=== PATIENT | male | born 1940 | race Caucasian/White ===

== ENCOUNTER → 2021-03-18 07:50 | Outpatient (CLI) | payer MEDICARE, SELFPAY ==
[2021-03-18 09:11] LABS: Alanine Aminotransferase 13 IU/L (<50); Albumin 3.8 g/dL (3.5-5.0); Albumin Globulin Ratio 1.6 (1.0-2.8); Alkaline Phosphatase 38 U/L (38-126); Aspartate Aminotransferase 20 IU/L (17-59); Bilirubin Total 0.8 mg/dL (0.2-1.3); Blood Urea Nitrogen 12 mg/dL (9-20); Carbon Dioxide 29 mmol/L (22-32); Chloride 104 mmol/L (98-107); Cholesterol 214 mg/dL (140-199); Estimated Glomerular Filt Rate > 60.0 mL/min (>60); Globulin 2.4 g/dL (1.7-4.1); Glucose 89 mg/dL (80-110); HDL Cholesterol 56 mg/dL (40-60); HEMOLYSIS < 15 (0-50); LDL Cholesterol Calculated 134 mg/dL (<100); Potassium 4.1 mmol/L (3.4-5.1); Sodium 137 mmol/L (137-145); Total Protein 6.2 g/dL (6.3-8.2); Triglycerides 120 mg/dL (35-150)
[2021-03-18 09:27] LABS: Free T4, Direct Thyroxine 1.01 ng/dL (0.78-2.19)
[2021-03-18 09:41] LABS: Thyroid Stimulating Hormone 2.94 uIU/mL (0.47-4.68)
== END ==
PROVIDERS: Family Provider Family Medicine; PCP Internal Medicine; Referring Provider Internal Medicine; Visit Provider Internal Medicine
DX: E03.9 Hypothyroidism, unspecified (principal); Z13.220 Encounter for screening for lipoid disorders
CPT/HCPCS: 36415; 80053; 80061; 84439; 84443

== ENCOUNTER → 2024-03-21 16:02 | Outpatient (CLI) | payer MEDICARE, SELFPAY ==
[2024-03-21 16:32] LABS: Add Manual Diff / Slide Review NO; Basophils Absolute Auto 100 /uL (0-100); Basophils Percent Auto 0.8 % (0-2); Eosinophils Absolute Auto 100 /uL (0-450); Eosinophils Percent Auto 1.9 % (2-4); Hematocrit 40.4 % (41-53); Hemoglobin 13.9 g/dL (13.5-17.5); Lymphocytes Absolute Auto 2200 /uL (1100-4500); Lymphocytes Percent Auto 35.5 % (25-40); Mean Corpuscular HGB Conc 34.3 % (30-36); Mean Corpuscular Hemoglobin 32.6 PG (26-34); Mean Corpuscular Volume 95.1 fL (80-100); Monocytes Absolute Auto 800 /uL (0-900); Monocytes Percent Auto 12.3 % (3-14); Neutrophils Absolute Auto 3100 /uL (1500-7000); Neutrophils Percent Auto 49.5 % (50-75); Platelet Count 148 X10^3/uL (150-400); Red Blood Cell Count 4.25 X10^6/uL (4.5-5.9); Red Cell Distribution Width 14.7 % (11.6-14.8); White Blood Cell Count 6.3 X10^3/uL (4.5-11.0)
[2024-03-21 17:02] LABS: Alanine Aminotransferase 11 IU/L (<50); Albumin 4.3 g/dL (3.5-5.0); Albumin Globulin Ratio 1.6 (1.0-2.8); Alkaline Phosphatase 42 U/L (38-126); Aspartate Aminotransferase 20 IU/L (17-59); BUN Creatinine Ratio 17.7 (6-22); Bilirubin Total 0.6 mg/dL (0.2-1.3); Blood Urea Nitrogen 14 mg/dL (9-20); Calcium 8.9 mg/dL (8.4-10.2); Carbon Dioxide 28 mmol/L (22-32); Chloride 108 mmol/L (98-107); Estimated Glomerular Filt Rate > 60 mL/min (>60); Globulin 2.7 g/dL (1.7-4.1); Glucose 102 mg/dL (80-110); HEMOLYSIS < 15 (0-50); Potassium 4.7 mmol/L (3.4-5.1); Sodium 139 mmol/L (137-145)
[2024-03-21 17:17] LABS: Free T3, Triiodothyronine Free 3.43 pg/mL (2.77-5.27); Free T4, Direct Thyroxine 1.15 ng/dL (0.78-2.19)
[2024-03-21 17:30] LABS: Thyroid Stimulating Hormone 1.87 uIU/mL (0.47-4.68)
== END ==
PROVIDERS: Family Provider Family Medicine; PCP Internal Medicine; Referring Provider Internal Medicine; Visit Provider Internal Medicine
DX: E03.9 Hypothyroidism, unspecified (principal); D64.9 Anemia, unspecified; Z79.899 Other long term (current) drug therapy
CPT/HCPCS: 36415; 80053; 84439; 84443; 84481; 85025

== ENCOUNTER → 2024-03-23 16:15 | Outpatient (CLI) | payer MEDICARE, SELFPAY ==
[2024-03-23 17:56] LABS: Appearance Urine UA SL CLOUDY; Bilirubin Urine UA NEGATIVE (NEGATIVE); Color Urine UA YELLOW; Glucose Urine UA NEGATIVE (Negative); Ketones Urine UA NEGATIVE (NEGATIVE); Leukocyte Esterase Urine UA 3+ (NEGATIVE); Nitrite Urine UA POSITIVE (Negative); Occult Blood Urine UA TRACE-INTACT (Negative); Protein Urine UA NEGATIVE (Negative)
[2024-03-23 18:06] LABS: RBC Urine 1-5/HPF (0-5/HPF); Urine Volume 10mL (spun)
[2024-03-23 18:07] LABS: Bacteria Urine Few (2-10); Culture Indicated Urine Specimen Cultured; Squamous Epithelial Cell Urine 1-5 /HPF (0-5/HPF); WBC Urine 30-100/HPF (0-5/HPF)
== END ==
PROVIDERS: Family Provider Family Medicine; PCP Internal Medicine; Referring Provider Internal Medicine; Visit Provider Internal Medicine
DX: M54.9 Dorsalgia, unspecified (principal); R39.198 Other difficulties with micturition
CPT/HCPCS: 81001; 87077; 87086; 87186

== ENCOUNTER 2024-04-02 18:42 | Emergency (ER) | payer MEDICARE, SELFPAY ==
[2024-04-02 18:59] VITALS: BP 123/58; PULSE 61; RESP 18; TEMP 36.9; O2SAT 96; BMI 20.8
--- NOTE | 2024-04-02 19:15 | EKG_ITS ---
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
[2024-04-02 19:28] LABS: Add Manual Diff / Slide Review NO; Basophils Absolute Auto 0 /uL (0-100); Basophils Percent Auto 0.4 % (0-2); Eosinophils Absolute Auto 0 /uL (0-450); Eosinophils Percent Auto 0.2 % (2-4); Hematocrit 36.7 % (41-53); Hemoglobin 12.8 g/dL (13.5-17.5); Lymphocytes Absolute Auto 900 /uL (1100-4500); Mean Corpuscular HGB Conc 34.8 % (30-36); Mean Corpuscular Hemoglobin 32.5 PG (26-34); Mean Corpuscular Volume 93.2 fL (80-100); Monocytes Absolute Auto 600 /uL (0-900); Monocytes Percent Auto 7.6 % (3-14); Neutrophils Absolute Auto 6800 /uL (1500-7000); Neutrophils Percent Auto 80.8 % (50-75); Platelet Count 177 X10^3/uL (150-400); Red Blood Cell Count 3.94 X10^6/uL (4.5-5.9); Red Cell Distribution Width 13.6 % (11.6-14.8); White Blood Cell Count 8.4 X10^3/uL (4.5-11.0)
[2024-04-02 19:37] LABS: Alanine Aminotransferase 11 IU/L (<50); Albumin 4.3 g/dL (3.5-5.0); Albumin Globulin Ratio 1.7 (1.0-2.8); Alkaline Phosphatase 44 U/L (38-126); Aspartate Aminotransferase 22 IU/L (17-59); BUN Creatinine Ratio 7.2 (6-22); Bilirubin Total 0.8 mg/dL (0.2-1.3); Blood Urea Nitrogen 10 mg/dL (9-20); Calcium 8.3 mg/dL (8.4-10.2); Carbon Dioxide 21 mmol/L (22-32); Chloride 94 mmol/L (98-107); Estimated Glomerular Filt Rate 50 mL/min (>60); Globulin 2.5 g/dL (1.7-4.1); Glucose 118 mg/dL (80-110); HEMOLYSIS < 15 (0-50); Lipase 71 U/L (23-300); Potassium 3.9 mmol/L (3.4-5.1); Sodium 124 mmol/L (137-145); Total Protein 6.8 g/dL (6.3-8.2)
--- NOTE | 2024-04-02 22:25 | DI.CT.S_ITS ---
PROCEDURE: CT ABDOMEN PELVIS W CON INDICATIONS: abdominal pain TECHNIQUE: After the administration of intravenous contrast, axial sections acquired from the lung bases to the pubic symphysis. Coronal and sagittal reformats were performed. For radiation dose reduction, the following was used: automated exposure control, adjustment of mA and/or kV according to patient size. COMPARISON: None. FINDINGS: Image quality: Diagnostic Lower chest: Bibasilar atelectasis. There are coronary calcifications. Liver: Suspected cysts near the hilum. Subcentimeter lesions are too small to characterize, probably also cysts Gallbladder and biliary system: Unremarkable, nondilated Pancreas: No ductal dilation. Spleen: Nonenlarged Adrenals: No discrete nodules Kidneys: Moderate bilateral pelvocaliectasis. No obstructing calcified stone is identified. There is a complicated lesion that may be partially cystic measuring 2.9 x 1.8 cm at the left upper pole. Vessels and lymph nodes: The main portal vein is patent. No abdominal aortic aneurysm. Atherosclerotic disease is present. No pathologic lymph nodes by size criteria. Bowel and peritoneum: No evidence of small bowel obstruction. Mild fat stranding and wall thickening is seen surrounding the descending colon distally.. No pathologic ascites. Body wall: Unremarkable Pelvis: Markedly distended bladder, with diverticula trabeculations. Heterogeneous prostate with possible median lobe hypertrophy. Prostatomegaly. Right probable inguinal hernia containing fat and fluid. Bones: Degenerative changes. IMPRESSION: Markedly distended bladder with multiple trabeculations and diverticula. Moderate upstream pelvocaliectasis of both kidneys. Heterogeneous prostate with probable median lobe hypertrophy and BPH, correlate with PSA and possible MRI. Mild fat stranding of the distal colon, possibly nonspecific colitis. Consider colonoscopy correlation if clinically indicated. No small bowel obstruction. Complicated lesion at the left superior renal pole, likely partially solid and partially cystic. Consider renal mass protocol MRI to further evaluate. Possible right inguinal hernia containing fat and fluid, this could be better evaluated ultrasound if needed. Other findings as above. Dictated by: Shaheen Alvarado M.D. on 04/02/2024 at 23:26 Approved by: Shaheen Alvarado M.D. on 04/02/2024 at 23:31
--- NOTE | 2024-04-02 22:39 | EKG_ITS ---
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
--- NOTE | 2024-04-02 22:41 | ED.ABDPAIN ---
HPI - Abdominal Pain General Chief Complaint: Abdominal Pain Stated Complaint: Constipation, swollen abd, pain Time Seen by Provider: 04/02/24 22:25 Source: patient and family Mode of arrival: Wheelchair History of Present Illness HPI narrative: 83-year-old male with recent diagnosis urinary tract infection, day 9 of 10 day course Bactrim, denies prior abdominal surgery history, prior remote colonoscopy, no known bowel cancers, now with increasing abdominal pain, last bowel movement 3 days ago. He denies painful urination now. No flank pain. No fevers or chills. No shortness of breath or chest pain. No recent cough. He denies history of colitis, diverticulitis. He feels his urinary tract symptoms are better on the recent antibiotic. Related Data Previous Rx's Medication Instructions Recorded sildenafil 100 mg tablet 50 - 100 mg (0.5 - 1 x 100 mg) PO 03/21/21 DAILY PRN sexual activity #5 tabs citalopram 10 mg tablet 10 mg PO DAILY #90 tabs 03/22/24 sulfamethoxazole 800 1 tab PO BID 10 days #20 tabs 03/24/24 mg-trimethoprim 160 mg tablet amoxicillin 875 mg-potassium 1 tab PO BID #20 tabs 04/03/24 clavulanate 125 mg tablet tamsulosin 0.4 mg capsule 0.4 mg PO DAILY #7 caps 04/03/24 Allergies Allergy/AdvReac Type Severity Reaction Status Date / Time No Known Drug Allergies Allergy Verified 04/02/24 18:59 Review of Systems Review of Systems Narrative: per HPI Patient History Medical History (Updated 04/03/24 @ 00:23 by Garett Hayes MD) Dementia Acquired hypothyroidism Surgical History Anesthesia History of hernia repair Family History Father Cancer Mother Bronchitis Social History Smoking Status: Never smoker Smoking Status: Never smoker Substance Use Type: does not use Exam Narrative Exam Narrative: GENERAL: Well-developed patient, in mild distress. HEAD: Atraumatic. Normocephalic. EYES: Pupils equal round and reactive. Extraocular motions intact. No scleral icterus. No injection or drainage. ENT: Nose without bleeding, purulent drainage. Throat without erythema, tonsillar hypertrophy or exudate. Airway patent. NECK: Trachea midline. Non tender CARDIOVASCULAR: Regular rate and rhythm without murmurs, gallops, or rubs. RESPIRATORY: Clear to auscultation. Breath sounds equal bilaterally. No wheezes, rales, or rhonchi. GASTROINTESTINAL: Protuberant abdomen predominant lower, no obvious ventral periumbilical or inguinal hernias, no guarding or rebound, hypoactive bowel tones without rushes or tinkles. No obvious fluid wave. EXTREMITIES: No edema or joint tenderness. BACK: Nontender without deformity or crepitance. No flank tenderness. NEURO: AOx3. SKIN: No rash or erythema of visible areas Initial Vital Signs Initial Vital Signs: Vital Signs Temperature 98.5 F 04/02/24 18:59 Pulse Rate 61 04/02/24 18:59 Respiratory Rate 18 04/02/24 18:59 Blood Pressure 123/58 L 04/02/24 18:59 Pulse Oximetry 96 04/02/24 18:59 Oxygen Delivery Method Room Air 04/02/24 18:59 Course Orders Ordered: ED Orders 04/03/24 03:00 Urine Microscopic Stat Discontinued Medications Ampicillin Sodium/Sulbactam (Sodium 3 gm/ Sodium Chloride) 100 mls @ 200 mls/hr IV NOW ONE Stop: 04/03/24 00:21 Last Infusion: 04/03/24 02:40 Dose: Infused Documented By: Admin: 04/03/24 01:35 Dose: 200 mls/hr Documented By: BRIDGER Ondansetron HCl (Ondansetron 4 Mg/2 Ml Inj) 4 mg IV NOW PRN PRN Reason: Nausea And Vomiting Ondansetron HCl (Ondansetron 4 Mg Odt) 4 mg PO NOW PRN PRN Reason: Nausea And Vomiting Vital Signs Vital signs: Vital Signs - 8 hr 04/03/24 01:45 04/03/24 03:24 04/03/24 03:30 Pulse Rate 58 L 59 L Respiratory Rate 18 Blood Pressure 133/63 110/55 L Pulse Oximetry 98 95 Oxygen Delivery Method Room Air 04/03/24 03:30 04/03/24 03:32 04/03/24 04:00 Pulse Rate 56 L 56 L Respiratory Rate 18 Blood Pressure 110/55 L 110/55 L Pulse Oximetry 96 98 Oxygen Delivery Method Room Air 04/03/24 04:00 04/03/24 04:30 04/03/24 04:30 Pulse Rate 56 L 58 L Respiratory Rate Blood Pressure 109/54 L Pulse Oximetry 81 L 97 Oxygen Delivery Method 04/03/24 05:00 04/03/24 05:01 04/03/24 05:30 Pulse Rate 59 L 59 L Respiratory Rate Blood Pressure 97/46 L Pulse Oximetry 97 Oxygen Delivery Method 04/03/24 05:33 04/03/24 06:11 Pulse Rate 60 Respiratory Rate 18 Blood Pressure 98/47 L 115/56 L Pulse Oximetry 98 Oxygen Delivery Method Room Air MDM - Abdominal Pain Lab Data 04/02/24 19:12 04/02/24 19:12 Labs: Lab Results 04/02/24 04/03/24 Range/Units 19:12 03:00 WBC 8.4 (4.5-11.0) X10^3/uL RBC 3.94 L (4.5-5.9) X10^6/uL Hgb 12.8 L (13.5-17.5) g/dL Hct 36.7 L (41-53) % MCV 93.2 (80-100) fL MCH 32.5 (26-34) PG MCHC 34.8 (30-36) % RDW 13.6 (11.6-14.8) % Plt Count 177 (150-400) X10^3/uL Neut % (Auto) 80.8 H (50-75) % Lymph % (Auto) 11.0 L (25-40) % [place] % (Auto) 7.6 (3-14) % Eos % (Auto) 0.2 L (2-4) % Baso % (Auto) 0.4 (0-2) % Neut # (Auto) 6800 (1763-2326) /uL Lymph # (Auto) 900 L (5751-2966) /uL [place] # (Auto) 600 (0-900) /uL Eos # (Auto) 0 (0-450) /uL Baso # (Auto) 0 (0-100) /uL Sodium 124 L (137-145) mmol/L Potassium 3.9 (3.4-5.1) mmol/L Chloride 94 L (98-107) mmol/L Carbon Dioxide 21 L (22-32) mmol/L BUN 10 (9-20) mg/dL Creatinine 1.39 H (0.66-1.25) mg/dL Estimated GFR 50 L (>60) mL/min BUN/Creatinine Ratio 7.2 (6-22) Glucose 118 H (80-110) mg/dL Calcium 8.3 L (8.4-10.2) mg/dL Total Bilirubin 0.8 (0.2-1.3) mg/dL AST 22 (17-59) IU/L ALT 11 (<50) IU/L Alkaline Phosphatase 44 (38-126) U/L Total Protein 6.8 (6.3-8.2) g/dL Albumin 4.3 (3.5-5.0) g/dL Globulin 2.5 (1.7-4.1) g/dL Albumin/Globulin Ratio 1.7 (1.0-2.8) Lipase 71 (23-300) U/L Urine RBC 5-10/hpf H (0-5/HPF) Urine WBC None seen (0-5/HPF) Ur Squamous Epith Cells 0-1 /hpf (0-5/HPF) Urine Bacteria None seen (None) Ur Culture Indicated? Cult not indicated Vol Urine Centrifuged 10ml (spun) Point of care testing: Urine Dip Bedside Urine Glucose Negative Bedside Urine Bilirubin - Negative Bedside Urine Ketone - Negative Urine Specific [place] 1.010 Bedside Urine Occult Blood +++ Bedside Urine pH 6.0 Bedside Urine Protein - Negative Bedside Urine Urobilinogen 0.2 Bedside Urine Nitrite - Negative Bedside Urine Leukocytes - Negative Esterase ECG Data Attestation: I personally reviewed and interpreted this ECG as follows: Interpretation: Sinus bradycardia with frequent PVCs, ventricular rate 64, no obvious ST segment elevation on sinus beats. CT 122, QRS 92, QTC 476. MDM Narrative Medical decision making narrative: 83-year-old male with no prior abdominal pelvic surgeries, prior remote colonoscopy, no known colon cancers, last bowel movement 3 days ago, increasing lower abdominal discomfort. Completing a course of 10 days Bactrim by tomorrow for urinary tract infection, those symptoms seemed to be improving. No problems urinating. Last bowel movement was 3 days ago however he is having some loose trickling stools in the waiting room area and shortly after triage in the ED room. Stool studies requested, C diff toxin requested. Labs pending. Declines pain medications for now GFR favorable, CT abdomen and pelvis imaging requested. Stool study results still pending. CT abdomen and pelvis with IV contrast. Impressions: ?Markedly distended bladder with multiple trabeculations and diverticula. Moderate upstream pelvocaliectasis of both kidneys. Heterogeneous prostate with probable median lobe hypertrophy and BPH, correlate with PSA and possible MRI. Mild fat stranding of the distal colon, possible nonspecific colitis. Consider colonoscopy correlation if clinically indicated. No small bowel obstruction. Complicated lesion at the superior renal pole, likely partially solid and partially cystic. Consider renal mass protocol MRI to further evaluate. Possible right inguinal hernia containing fat and fluid, this could be better evaluated on ultrasound if needed. Other findings as above. Radiology report Durant urinary catheter placed, IV Unasyn for possible uncomplicated focal sigmoid colitis, discharge on oral Augmentin Critical Care Time Critical Care Time Critical Care Time: Yes Total Critical Care Time: 31 Attestation: The high probability of a clinically significant, sudden or life threatening deterioration of the [abdominopelvic, which gastrointestinal] system(s) required my full and direct attention, intervention and personal management. The aggregate critical care time was [31] minutes. This time is in addition to time spent performing reported procedures but includes the following: [x] Data Review and interpretation [x] Patient assessment and monitoring of vital signs [x] Documentation [x] Medication orders and management Discharge Plan Departure Patient Disposition: Home Clinical Impression: Acute urinary retention, Inguinal hernia, right, Colitis Activity Restrictions/Additional Instructions: Recent course of Bactrim antibiotic for urinary tract infection, increasing abdominal distention, last bowel movement 3 days ago, CT abdomen and pelvis performed which showed no bowel obstruction changes but did show markedly distended bladder, kidney lesion of unclear significance on the left, right inguinal hernia that was not associated with obstruction, and also some colitis changes in the distal colon. IV antibiotics initiated for possible colitis with Unasyn, prescription for Augmentin course of antibiotics for colitis. Durant catheter placed to drain the bladder, large volume nonbloody was drained, leave catheter in place for now, follow up with Urology advised. Trial of tamsulosin to see if that helps increase success of keeping Durant catheter out when removed in follow up, 1 tablet daily pending urology consult. Recheck symptoms with your regular provider in the next couple of days. Return to this/nearest emergency department for any change or worsening or any concerns prior Follow up MRI studies and outpatient advised for kidney lesion further workup Prescriptions: New amoxicillin-pot clavulanate 875-125 mg tablet 1 tab PO BID Qty: 20 0RF tamsulosin 0.4 mg capsule 0.4 mg PO DAILY Qty: 7 0RF No Action citalopram 10 mg tablet 10 mg PO DAILY Qty: 90 3RF sulfamethoxazole-trimethoprim 800-160 mg tablet 1 tab PO BID 10 Days Qty: 20 0RF sildenafil 100 mg tablet 50 - 100 mg PO DAILY PRN (Reason: sexual activity) Qty: 5 0RF Rx Instructions: administer 30 minutes to 4 hours before activity Referrals: Estuardo Hinton MD [Primary Care Provider] - Primo Mohamud MD [Physician] - Stand Alone Forms: Patient Portal/API
[2024-04-03] VITALS (11 sets, daily range): BP systolic 97–133; BP diastolic 46–63; PULSE 56–60; RESP 18; O2SAT 81–98
[2024-04-03] MEDS: AMPICILLIN/SULBACTAM 3 GM 3 GM in SODIUM CHLORIDE 0.9% 100 ML IV (01:35)
[2024-04-03 03:16] LABS: Bacteria Urine None Seen; Culture Indicated Urine Cult Not Indicated; RBC Urine 5-10/HPF (0-5/HPF); Squamous Epithelial Cell Urine 0-1 /HPF (0-5/HPF); Urine Volume 10mL (spun); WBC Urine None Seen (0-5/HPF)
== END 2024-04-03 06:22 | disposition home or self-care (01) ==
PROVIDERS: Emergency Provider Emergency Medicine; Family Provider Family Medicine; PCP Internal Medicine
DX: K52.9 Noninfective gastroenteritis and colitis, unspecified (principal); K40.90 Unilateral inguinal hernia, without obstruction or gangrene, not specified as recurrent; R33.8 Other retention of urine; R10.9 Unspecified abdominal pain
CPT/HCPCS: 36415; 74177; 80053; 81003; 81015; 83690; 85025; 93005; 96365; 99284; J0295; Q9967

== ENCOUNTER → 2024-04-18 11:24 | Outpatient (CLI) | payer MEDICARE, SELFPAY ==
[2024-04-18 13:12] LABS: BUN Creatinine Ratio 9.5 (6-22); Blood Urea Nitrogen 7 mg/dL (9-20); Calcium 8.5 mg/dL (8.4-10.2); Carbon Dioxide 29 mmol/L (22-32); Chloride 105 mmol/L (98-107); Estimated Glomerular Filt Rate > 60 mL/min (>60); Glucose 72 mg/dL (80-110); HEMOLYSIS < 15 (0-50); Potassium 4.6 mmol/L (3.4-5.1); Sodium 138 mmol/L (137-145)
== END ==
PROVIDERS: Family Provider Family Medicine; PCP Internal Medicine; Referring Provider Internal Medicine; Visit Provider Internal Medicine
DX: N28.1 Cyst of kidney, acquired (principal)
CPT/HCPCS: 36415; 80048

== ENCOUNTER → 2024-04-21 13:12 | Outpatient (CLI) | payer MEDICARE, SELFPAY ==
--- NOTE | 2024-04-21 13:17 | DI.MRI.S_ITS ---
PROCEDURE: MR ABDOMEN RENAL PROTOCOL INDICATIONS: left renal cyst TECHNIQUE: Coronal HASTE through abdomen and pelvis; axial 2D FLASH in- and [id number] (with and without fat saturation), and breath-hold T2 FSE from the hepatic dome to the bottom of the kidneys. Coronal HASTE MR urogram of kidneys and bladder. Dynamic coronal VIBE during IV gadolinium administration; postgadolinium axial VIBE or 2D FLASH with fat saturation from the hepatic dome through the kidneys. COMPARISON: [facility], CT, CT ABDOMEN PELVIS W CON, 04/02/2024, 22:37. FINDINGS: Image quality: Suboptimal due to motion artifact. Kidneys and Ureters: No hydronephrosis. No solid mass. N on the superior pole of the left kidney, there is a cystic lesion with thin internal septations and a small nodular component measuring 8 x 8 mm (series 6, image 24). The cyst measures 1.9 x 1.7 cm. The cyst is exophytic. OTHER: Lung bases: Unremarkable. Liver: Hepatic cysts. Gallbladder: No gallstones or wall thickening. Biliary ducts: No biliary dilation. Pancreas: No ductal dilation. 8 mm cystic lesion in the pancreatic tail, without connection to the pancreatic duct (series 6, image 24). Spleen: Size is within normal limits. Adrenal Glands: No adrenal nodules. Stomach and Bowel: Normal colonic caliber, without significant wall thickening. Peritoneum: No abnormal intraperitoneal fluid. No free air. Ventral Wall: No hernia. Abdominal Nodes: No retroperitoneal or mesenteric adenopathy by size criteria. Vessels: Aorta and inferior vena cava are normal in size. Bones: No aggressive osseous abnormality. 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 Recommend urology referral. 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 Two year follow-up with MRI is recommended. Dictated by: Jerardo Ortiz M.D. on 04/21/2024 at 14:03 Approved by: Jerardo Ortiz M.D. on 04/21/2024 at 14:14
== END ==
PROVIDERS: Family Provider Family Medicine; PCP Internal Medicine; Referring Provider Internal Medicine; Visit Provider Internal Medicine
DX: N28.1 Cyst of kidney, acquired (principal); K86.2 Cyst of pancreas; K76.89 Other specified diseases of liver
CPT/HCPCS: 74183; A9579

== ENCOUNTER → 2024-04-24 13:49 | Outpatient (CLI) | payer MEDICARE, SELFPAY | PROVIDERS: Family Provider Family Medicine; PCP Internal Medicine; Visit Provider Urology | DX: N40.1 Benign prostatic hyperplasia with lower urinary tract symptoms (principal) | CPT/HCPCS: 87086 ==

== ENCOUNTER → 2024-05-02 10:02 | Outpatient (CLI) | payer MEDICARE, SELFPAY ==
--- NOTE | 2024-05-02 10:30 | DI.CT.S_ITS ---
PROCEDURE: CT ABDOMEN RENAL PROTOCOL INDICATIONS: Follow-up complex cyst TECHNIQUE: Optional 5 mm thick noncontrast images acquired from the diaphragm to the iliac crests. After the administration of intravenous contrast, 5 mm thick images again acquired from the diaphragm to the iliac crests in the arterial and urographic phases. 5 mm thick coronal and sagittal reformats were then acquired. For radiation dose reduction, the following was used: automated exposure control, adjustment of mA and/or kV according to patient size. COMPARISON: [facility], , ABDOMEN RENAL PROTOCOL, 04/21/2024, 13:25. FINDINGS: Image quality: Diagnostic. Kidneys and Ureters: Mostly exophytic, 1.6 x 2.3 centimeter cystic mass with enhancing 1 centimeter nodule along the medial margin is present along the anterior margin of the left kidney. Renal vein is widely patent. No retroperitoneal adenopathy. No retroperitoneal adenopathy. OTHER: Lower chest: Small pericardial effusion. Liver: No solid mass. Hepatic cysts. Gallbladder: No radiopaque gallstones or wall thickening. Biliary ducts: No biliary dilation. Pancreas: No ductal dilation. Spleen: Size is within normal limits. Adrenal Glands: No adrenal nodules. Stomach and Bowel: Normal colonic caliber, without significant wall thickening. Peritoneum: No abnormal intraperitoneal fluid. No free air. Ventral Wall: No hernia. Abdominal Nodes: No retroperitoneal or mesenteric adenopathy by size criteria. Vessels: Aorta and inferior vena cava are normal in size. Bones: No aggressive osseous abnormality. IMPRESSION: Bosniak 4 cystic mass on the anterior margin of the left kidney, containing an enhancing nodule. No retroperitoneal adenopathy. Renal vein is widely patent. Dictated by: Jerardo Ortiz M.D. on 05/03/2024 at 12:32 Approved by: Jerardo Ortiz M.D. on 05/03/2024 at 12:37
== END ==
LOC: CT 10:03
PROVIDERS: Family Provider Family Medicine; PCP Internal Medicine; Referring Provider Urology; Visit Provider Urology
DX: N28.1 Cyst of kidney, acquired (principal); N28.89 Other specified disorders of kidney and ureter; N40.1 Benign prostatic hyperplasia with lower urinary tract symptoms; Z97.8 Presence of other specified devices; K76.89 Other specified diseases of liver
CPT/HCPCS: 74170; 87086; Q9967

== ENCOUNTER → 2024-05-02 13:45 | Outpatient (CLI) | payer MEDICARE, SELFPAY | PROVIDERS: Family Provider Family Medicine; PCP Internal Medicine; Visit Provider Urology | DX: N40.1 Benign prostatic hyperplasia with lower urinary tract symptoms (principal); Z97.8 Presence of other specified devices | CPT/HCPCS: 87086 ==

== ENCOUNTER → 2024-06-09 13:09 | Outpatient (CLI) | payer MEDICARE, SELFPAY | PROVIDERS: Family Provider Family Medicine; PCP Internal Medicine; Visit Provider Urology | DX: N39.0 Urinary tract infection, site not specified (principal) | CPT/HCPCS: 87077; 87086; 87186 ==

== ENCOUNTER → 2024-08-07 11:48 | Outpatient (CLI) | payer MEDICARE, SELFPAY ==
[2024-08-07 12:49] LABS: Add Manual Diff / Slide Review NO; Basophils Absolute Auto 0 /uL (0-100); Basophils Percent Auto 0.2 % (0-2); Eosinophils Absolute Auto 100 /uL (0-450); Eosinophils Percent Auto 1.1 % (2-4); Hematocrit 36.4 % (41-53); Hemoglobin 12.4 g/dL (13.5-17.5); Lymphocytes Absolute Auto 1300 /uL (1100-4500); Lymphocytes Percent Auto 26.3 % (25-40); Mean Corpuscular Hemoglobin 32.1 PG (26-34); Mean Corpuscular Volume 94.5 fL (80-100); Monocytes Absolute Auto 500 /uL (0-900); Monocytes Percent Auto 10.3 % (3-14); Neutrophils Absolute Auto 3000 /uL (1500-7000); Neutrophils Percent Auto 62.1 % (50-75); Platelet Count 143 X10^3/uL (150-400); Red Blood Cell Count 3.85 X10^6/uL (4.5-5.9); Red Cell Distribution Width 14.9 % (11.6-14.8); White Blood Cell Count 4.8 X10^3/uL (4.5-11.0)
[2024-08-07 13:14] LABS: Alanine Aminotransferase 10 IU/L (<50); Albumin 4.1 g/dL (3.5-5.0); Albumin Globulin Ratio 1.9 (1.0-2.8); Alkaline Phosphatase 37 U/L (38-126); Aspartate Aminotransferase 17 IU/L (17-59); BUN Creatinine Ratio 24.6 (6-22); Bilirubin Total 0.5 mg/dL (0.2-1.3); Blood Urea Nitrogen 16 mg/dL (9-20); Calcium 9.1 mg/dL (8.4-10.2); Carbon Dioxide 28 mmol/L (22-32); Chloride 104 mmol/L (98-107); Estimated Glomerular Filt Rate > 60 mL/min (>60); Globulin 2.2 g/dL (1.7-4.1); Glucose 89 mg/dL (80-110); HEMOLYSIS < 15 (0-50); Potassium 4.4 mmol/L (3.4-5.1); Sodium 137 mmol/L (137-145); Total Protein 6.3 g/dL (6.3-8.2)
[2024-08-07 13:46] LABS: TSH w/ Reflex to FT4 4.81 uIU/mL (0.47-4.68)
[2024-08-07 14:11] LABS: Free T4, Direct Thyroxine 0.88 ng/dL (0.78-2.19)
== END ==
PROVIDERS: Family Provider Family Medicine; PCP Internal Medicine; Referring Provider Internal Medicine; Visit Provider Internal Medicine
DX: R33.9 Retention of urine, unspecified (principal); E03.9 Hypothyroidism, unspecified; N13.9 Obstructive and reflux uropathy, unspecified
CPT/HCPCS: 36415; 80053; 84439; 84443; 85025

== ENCOUNTER → 2024-08-14 11:18 | Outpatient (CLI) | payer MEDICARE, SELFPAY | PROVIDERS: Family Provider Family Medicine; PCP Internal Medicine; Visit Provider Urology | DX: N39.0 Urinary tract infection, site not specified (principal) | CPT/HCPCS: 51702; 87077; 87086; 87186 ==

== ENCOUNTER 2024-08-26 08:57 | Emergency (ER) | payer MEDICARE, SELFPAY ==
[2024-08-26] VITALS (11 sets, daily range): BP systolic 112–136; BP diastolic 56–62; PULSE 30–54; RESP 14–40; TEMP 36.6; O2SAT 97–100; BMI 22.3
--- NOTE | 2024-08-26 09:19 | EKG_ITS ---
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
--- NOTE | 2024-08-26 09:31 | PC.NURSE ---
HR on monitor noted to be 30, bigeminy. confirmed with palpation. 16 F coude cath placed. HR now 55-60 NSR with ectopy noted.
--- NOTE | 2024-08-26 09:45 | ED.MALEGU ---
HPI - Male Genitourinary General Chief complaint: Urogenital-Male Stated complaint: catheter came out last night Time Seen by Provider: 08/26/24 09:45 History of Present Illness HPI Narrative: Patient is a 84-year-old male with a history of neurogenic bladder, hypothyroidism, dementia, presents to the emergency department from home with family for evaluation of Durant catheter issue. He states that yesterday his Durant catheter came out, was noted that the Durant catheter balloon was deflated, he states that he also felt a little bit weaker today, he states that he was up all night due to urinary urgency but was not able to urinate very much given the fact that his Durant catheter was not in place. Upon initial evaluation patient was bradycardic but not complaining of any chest pain shortness breath headache visual disturbances, patient family member at bedside states this happened happened in the past whenever he has a full bladder. there was significant improvement to his heart rate after Durant catheter was replaced, patient is not complaining of any other symptoms at this time. Related Data Previous Rx's Medication Instructions Recorded finasteride 5 mg tablet 5 mg PO DAILY #30 tabs 05/26/24 tamsulosin 0.4 mg capsule 0.8 mg (2 x 0.4 mg) PO DAILY #60 05/26/24 caps citalopram 20 mg tablet 20 mg PO DAILY #90 tabs 08/11/24 Allergies Allergy/AdvReac Type Severity Reaction Status Date / Time No Known Drug Allergies Allergy Verified 08/07/24 11:05 Review of Systems Review of Systems Narrative: General: positive general weakness, Denies fever, chills, weight loss HEENT: Denies headache, eye drainage, eye irritation, head trauma, sore throat, voice change Cardiovascular: Denies any chest pain, palpitations, shortness of breath, tachycardia Respiratory: Denies any shortness of breath, cough, wheeze, stridor GI/: positive Durant catheter issue, positive urinary frequencyDenies any abdominal pain, nausea, vomiting, diarrhea, bright red blood per rectum, melanotic stools, udysuria, hematuria MSK: Denies any joint pain, muscle pains, swelling Skin: Denies any rashes, lesions, discoloration Neuro: Denies any headache, lightheadedness, dizziness, fainting, weakness Psych: Denies SI/HI Patient History Medical History (Updated 08/26/24 @ 11:13 by Nasir Dill DO) Urinary tract infection Urinary retention Durant catheter in place Obstructive uropathy Complex renal cyst Dementia Acquired hypothyroidism Surgical History Anesthesia History of hernia repair Family History Father Cancer Mother Bronchitis Social History Smoking Status: Never smoker alcohol intake: never caffeine: Yes Smoking Status: Never smoker Substance Use Type: does not use Exam Narrative Exam Narrative: General: Cooperative, comfortable, well-developed, not in acute distress HEENT: Normocephalic, atraumatic, PERRLA, normal sclera, eyelids normal, Neck: Active full range of motion, atraumatic Chest: Normal to inspection, negative crepitus, no overlying erythema ecchymosis Respiratory: Normal respiratory effort, not in acute respiratory distress, clear to auscultation bilaterally negative cough, wheeze, tachypnea, rhonchi, rales Cardiology: Regular rate rhythm negative gallop, murmur, rubs GI/: Normal to inspection, soft, nonrigid, no tenderness to palpation, exam: Durant catheter was replaced draining normal colored urine MSK: Full range of active range of motion of all 4 extremities, atraumatic Skin: No rashes lesions noted Neuro: Alert awake oriented x3, moves all 4 extremities spontaneously, cranial nerves intact, able to answer all questions appropriately follows commands appropriately, NIH of 0 Psych: Cooperative, negative suicidal or homicidal ideations Initial Vital Signs Initial Vital Signs: Vital Signs Pulse Rate 31 L 08/26/24 09:13 Pulse Oximetry 99 08/26/24 09:13 Course Orders Ordered: ED Orders 08/26/24 09:18 CBC Auto Diff [Complete Blood Count AUTO DIFF] Stat CMP [Comprehensive Metabolic Panel] Stat Lipase Stat MAG [Magnesium] Stat Troponin & CK Cardiac Panel Stat 08/26/24 09:35 EKG-12 Lead Stat 08/26/24 09:54 XR chest 1V Stat Vital Signs Vital signs: Vital Signs - 8 hr 08/26/24 09:13 08/26/24 09:28 08/26/24 09:30 Temperature 97.8 F Pulse Rate 31 L 30 L Respiratory Rate 16 Blood Pressure 136/62 124/58 L Pulse Oximetry 99 99 Oxygen Delivery Method Room Air 08/26/24 09:30 Temperature Pulse Rate 54 L Respiratory Rate 28 H Blood Pressure Pulse Oximetry 99 Oxygen Delivery Method MDM - Male Genitourinary Differential Diagnosis Differential diagnosis: Likely other ( ACS, arrhythmia, Durant catheter malfunction) Lab Data 08/26/24 09:18 08/26/24 09:18 Labs: Lab Results 08/26/24 Range/Units 09:18 WBC 7.2 (4.5-11.0) X10^3/uL RBC 4.12 L (4.5-5.9) X10^6/uL Hgb 13.0 L (13.5-17.5) g/dL Hct 39.1 L (41-53) % MCV 94.9 (80-100) fL MCH 31.6 (26-34) PG MCHC 33.3 (30-36) % RDW 14.9 H (11.6-14.8) % Plt Count 142 L (150-400) X10^3/uL Neut % (Auto) 78.7 H (50-75) % Lymph % (Auto) 14.3 L (25-40) % [place] % (Auto) 6.3 (3-14) % Eos % (Auto) 0.4 L (2-4) % Baso % (Auto) 0.3 (0-2) % Neut # (Auto) 5700 (5978-6715) /uL Lymph # (Auto) 1000 L (7471-1768) /uL [place] # (Auto) 500 (0-900) /uL Eos # (Auto) 0 (0-450) /uL Baso # (Auto) 0 (0-100) /uL Sodium 134 L (137-145) mmol/L Potassium 3.6 (3.4-5.1) mmol/L Chloride 104 (98-107) mmol/L Carbon Dioxide 24 (22-32) mmol/L BUN 11 (9-20) mg/dL Creatinine 0.73 (0.66-1.25) mg/dL Estimated GFR > 60 (>60) mL/min BUN/Creatinine Ratio 15.1 (6-22) Glucose 115 H (80-110) mg/dL Calcium 8.6 (8.4-10.2) mg/dL Magnesium 2.0 (1.6-2.3) mg/dL Total Bilirubin 0.7 (0.2-1.3) mg/dL AST 40 (17-59) IU/L ALT 18 (<50) IU/L Alkaline Phosphatase 46 (38-126) U/L Total Creatine Kinase 60 (55-170) U/L Troponin I < 0.012 (0.01-0.034) ng/mL Total Protein 6.5 (6.3-8.2) g/dL Albumin 4.0 (3.5-5.0) g/dL Globulin 2.5 (1.7-4.1) g/dL Albumin/Globulin Ratio 1.6 (1.0-2.8) Lipase 79 (23-300) U/L Urine Dip Bedside Urine Glucose Negative Bedside Urine Bilirubin - Negative Bedside Urine Ketone +/- 5 Urine Specific [place] 1.015 Bedside Urine Occult Blood ++ Bedside Urine pH 6.0 Bedside Urine Protein +/- 15 Bedside Urine Urobilinogen - Negative Bedside Urine Nitrite - Negative Bedside Urine Leukocytes ++ 125 Esterase Imaging Data Chest x-ray: Radiologist's Impression: [address] [address] XRay Report Signed Patient: Carmelo Mejias MR#: [id number] : 1940 Acct:[id number] Age/Sex: 84 / M Date of Service: 08/26/24 Loc: ED Accession Number: [id number] Procedure: XR chest 1V Ordering Provider: Nasir Dill D.O. PROCEDURE: XR CHEST 1V INDICATIONS: weakness TECHNIQUE: One view of the chest was acquired. COMPARISON: None. FINDINGS: Surgical changes and devices: None. Lungs and pleura: Lungs are clear. No pleural effusions or pneumothorax. Mediastinum: Mediastinal contours appear normal. Heart size is normal. Bones and chest wall: No suspicious bony lesions. Age-appropriate bony degenerative changes are seen. Overlying soft tissues appear unremarkable. IMPRESSION: No focal infiltrates are seen. ECG Data Interpretation: EKG interpreted ED physician sinus bradycardia at 60 beats per minute, QTC 436, occasional PVC noted, normal axis, nonspecific ST changes, no STEMI, this is similar to previous performed on 04/02/2024. MDM Narrative Medical decision making narrative: Patient is a 84-year-old male with a history of neurogenic bladder, bradycardia comes into the ED from home for evaluation of Durant catheter malfunction. States that less than 24 hours ago with Durant catheter fell out, states that the balloon was deflated. States that he was up multiple times earlier today given urinary frequency with mild dribbling therefore was complaining of some increased weakness but denies any actual headache visual disturbances dizziness chest pain shortness breath fever chills nausea vomiting abdominal pain or any other GI / symptoms time. Patient did have his Durant catheter replaced 16 [place] without any complications. Patient with urinalysis most likely indicative of colonization given chronic indwelling Durant catheter therefore will not treat for urinary tract infection at this time but informed patient to follow up with Urology in outpatient setting. Patient states that he does have a history of bradycardia, states that it is normally worse whenever he has a full bladder he was watched for an extended amount of time here in the emergency department without any abnormal findings, I did instruct him to follow up with Cardiology in outpatient setting, family member and patient verbalized understanding of this was given strict return precautions safe for discharge home with outpatient follow up Discharge Plan Departure Patient Disposition: Home Clinical Impression: Malfunction of Durant catheter Activity Restrictions/Additional Instructions: please follow up with Urology and Cardiology Please read the discharge instructions sheet carefully and bring all papers to all doctor follow-up visits, as it may contain information that your doctor may want to see. Disease processes change and evolve, if your symptoms worsen or if you develop any new symptoms that are concerning to you please return for evaluation. Your evaluation today does not show any evidence of any life-threatening/serious illnesses requiring admission to the hospital or surgery. Please follow-up with your doctor for re-evaluation in approximately 1 day. Seek immediate medical attention for any worrisome symptoms. Prescriptions: No Action citalopram 20 mg tablet 20 mg PO DAILY Qty: 90 3RF tamsulosin 0.4 mg capsule 0.8 mg PO DAILY Qty: 60 12RF finasteride 5 mg tablet 5 mg PO DAILY Qty: 30 12RF Referrals: Estuardo Hinton MD [Primary Care Provider] - Stand Alone Forms: Patient Portal/API/Survey
--- NOTE | 2024-08-26 09:54 | DI.RAD.S_ITS ---
PROCEDURE: XR CHEST 1V INDICATIONS: weakness TECHNIQUE: One view of the chest was acquired. COMPARISON: None. FINDINGS: Surgical changes and devices: None. Lungs and pleura: Lungs are clear. No pleural effusions or pneumothorax. Mediastinum: Mediastinal contours appear normal. Heart size is normal. Bones and chest wall: No suspicious bony lesions. Age-appropriate bony degenerative changes are seen. Overlying soft tissues appear unremarkable. IMPRESSION: No focal infiltrates are seen. Portable chest within normal limits for age. Dictated by: Warner Moran M.D. on 08/26/2024 at 9:23 Approved by: Warner Moran M.D. on 08/26/2024 at 9:24
[2024-08-26 10:00] LABS: Add Manual Diff / Slide Review NO; Basophils Absolute Auto 0 /uL (0-100); Basophils Percent Auto 0.3 % (0-2); Eosinophils Absolute Auto 0 /uL (0-450); Eosinophils Percent Auto 0.4 % (2-4); Hematocrit 39.1 % (41-53); Lymphocytes Absolute Auto 1000 /uL (1100-4500); Lymphocytes Percent Auto 14.3 % (25-40); Mean Corpuscular HGB Conc 33.3 % (30-36); Mean Corpuscular Hemoglobin 31.6 PG (26-34); Mean Corpuscular Volume 94.9 fL (80-100); Monocytes Absolute Auto 500 /uL (0-900); Monocytes Percent Auto 6.3 % (3-14); Neutrophils Absolute Auto 5700 /uL (1500-7000); Neutrophils Percent Auto 78.7 % (50-75); Platelet Count 142 X10^3/uL (150-400); Red Blood Cell Count 4.12 X10^6/uL (4.5-5.9); Red Cell Distribution Width 14.9 % (11.6-14.8); White Blood Cell Count 7.2 X10^3/uL (4.5-11.0)
[2024-08-26 10:06] LABS: Alanine Aminotransferase 18 IU/L (<50); Albumin Globulin Ratio 1.6 (1.0-2.8); Alkaline Phosphatase 46 U/L (38-126); Aspartate Aminotransferase 40 IU/L (17-59); BUN Creatinine Ratio 15.1 (6-22); Bilirubin Total 0.7 mg/dL (0.2-1.3); Blood Urea Nitrogen 11 mg/dL (9-20); Calcium 8.6 mg/dL (8.4-10.2); Carbon Dioxide 24 mmol/L (22-32); Chloride 104 mmol/L (98-107); Creatine Kinase 60 U/L (55-170); Estimated Glomerular Filt Rate > 60 mL/min (>60); Globulin 2.5 g/dL (1.7-4.1); Glucose 115 mg/dL (80-110); HEMOLYSIS 30 (0-50); Lipase 79 U/L (23-300); Potassium 3.6 mmol/L (3.4-5.1); Sodium 134 mmol/L (137-145); Total Protein 6.5 g/dL (6.3-8.2)
[2024-08-26 10:17] LABS: Troponin I < 0.012 ng/mL (0.01-0.034)
[2024-08-26 11:47] LABS: Urine Volume 10mL (spun)
[2024-08-26 11:48] LABS: Bacteria Urine Moderate (10-30); Culture Indicated Urine Specimen Cultured; RBC Urine 10-30/HPF (0-5/HPF); Squamous Epithelial Cell Urine 0-1 /HPF (0-5/HPF); WBC Urine 10-30/HPF (0-5/HPF)
== END 2024-08-26 11:31 | disposition home or self-care (01) ==
PROVIDERS: Emergency Provider Student in an Organized Health Care Education/Training Program; Family Provider Family Medicine; PCP Internal Medicine
DX: T83.028A Displacement of other urinary catheter, initial encounter (principal); R53.1 Weakness; R00.1 Bradycardia, unspecified; Y73.1 Therapeutic (nonsurgical) and rehabilitative gastroenterology and urology devices associated with adverse incidents
CPT/HCPCS: 51702; 71045; 80053; 81003; 81015; 82550; 83690; 83735; 84484; 85025; 87077; 87086; 87186; 93005; 99283; 99284

== ENCOUNTER → 2024-09-18 11:10 | Outpatient (CLI) | payer MEDICARE, SELFPAY ==
--- NOTE | 2024-09-18 11:11 | DI.CT.S_ITS ---
PROCEDURE: CT ABDOMEN RENAL PROTOCOL INDICATIONS: Follow-up left renal lesion/complex cyst TECHNIQUE: Optional 5 mm thick noncontrast images acquired from the diaphragm to the iliac crests. After the administration of intravenous contrast, 5 mm thick images again acquired from the diaphragm to the iliac crests in the arterial and urographic phases. 5 mm thick coronal and sagittal reformats were then acquired. For radiation dose reduction, the following was used: automated exposure control, adjustment of mA and/or kV according to patient size. COMPARISON: [facility], CT, CT ABDOMEN RENAL PROTOCOL, 05/02/2024, 10:48. FINDINGS: Image quality: Diagnostic. Kidneys and Ureters: No hydronephrosis. No kidney stones. Left kidney superior pole solid and cystic lesion measuring 2.1 x 1.4 cm, (), previously 2.2 x 1.3 cm on 05/02/2024, previously 2.7 x 1.6 cm on 04/02/2024. OTHER: Lower chest: Small pericardial effusion. No pleural effusion. Liver: No solid mass. Cyst in the liver. Gallbladder: No radiopaque gallstones or wall thickening. Biliary ducts: No biliary dilation. Pancreas: No ductal dilation. Small cyst in the tail the pancreas measuring 0.8 cm, (5/35). Spleen: Size is within normal limits. Adrenal Glands: No adrenal nodules. Stomach and Bowel: No dilated loops of bowel seen. Stomach is within normal limits. Peritoneum: No abnormal intraperitoneal fluid. No free air. Ventral Wall: No hernia. Abdominal Nodes: No retroperitoneal or mesenteric adenopathy by size criteria. Vessels: Aorta and inferior vena cava are normal in size. Atherosclerotic plaque. Bones: No aggressive osseous abnormality. IMPRESSION: 1. Left kidney superior pole solid and cystic lesion measuring 2.1 cm is not significantly changed. Concerning for RCC or other indolent neoplasm. 2. No adenopathy. 3. Small cyst in the tail the pancreas measuring 0.8 cm. Dictated by: Wyatt Tolbert M.D. on 09/18/2024 at 15:42 Approved by: Wyatt Tolbert M.D. on 09/18/2024 at 15:55
== END ==
PROVIDERS: Family Provider Family Medicine; PCP Internal Medicine; Referring Provider Urology; Visit Provider Urology
DX: N28.1 Cyst of kidney, acquired (principal); K86.2 Cyst of pancreas; N28.9 Disorder of kidney and ureter, unspecified; I31.39 Other pericardial effusion (noninflammatory); K76.89 Other specified diseases of liver
CPT/HCPCS: 74170; Q9967

== ENCOUNTER 2024-09-22 20:09 | Emergency (ER) | payer MEDICARE, SELFPAY ==
[2024-09-22] VITALS (9 sets, daily range): BP systolic 121–148; BP diastolic 54–66; PULSE 45–61; RESP 15–28; TEMP 36.4; O2SAT 96–100; BMI 19.6
--- NOTE | 2024-09-22 20:19 | EKG_ITS ---
[address] [address] Test Date: 2024-09-22 Pat Name: Carmelo Mejias Department: [facility] Room: Gender: Male Admissions Advisor: TAYA BOSTON : 1940 Requested By: Order Number: [id number] Reading MD: Aramis Tejada Measurements Intervals Branch Rate: 53 P: 68 AL: 128 QRS: 53 QRSD: 82 T: 73 QT: 448 QTc: 420 Interpretive Statements Sinus bradycardia with frequent premature ventricular complexes Electronically Signed On 09-25-2024 11:11:53 PST by Aramis Tejada
--- NOTE | 2024-09-22 20:34 | EKG_ITS ---
[facility] [address] [place] [address] Test Date: 2024-09-22 Pat Name: Carmelo Mejias Department: [facility] Room: Gender: Male Chef German: TAYA BOSTON : 1940 Requested By: Order Number: [id number] Reading MD: Aramis Tejada Measurements Intervals [place] Rate: 57 P: 68 SC: 126 QRS: 56 QRSD: 88 T: 86 QT: 466 QTc: 453 Interpretive Statements Sinus bradycardia with frequent premature ventricular complexes Nonspecific ST and T wave abnormality Electronically Signed On 09-25-2024 11:12:00 PST by Aramis Tejada
[2024-09-22 20:53] LABS: Add Manual Diff / Slide Review NO; Basophils Absolute Auto 0 /uL (0-100); Basophils Percent Auto 0.8 % (0-2); Eosinophils Absolute Auto 100 /uL (0-450); Eosinophils Percent Auto 2.1 % (2-4); Hemoglobin 11.7 g/dL (13.5-17.5); Lymphocytes Absolute Auto 1500 /uL (1100-4500); Lymphocytes Percent Auto 35.8 % (25-40); Mean Corpuscular HGB Conc 34.4 % (30-36); Mean Corpuscular Hemoglobin 32.5 PG (26-34); Mean Corpuscular Volume 94.4 fL (80-100); Monocytes Absolute Auto 500 /uL (0-900); Monocytes Percent Auto 11.5 % (3-14); Neutrophils Absolute Auto 2100 /uL (1500-7000); Neutrophils Percent Auto 49.8 % (50-75); Platelet Count 129 X10^3/uL (150-400); Red Blood Cell Count 3.61 X10^6/uL (4.5-5.9); White Blood Cell Count 4.3 X10^3/uL (4.5-11.0)
[2024-09-22 20:57] LABS: INR 1.1 (0.9-1.3); Prothrombin Time 12.2 SECONDS (9.4-12.5)
[2024-09-22 21:00] LABS: PTT Partial Thromboplastin Tim 35 SECONDS (25.1-36.5)
[2024-09-22 21:01] LABS: Alanine Aminotransferase 19 IU/L (<50); Albumin 3.5 g/dL (3.5-5.0); Albumin Globulin Ratio 1.4 (1.0-2.8); Alkaline Phosphatase 40 U/L (38-126); Aspartate Aminotransferase 22 IU/L (17-59); BUN Creatinine Ratio 20.8 (6-22); Bilirubin Total 0.4 mg/dL (0.2-1.3); Blood Urea Nitrogen 15 mg/dL (9-20); Calcium 8.5 mg/dL (8.4-10.2); Carbon Dioxide 25 mmol/L (22-32); Chloride 107 mmol/L (98-107); Estimated Glomerular Filt Rate > 60 mL/min (>60); Globulin 2.5 g/dL (1.7-4.1); Glucose 93 mg/dL (80-110); HEMOLYSIS < 15 (0-50); Sodium 132 mmol/L (137-145)
--- NOTE | 2024-09-22 21:06 | PC.NURSE ---
Changed pts leg bag to obtain a clean urine sample.
--- NOTE | 2024-09-22 21:14 | ED.GIBLEED ---
HPI - GI Bleed General Chief complaint: GI Bleed Stated complaint: Poss Blood in Stool Time Seen by Provider: 09/22/24 20:18 Source: patient and family Mode of arrival: Ambulatory History of Present Illness HPI Narrative: 84yoM presents for possible blood in stool. patient states that he was having a normal daily bowel movement but noticed that it was red in appearance. Granddaughter states that the bowel movement looked like beets. This has never happened before. Patient denies abdominal pain, blood thinner use, history of rectal bleeding. States that his last colonoscopy was approximately 10-15 years ago, reportedly normal. Family states that patient was scheduled to go out of the country for several weeks on 10/01 and they want to make sure he will be OK to travel. Related Data Previous Rx's Medication Instructions Recorded finasteride 5 mg tablet 5 mg PO DAILY #30 tabs 05/26/24 tamsulosin 0.4 mg capsule 0.8 mg (2 x 0.4 mg) PO DAILY #60 05/26/24 caps citalopram 20 mg tablet 20 mg PO DAILY #90 tabs 08/11/24 ciprofloxacin HCl 500 mg tablet 500 mg PO BID #20 tabs 08/29/24 (Cipro) Allergies Allergy/AdvReac Type Severity Reaction Status Date / Time No Known Drug Allergies Allergy Verified 08/07/24 11:05 Patient History Medical History Urinary tract infection Urinary retention Durant catheter in place Obstructive uropathy Complex renal cyst Dementia Acquired hypothyroidism Surgical History Anesthesia History of hernia repair Family History Father Cancer Mother Bronchitis Social History Smoking Status: Never smoker alcohol intake: never caffeine: Yes Smoking Status: Never smoker Exam Initial Vital Signs Initial Vital Signs: Vital Signs Temperature 97.5 F L 09/22/24 20:14 Pulse Rate 55 L 09/22/24 20:14 Respiratory Rate 16 09/22/24 20:14 Blood Pressure 121/54 L 09/22/24 20:14 Pulse Oximetry 96 09/22/24 20:14 Oxygen Delivery Method Room Air 09/22/24 20:14 Const: Awake, alert, frail, nontoxic appearing Cardiac: bradycardia, regular rhythm RESP: unlabored, clear bilaterally, no wheezing GI: Soft, nontender, nondistended Rectal: [employer] present, no gross blood, no hemorrhoids, no blood or stool in rectal vault Skin: Warm, Dry, intact, no rashes Neuro: AO x3, CN II-XII grossly intact, moves all extremities Course Orders Ordered: ED Orders 09/22/24 20:19 EKG-12 Lead Stat 09/22/24 20:34 EKG-12 Lead Routine 09/22/24 20:40 Complete Blood Count AUTO DIFF Stat Comprehensive Metabolic Panel Stat PTT Partial Thromboplastin Rene Stat Prothrombin Time INR Stat Discontinued Medications Ondansetron HCl (Ondansetron 4 Mg/2 Ml Inj) 4 mg IV NOW PRN PRN Reason: Nausea And Vomiting Ondansetron HCl (Ondansetron 4 Mg Odt) 4 mg SL NOW PRN PRN Reason: Nausea And Vomiting Pantoprazole Sodium (Pantoprazole 40 Mg Vial) 80 mg IV NOW ONE Stop: 09/22/24 20:20 Last Admin: 09/22/24 21:21 Dose: Not Given Documented By: RAMONITA Vital Signs Vital signs: Vital Signs - 8 hr 09/22/24 20:14 09/22/24 20:24 09/22/24 20:26 Temperature 97.5 F L Pulse Rate 55 L 61 50 L Respiratory Rate 16 16 Blood Pressure 121/54 L Pulse Oximetry 96 99 100 Oxygen Delivery Method Room Air 09/22/24 20:26 09/22/24 20:30 09/22/24 20:31 Temperature Pulse Rate 51 L 50 L Respiratory Rate 22 19 Blood Pressure 148/62 H Pulse Oximetry 99 99 Oxygen Delivery Method 09/22/24 20:31 09/22/24 21:00 09/22/24 21:01 Temperature Pulse Rate 48 L Respiratory Rate 19 Blood Pressure 141/66 H 134/61 Pulse Oximetry 99 Oxygen Delivery Method 09/22/24 21:01 09/22/24 21:30 09/22/24 21:31 Temperature Pulse Rate 45 L 46 L 46 L Respiratory Rate 15 28 H 28 H Blood Pressure Pulse Oximetry 99 99 99 Oxygen Delivery Method 09/22/24 21:31 Temperature Pulse Rate Respiratory Rate Blood Pressure 132/63 Pulse Oximetry Oxygen Delivery Method MDM - GI Bleed Differential Diagnosis Differential diagnosis: Likely hemorrhoids, gastritis and hematochezia Lab Data 09/22/24 20:40 09/22/24 20:40 Labs: Lab Results 09/22/24 Range/Units 20:40 WBC 4.3 L (4.5-11.0) X10^3/uL RBC 3.61 L (4.5-5.9) X10^6/uL Hgb 11.7 L (13.5-17.5) g/dL Hct 34.0 L (41-53) % MCV 94.4 (80-100) fL MCH 32.5 (26-34) PG MCHC 34.4 (30-36) % RDW 15.0 H (11.6-14.8) % Plt Count 129 L (150-400) X10^3/uL Neut % (Auto) 49.8 L (50-75) % Lymph % (Auto) 35.8 (25-40) % Real % (Auto) 11.5 (3-14) % Eos % (Auto) 2.1 (2-4) % Baso % (Auto) 0.8 (0-2) % Neut # (Auto) 2100 (2779-1742) /uL Lymph # (Auto) 1500 (9827-3951) /uL Real # (Auto) 500 (0-900) /uL Eos # (Auto) 100 (0-450) /uL Baso # (Auto) 0 (0-100) /uL PT 12.2 (9.4-12.5) SECONDS INR 1.1 (0.9-1.3) APTT 35 (25.1-36.5) SECONDS Sodium 132 L (137-145) mmol/L Potassium 4.0 (3.4-5.1) mmol/L Chloride 107 (98-107) mmol/L Carbon Dioxide 25 (22-32) mmol/L BUN 15 (9-20) mg/dL Creatinine 0.72 (0.66-1.25) mg/dL Estimated GFR > 60 (>60) mL/min BUN/Creatinine Ratio 20.8 (6-22) Glucose 93 (80-110) mg/dL Calcium 8.5 (8.4-10.2) mg/dL Total Bilirubin 0.4 (0.2-1.3) mg/dL AST 22 (17-59) IU/L ALT 19 (<50) IU/L Alkaline Phosphatase 40 (38-126) U/L Total Protein 6.0 L (6.3-8.2) g/dL Albumin 3.5 (3.5-5.0) g/dL Globulin 2.5 (1.7-4.1) g/dL Albumin/Globulin Ratio 1.4 (1.0-2.8) Point of Care Testing Stool Occult Blood Negative MDM Narrative Medical decision making narrative: 84-year-old male with possible blood in his stool earlier today. Abdomen soft, nontender, no gross blood or blood on rectal exam. No blood thinner use either. Laboratory work shows WBC count 4.3, hemoglobin 11.7, platelet count 129, sodium 132, potassium 4.0, creatinine 0.72, normal liver enzymes. Patient has chronic, stable thrombocytopenia. Baseline hemoglobin 12-13. No further episodes of bleeding noted in the ED. patient and granddaughter at bedside counseled that if patient has recurrence of symptoms then they should come back for repeat blood testing, however at this time there was no signs of bleeding. Stool color may be related to diet or other unknown cause, however there was no evidence of active GI bleed at this time. Discharge Plan Departure Patient Disposition: Home Clinical Impression: Abnormal stool color Instructions: Gastrointestinal Bleeding Activity Restrictions/Additional Instructions: Your hemoglobin today is stable. Your other blood work is at baseline. I do not see any signs of bleeding on your rectal exam. Keep an eye on the color and consistency of your bowel movements. If you continued to have red stools and/or have abdominal pains then I recommend coming back for repeat blood testing. Prescriptions: No Action citalopram 20 mg tablet 20 mg PO DAILY Qty: 90 3RF ciprofloxacin HCl [Cipro] 500 mg tablet 500 mg PO BID Qty: 20 0RF tamsulosin 0.4 mg capsule 0.8 mg PO DAILY Qty: 60 12RF finasteride 5 mg tablet 5 mg PO DAILY Qty: 30 12RF Referrals: Estuardo Hinton MD [Primary Care Provider] - Stand Alone Forms: Patient Portal/API/Survey
== END 2024-09-22 22:20 | disposition home or self-care (01) ==
PROVIDERS: Emergency Provider Emergency Medicine; Family Provider Family Medicine; PCP Internal Medicine
DX: R19.5 Other fecal abnormalities (principal)
CPT/HCPCS: 36415; 80053; 82272; 85025; 85610; 85730; 93005; 99283; 99284

== ENCOUNTER → 2024-09-25 12:16 | Outpatient (CLI) | payer MEDICARE, SELFPAY | PROVIDERS: Family Provider Family Medicine; PCP Internal Medicine; Visit Provider Urology | DX: N39.0 Urinary tract infection, site not specified (principal) | CPT/HCPCS: 87077; 87086; 87186 ==

== ENCOUNTER → 2024-10-23 11:42 | Outpatient (CLI) | payer MEDICARE, SELFPAY | PROVIDERS: Family Provider Family Medicine; PCP Internal Medicine; Visit Provider Urology | DX: N39.0 Urinary tract infection, site not specified (principal); R33.9 Retention of urine, unspecified; Z97.8 Presence of other specified devices | CPT/HCPCS: 51702; 87077; 87086; 87186 ==

== ENCOUNTER 2024-11-18 10:26 | Emergency (ER) | payer MEDICARE, SELFPAY ==
[2024-11-18 10:37] VITALS: BP 128/61; PULSE 52; RESP 16; TEMP 36.6; O2SAT 97; BMI 20.3
--- NOTE | 2024-11-18 11:01 | PC.NURSE ---
Pt arrives with granddaughter with reports of catheter not draining. pt has chronic indwelling cath and uses Dr Mohamud. Carleen due to be changed in 2 days. Noted to have a 14F coude at this time. denies pain. Indwelling removed without issue. New 14F coude inserted without complication with Glydo jelly. draining clear yellow urine with foul order. sample obtained. connected to leg bag and attached to existing velco leg bag leigh.
--- NOTE | 2024-11-18 12:03 | ED_ITS ---
HPI - Male Genitourinary <Ada Salcedo PA-C - Last Filed: 11/18/24 13:13> General Chief complaint: Urogenital-Male Stated complaint: full bladder, cath not draining Time Seen by Provider: 11/18/24 12:02 History of Present Illness HPI Narrative: This is an 84-year-old male with chronic indwelling catheter, BPH with urinary obstruction/LUTS and obstructive uropathy who came into the ER today with concern for significantly reduced flow from his catheter since last night and some pelvic discomfort and pressure patient denies any other symptoms or concerns states he has been in his usual state of health he has not had fevers has not noted blood in his urine he does state that he was due to have his catheter replaced in 2 days' time but felt that he could not wait due to his symptoms and came into the ER today. Related Data Previous Rx's Medication Instructions Recorded citalopram 20 mg tablet 20 mg PO DAILY #90 tabs 08/11/24 finasteride 5 mg tablet 5 mg PO DAILY #90 tabs 10/23/24 tamsulosin 0.4 mg capsule 0.8 mg (2 x 0.4 mg) PO DAILY #180 10/23/24 caps nitrofurantoin 100 mg PO BID #20 caps 10/27/24 monohydrate/macrocrystals 100 mg capsule Allergies Allergy/AdvReac Type Severity Reaction Status Date / Time No Known Drug Allergies Allergy Verified 08/07/24 11:05 Review of Systems <Ada Salcedo PA-C - Last Filed: 11/18/24 13:13> Review of Systems Narrative: See HPI Patient History <Ada Salcedo PA-C - Last Filed: 11/18/24 13:13> Medical History Urinary tract infection Urinary retention Garcia catheter in place Obstructive uropathy Complex renal cyst Dementia Acquired hypothyroidism Surgical History Anesthesia History of hernia repair Family History Father Cancer Mother Bronchitis Social History Smoking Status: Never smoker alcohol intake: never caffeine: Yes Smoking Status: Never smoker Exam <Ada Salcedo PA-C - Last Filed: 11/18/24 13:13> Narrative Exam Narrative: GENERAL: [84] year old patient appears stated age. Well-developed patient, in mild distress. Generally well-appearing HEAD: Atraumatic. Normocephalic. EYES: Pupils equal round and reactive. Extraocular motions intact. No scleral icterus. No injection or drainage. ENT: Nose without bleeding, purulent drainage. Airway patent. NECK: Trachea midline. Non tender CARDIOVASCULAR: Regular rate and rhythm without murmurs, gallops, or rubs. RESPIRATORY: Clear to auscultation. Breath sounds equal bilaterally. No wheezes, rales, or rhonchi. GASTROINTESTINAL: Abdomen soft, non-tender, nondistended, there is no suprapubic tenderness (after garcia removed and new Garcia placed by RN). There is no CVA tenderness EXTREMITIES: No edema moving all extremities. BACK: Nontender without deformity or crepitance. No flank tenderness. No CVA tenderness NEURO: AOx3. SKIN: No rash or erythema of visible areas Initial Vital Signs Initial Vital Signs: Vital Signs Temperature 97.8 F 11/18/24 10:37 Pulse Rate 52 L 11/18/24 10:37 Respiratory Rate 16 11/18/24 10:37 Blood Pressure 128/61 11/18/24 10:37 Pulse Oximetry 97 11/18/24 10:37 Oxygen Delivery Method Room Air 11/18/24 10:37 <Ana Dewey DO - Last Filed: 11/18/24 16:27> Initial Vital Signs Initial Vital Signs: Vital Signs Temperature 97.8 F 11/18/24 10:37 Pulse Rate 52 L 11/18/24 10:37 Respiratory Rate 16 11/18/24 10:37 Blood Pressure 128/61 11/18/24 10:37 Pulse Oximetry 97 11/18/24 10:37 Oxygen Delivery Method Room Air 11/18/24 10:37 Course <Ada Salcedo PA-C - Last Filed: 11/18/24 13:13> Vital Signs Vital signs: Vital Signs - 8 hr 11/18/24 10:37 11/18/24 12:26 Temperature 97.8 F Pulse Rate 52 L Respiratory Rate 16 Blood Pressure 128/61 148/71 H Pulse Oximetry 97 Oxygen Delivery Method Room Air <Ana DeweyDO - Last Filed: 11/18/24 16:27> Vital Signs Vital signs: Vital Signs - 8 hr 11/18/24 10:37 11/18/24 12:26 Temperature 97.8 F Pulse Rate 52 L Respiratory Rate 16 Blood Pressure 128/61 148/71 H Pulse Oximetry 97 Oxygen Delivery Method Room Air MDM - Male Genitourinary <Ada Salcedo PA-C - Last Filed: 11/18/24 13:13> Differential Diagnosis Differential diagnosis: Likely acute retention of urine and other (Garcia catheter problem) Medical Records Attestation: I reviewed the patient's medical records. [facility] Narrative Medical decision making narrative: This is a well-appearing 84-year-old patient with a history of BPH with LUTS, chronic indwelling Garcia catheter who presents today with concern for pelvic pressure and pain since last night and reduced output from his Garcia catheter. Was due to have it replaced in 2 days' time. Patient was initially evaluated by RN who replaced Garcia catheter and had excellent drainage. Bladder scan was not performed prior to replacing the catheter. Catheter was replaced without difficulty and patient endorsed improvement in his pelvic discomfort after the catheter was replaced and urine was drained. Patient did have cloudy appearing urine however given chronic indwelling catheter I feel likely to be contaminated. He has no signs or symptoms suggestive of a UTI and his catheter urine was not tested today. Given relief of pelvic discomfort with replacement of the catheter I suspect that this was due to some retention of urine and bladder pressure. He has no flank tenderness and vital signs are unremarkable states he has otherwise been in his usual state of health. Advised to follow up closely with PCP and urologist. Return precautions provided, follow-up plan discussed, all questions answered. Discharge Plan Departure Patient Disposition: Home Clinical Impression: Urinary retention, Garcia catheter in place Activity Restrictions/Additional Instructions: *You have been diagnosed with [urinary retention, Garcia catheter in place] *What to do: *Please continue to take your regular medications as directed. [ ] New medication prescriptions sent to your pharmacy: [ ] [ ] New medication written as a paper prescription [X ] No new medications given *Please follow up with your primary care provider in 2-3 days, call for an appointment. Let them know you were seen in the Emergency Department and that we ask that you be seen in follow up. We will electronically transmit a record of today's note if your PCP is in our system. You came into the ER today as you felt he could not wait to have her catheter changed until Wednesday when you had this scheduled. And were having some pelvic discomfort last night and felt that your catheter was not draining very well. The nurse today removed your Garcia catheter and placed a new 1 without difficulty and did get good return and this also resolved your pelvic discomfort. I would recommend that you follow up very closely with your urologist and PCP. Please monitor carefully for any symptoms of urinary tract infection such as fevers chills pelvic or flank pain or other symptoms of concern. *If you do not have a primary care provider please contact the [facility] Resource line at [phone]. They will ask some questions about your medical history and help get you set up with a doctor in the community. *Return to Emergency Department if you should have any new, worsening or concerning symptoms, such as [fever greater than 101 F, shaking chills, worsening pain, persistent vomiting or other bothersome symptoms] Prescriptions: No Action citalopram 20 mg tablet 20 mg PO DAILY Qty: 90 3RF nitrofurantoin monohyd/m-cryst 100 mg capsule 100 mg PO BID Qty: 20 0RF Rx Instructions: must administer with a meal/food finasteride 5 mg tablet 5 mg PO DAILY Qty: 90 3RF tamsulosin 0.4 mg capsule 0.8 mg PO DAILY Qty: 180 3RF Referrals: Estuardo Hinton MD [Primary Care Provider] - Stand Alone Forms: Patient Portal/API/Survey ED Sign-out <Ana Dewey, - Last Filed: 11/18/24 16:27> Cosign ED Attending Ever Attestation: I was available for consultation.
[2024-11-18 12:26] VITALS: BP 148/71
== END 2024-11-18 12:26 | disposition home or self-care (01) ==
PROVIDERS: Emergency Provider Student in an Organized Health Care Education/Training Program; Family Provider Family Medicine; PCP Internal Medicine
DX: R33.8 Other retention of urine (principal); Z97.8 Presence of other specified devices
CPT/HCPCS: 99283

== ENCOUNTER → 2024-11-20 11:19 | Outpatient (CLI) | payer MEDICARE, SELFPAY | PROVIDERS: Family Provider Family Medicine; PCP Internal Medicine; Visit Provider Urology | DX: N39.0 Urinary tract infection, site not specified (principal) | CPT/HCPCS: 81002; 87077; 87086; 87186 ==

== ENCOUNTER → 2024-12-04 15:31 | Outpatient (CLI) | payer MEDICARE, SELFPAY | PROVIDERS: Family Provider Family Medicine; PCP Internal Medicine; Referring Provider Internal Medicine; Visit Provider Internal Medicine | DX: R00.1 Bradycardia, unspecified (principal) | CPT/HCPCS: 93242; 93244 ==

== ENCOUNTER → 2024-12-18 11:23 | Outpatient (CLI) | payer MEDICARE, SELFPAY | PROVIDERS: Family Provider Family Medicine; PCP Internal Medicine; Visit Provider Urology | DX: R33.9 Retention of urine, unspecified (principal); Z97.8 Presence of other specified devices | CPT/HCPCS: 87086 ==

== ENCOUNTER → 2025-01-02 11:26 | Outpatient (ROUT) | payer MEDICARE, SELFPAY ==
[2025-01-02 11:35] LABS: Appearance Urine UA SL CLOUDY; Bilirubin Urine UA NEGATIVE (NEGATIVE); Color Urine UA YELLOW; Glucose Urine UA NEGATIVE (Negative); Ketones Urine UA NEGATIVE (NEGATIVE); Leukocyte Esterase Urine UA 3+ (NEGATIVE); Nitrite Urine UA NEGATIVE (Negative); Occult Blood Urine UA 2+ (Negative); Protein Urine UA 2+ (Negative); Urobilinogen Urine UA 0.2 E.U./dL (0.2)
[2025-01-02 11:52] LABS: Amorphous Sediment Urine 1+; Bacteria Urine Moderate (10-30); Culture Indicated Urine Specimen Cultured; RBC Urine 5-10/HPF (0-5/HPF); Squamous Epithelial Cell Urine 0-1 /HPF (0-5/HPF); Urine Volume 10mL (spun); WBC Urine 30-100/HPF (0-5/HPF)
== END ==
PROVIDERS: Family Provider Family Medicine; PCP Internal Medicine; Visit Provider Registered Nurse
DX: N39.0 Urinary tract infection, site not specified (principal)
CPT/HCPCS: 81001; 87077; 87086; 87186

== ENCOUNTER 2025-01-15 00:34 | Inpatient (IN) | payer MEDICARE, SELFPAY ==
[2025-01-15] VITALS (26 sets, daily range): BP systolic 102–136; BP diastolic 40–90; PULSE 40–83; RESP 11–32; TEMP 36.2–37.2; O2SAT 90–99; BMI 21.4; BMI 20.8
--- NOTE | 2025-01-15 | DI.RAD.S_ITS ---
PROCEDURE: XR PELVIS 1-2V INDICATIONS: R HIP INTRA OP TECHNIQUE: Intra-operative view of the pelvis and hip acquired. COMPARISON: [facility], CR, XR HIP W PEL IF DONE RT 2V, 01/15/2025, 1:02. FINDINGS: Bones: Intraoperative devices prior to placement of arthroplasty prostheses are in expected positions. No acute fractures or suspicious bony lesions. Soft tissues: Overlying surgical retractors are present, along with other intraoperative changes. IMPRESSION: Expected intraoperative appearance of the right hip arthroplasty. Approved by: Yared Wood M.D. on 01/15/2025 at 21:10
--- NOTE | 2025-01-15 | DI.RAD.S_ITS ---
PROCEDURE: XR HIP W PEL IF DONE RT 2V INDICATIONS: Post Op TECHNIQUE: AP pelvis and lateral view of the hip acquired. COMPARISON: [facility], CR, XR HIP W PEL IF DONE RT 2V, 01/15/2025, 1:02. FINDINGS: Bones: Patient is status post right hip hemiarthroplasty, with hardware components in expected positions. The hip joint appears congruent. The visualized bony structures appear intact. Soft tissues: Overlying postoperative changes are noted. No suspicious soft tissue densities. IMPRESSION: Expected post-operative appearance of a right hip hemiarthroplasty. Approved by: Yared Wood M.D. on 01/15/2025 at 23:24
--- NOTE | 2025-01-15 01:04 | DI.RAD.S_ITS ---
PROCEDURE: XR HIP W PEL IF DONE RT 2V INDICATIONS: fall, pain TECHNIQUE: Three views of the right hip COMPARISON: None. FINDINGS: Diffuse osseous demineralization. Acute, mildly displaced and impacted right femoral subcapital neck fracture. No other acute fracture or dislocation. Mild right hip joint osteoarthritis. IMPRESSION: Acute, mildly displaced and impacted right femoral subcapital neck fracture. Dictated by: Erik Tate M.D. on 01/15/2025 at 1:42 Approved by: Erik Tate M.D. on 01/15/2025 at 1:44
--- NOTE | 2025-01-15 01:05 | EKG_ITS ---
[facility] [address] [place] [address] Test Date: 2025-01-15 Pat Name: Carmelo Mejias Department: [facility] Room: Gender: Male Dialysis Social Worker: : 1940 Requested By: Order Number: [id number] Reading MD: Estuardo Hinton MD Measurements Intervals Notrees Rate: 77 P: 56 WV: 106 QRS: 52 QRSD: 88 T: 83 QT: 440 QTc: 497 Interpretive Statements Sinus rhythm with short WV with frequent premature ventricular complexes in a pattern of bigeminy (Seen previously) Cannot rule out Anterior infarct , age undetermined NO SIGNIFICANT CHANGE FROM PRIOR TRACING Electronically Signed On 01-15-2025 7:29:25 PDT by Estuardo Hinton MD
--- NOTE | 2025-01-15 02:07 | ED.LOWEXIN ---
HPI - Extremity Injury (Lower) General Chief Complaint: Extremity Injury, Lower Stated Complaint: GLF with hip pain Time Seen by Provider: 01/15/25 01:04 Source: patient Mode of arrival: EMS History of Present Illness HPI Narrative: 84-year-old gentleman currently in assisted living, fell from bed this evening is complaining of right groin pain. Additional medical history includes dementia, BPH patient was not currently anticoagulated. Related Data Home Medications Medication Instructions Recorded Confirmed acetaminophen 650 mg PO PRN PRN pain/fever 01/15/25 01/15/25 ciprofloxacin HCl 500 mg tablet 500 mg PO BID 01/15/25 01/15/25 lorazepam 0.5 mg tablet (Ativan) 0.5 mg PO Q4HR PRN Agitation 01/15/25 01/15/25 magnesium hydroxide 400 mg/5 mL 400 mg PO PRN PRN Constipation 01/15/25 01/15/25 oral suspension (Milk of Magnesia) Previous Rx's Medication Instructions Recorded citalopram 20 mg tablet 20 mg PO DAILY #90 tabs 08/11/24 finasteride 5 mg tablet 5 mg PO DAILY #90 tabs 10/23/24 tamsulosin 0.4 mg capsule 0.8 mg (2 x 0.4 mg) PO DAILY #180 10/23/24 caps Allergies Allergy/AdvReac Type Severity Reaction Status Date / Time No Known Drug Allergies Allergy Verified 12/29/24 10:01 Patient History Medical History (Updated 01/15/25 @ 04:28 by Rayne Guardado MD) Urinary retention Durant catheter in place Obstructive uropathy Complex renal cyst Dementia Acquired hypothyroidism Surgical History Anesthesia History of hernia repair Family History Father Cancer Mother Bronchitis Social History Smoking Status: Never smoker alcohol intake: never caffeine: Yes Smoking Status: Never smoker Exam Initial Vital Signs Initial Vital Signs: Vital Signs Temperature 99.0 F 01/15/25 00:36 Pulse Rate 61 01/15/25 00:36 Respiratory Rate 16 01/15/25 00:36 Blood Pressure 113/57 L 01/15/25 00:36 Pulse Oximetry 99 01/15/25 00:36 Oxygen Delivery Method Room Air 01/15/25 00:36 General: Healthy appearing, in no acute distress. HEENT: Moist mucous membranes, normal sclera with reactive pupils, Respiratory: Lungs are clear to auscultation, no wheezing no rales no rhonchi. Full and symmetrical air movement Cardiac: Regular rate and rhythm no murmurs no bruits Abdomen: Soft, nontender, no rebound or guarding, no flank pain Skin: Warm and dry, no rashes Neurologic: Grossly neurologically intact with no obvious asymmetries or abnormalities Extremities: Right hip pain with no other pain or concerns to extremities Psych: Cooperative, slightly confused, fluent speech pattern Course Orders Ordered: ED Orders 01/15/25 00:56 EKG-12 Lead Stat 01/15/25 01:04 XR hip w pel if done RT 2V Stat UA Complete [Urinalysis and Microscopic] Stat 01/15/25 02:12 XR chest 1V Stat 01/15/25 02:17 Consult to General Surgery Stat 01/15/25 03:10 Complete Blood Count AUTO DIFF Stat Comprehensive Metabolic Panel Stat Acetaminophen (Acetaminophen 325 Mg Tablet) 650 mg PO Q6HR PRN PRN Reason: Fever/Mild Pain (1-3) Last Admin: 01/15/25 02:46 Dose: 650 mg Documented By: ANASTASIA Hydromorphone HCl (Hydromorphone 0.5 Mg Inj) 0.5 mg IV Q2H PRN PRN Reason: Pain, Severe (7-10) Last Admin: 01/15/25 03:24 Dose: 0.5 mg Documented By: ANASTASIA Sodium Chloride (Normal Saline 0.9%) 1,000 mls @ 125 mls/hr IV CONT VALERIA Last Admin: 01/15/25 02:45 Dose: 125 mls/hr Documented By: ANASTASIA Sodium Chloride (Sodium Chloride 0.9% Flush) 10 ml IV PRN PRN PRN Reason: Flush Discontinued Medications Hydromorphone HCl (Hydromorphone 0.5 Mg Inj) 0.5 mg IV NOW ONE Stop: 01/15/25 02:18 Last Admin: 01/15/25 02:45 Dose: 0.5 mg Documented By: ANASTASIA Vital Signs Vital signs: Vital Signs - 8 hr 01/15/25 00:36 01/15/25 00:44 01/15/25 00:45 Temperature 99.0 F Pulse Rate 61 64 Respiratory Rate 16 Blood Pressure 113/57 L 136/57 L Pulse Oximetry 99 98 Oxygen Delivery Method Room Air 01/15/25 01:00 01/15/25 01:00 01/15/25 01:30 Temperature Pulse Rate 72 68 Respiratory Rate 20 22 Blood Pressure 131/65 Pulse Oximetry 97 98 Oxygen Delivery Method 01/15/25 02:00 01/15/25 02:30 01/15/25 02:31 Temperature Pulse Rate 70 65 69 Respiratory Rate 29 H 23 32 H Blood Pressure Pulse Oximetry 98 97 97 Oxygen Delivery Method 01/15/25 02:31 Temperature Pulse Rate Respiratory Rate Blood Pressure 134/59 L Pulse Oximetry Oxygen Delivery Method MDM - Extremity Injury (Lower) Lab Data 01/15/25 03:10 01/15/25 03:10 Labs: Lab Results 01/15/25 Range/Units 01:04 Urine Color Yellow Urine Appearance Sl cloudy Urine pH 5.5 (4.5-8.0) Ur Specific [place] >=1.030 H (1.000-1.035) Urine Protein Negative (Negative) Urine Glucose (UA) Negative (Negative) g/dL Urine Ketones Trace H (NEGATIVE) Urine Occult Blood Negative (Negative) Urine Nitrate Negative (Negative) Urine Bilirubin Negative (NEGATIVE) Urine Urobilinogen 0.2 (0.2) E.U./dL Ur Leukocyte Esterase Negative (NEGATIVE) Urine RBC 0-1/hpf (0-5/HPF) Urine WBC 1-5/hpf (0-5/HPF) Ur Squamous Epith Cells 0-1 /hpf (0-5/HPF) Urine Bacteria Many (>30) H (None) Ur Culture Indicated? Cult not indicated Vol Urine Centrifuged 10ml (spun) MDM Narrative Medical decision making narrative: CC: Fall out of bed Complicating co-morbidities: Dementia, assisted care facility, indwelling Durant catheter for BPH Data collected from: patient, son Medical records reviewed: Dr. Hinton primary care notes reviewed Differential considered: Broken hip, broken pelvis, contusion, Exam documented above, pertinent findings include: Patient has pain in the right groin with right leg slightly internally rotated and foreshortened. No obvious bruising or contusion. Remainder of exam is benign Lab Test results independently reviewed as above. Pertinent findings: CBC shows improved anemia with H and H at 13.1 and 38.0. Chemistry show normal renal function, liver studies are unremarkable Urine collected from indwelling Durant catheter is cloudy, multiple bacteria but no leukocyte esterase. Do not suspect infection Independently reviewed EKG: Sinus rhythm with bigeminy. No ischemic changes Imaging studies independently reviewed: Hip x-ray shows acute mildly displaced and impacted right femoral subcapital neck fracture no other fractures appreciated Chest x-ray shows hyperinflation with no other acute abnormalities Consultations: Dr. Carmina Talbot, orthopedics we will consult tomorrow Treatments: IV Dilaudid for pain control Discussion: 84-year-old gentleman with right femoral neck fracture admitted to Dr. Bowie as his primary care physician is Dr. Hinton. Dr. Talbot will consult. Patient is aware of fracture need for admission, findings reviewed with son as well. Questions are answered he is safe for transfer to the floor. bridging orders are written. Discharge Plan Departure Patient Disposition: Admitted As Inpatient Clinical Impression: BPH loc w urin obs/LUTS Closed right hip fracture Qualifiers: Encounter type: initial encounter Qualified Code(s): S72.001A - Fracture of unspecified part of neck of right femur, initial encounter for closed fracture Dementia Qualifiers: Dementia type: Alzheimer's Admit Date/Time: 01/15/25 02:38 Admit Provider: Carmelo Bowie
--- NOTE | 2025-01-15 02:12 | DI.RAD.S_ITS ---
PROCEDURE: XR CHEST 1V INDICATIONS: pre op TECHNIQUE: One view of the chest was acquired. COMPARISON: [facility], CR, XR CHEST 1V, 08/26/2024, 9:51. FINDINGS: Surgical changes and devices: None. Lungs and pleura: Lungs are clear. No pleural effusions or pneumothorax. Mediastinum: Mediastinal contours appear normal. Heart size is normal. Bones and chest wall: No suspicious bony lesions. Overlying soft tissues appear unremarkable. IMPRESSION: No acute cardiopulmonary pathology. No discrepancies. Dictated by: Ander Toussaint M.D. on 01/15/2025 at 8:03 Approved by: Ander Toussaint M.D. on 01/15/2025 at 8:03
[2025-01-15] MEDS: SODIUM CHLORIDE 0.9% 1,000 ML 125 ML IV ×2 (02:45→10:56)
[2025-01-15] MEDS: HYDROMORPHONE 0.5 MG INJ IV ×4 (02:45→15:18)
[2025-01-15] MEDS: ACETAMINOPHEN 325 MG TABLET 650 MG PO (02:46)
--- NOTE | 2025-01-15 03:09 | PC.NURSE ---
Son/POA -- Flaco Mejias PH # [phone] Please contact son for consents/decision making. Call Son for updates, when going to OR or up to floor etc. Patient and have dementia so Benedicto Sam is POA/Point of contact/Will consent for any procedures needed. PCP Dr Hinton papers should be on file for poa from inge office visits
[2025-01-15 03:21] LABS: Add Manual Diff / Slide Review NO; Basophils Absolute Auto 0 /uL (0-100); Basophils Percent Auto 0.1 % (0-2); Eosinophils Absolute Auto 0 /uL (0-450); Eosinophils Percent Auto 0.1 % (2-4); Hemoglobin 13.1 g/dL (13.5-17.5); Lymphocytes Absolute Auto 700 /uL (1100-4500); Lymphocytes Percent Auto 7.1 % (25-40); Mean Corpuscular HGB Conc 34.3 % (30-36); Mean Corpuscular Hemoglobin 32.2 PG (26-34); Mean Corpuscular Volume 93.7 fL (80-100); Monocytes Absolute Auto 700 /uL (0-900); Monocytes Percent Auto 7.1 % (3-14); Neutrophils Absolute Auto 8400 /uL (1500-7000); Neutrophils Percent Auto 85.6 % (50-75); Platelet Count 120 X10^3/uL (150-400); Red Blood Cell Count 4.06 X10^6/uL (4.5-5.9); Red Cell Distribution Width 14.3 % (11.6-14.8); White Blood Cell Count 9.8 X10^3/uL (4.5-11.0)
[2025-01-15 03:25] LABS: Appearance Urine UA SL CLOUDY; Bilirubin Urine UA NEGATIVE (NEGATIVE); Color Urine UA YELLOW; Glucose Urine UA NEGATIVE (Negative); Ketones Urine UA TRACE (NEGATIVE); Leukocyte Esterase Urine UA NEGATIVE (NEGATIVE); Nitrite Urine UA NEGATIVE (Negative); Occult Blood Urine UA NEGATIVE (Negative); Protein Urine UA NEGATIVE (Negative); Specific Gravity Urine UA >=1.030 (1.000-1.035); Urobilinogen Urine UA 0.2 E.U./dL (0.2); pH Urine UA 5.5 (4.5-8.0)
[2025-01-15 03:27] LABS: Bacteria Urine Many (>30); RBC Urine 0-1/HPF (0-5/HPF); Urine Volume 10mL (spun); WBC Urine 1-5/HPF (0-5/HPF)
[2025-01-15 03:28] LABS: Culture Indicated Urine Cult Not Indicated; Squamous Epithelial Cell Urine 0-1 /HPF (0-5/HPF)
[2025-01-15 03:34] LABS: Alanine Aminotransferase 22 IU/L (<50); Albumin 3.9 g/dL (3.5-5.0); Albumin Globulin Ratio 1.7 (1.0-2.8); Alkaline Phosphatase 42 U/L (38-126); Aspartate Aminotransferase 27 IU/L (17-59); BUN Creatinine Ratio 29.3 (6-22); Bilirubin Total 0.4 mg/dL (0.2-1.3); Blood Urea Nitrogen 22 mg/dL (9-20); Calcium 8.3 mg/dL (8.4-10.2); Carbon Dioxide 23 mmol/L (22-32); Chloride 106 mmol/L (98-107); Estimated Glomerular Filt Rate > 60 mL/min (>60); Globulin 2.3 g/dL (1.7-4.1); Glucose 128 mg/dL (80-110); HEMOLYSIS < 15 (0-50); Potassium 3.8 mmol/L (3.4-5.1); Sodium 136 mmol/L (137-145); Total Protein 6.2 g/dL (6.3-8.2)
--- NOTE | 2025-01-15 07:49 | P.HP_ITS ---
History of Present Illness History of Present Illness Date Patient Seen: 01/15/25 Time Patient Seen: 07:49 Chief complaint: GLF with hip pain Narrative: 84-year-old male with worsening dementia who somewhat recently was placed in assisted living because of his ongoing cognitive issues apparently fell from bed and complained immediately of right-sided hip/groin pain. He was transported to [facility] where right-sided hip fracture was identified on imaging and he was admitted for surgical repair Past history includes the dementia, hypothyroidism (in the past not currently requiring thyroid replacement therapy) and lower urinary tract symptoms due to BPH, and has a required chronic catheterization due to bladder outlet obstructive issues, followed by Urology at [facility] Medical History Urinary retention Durant catheter in place Obstructive uropathy Complex renal cyst Dementia Acquired hypothyroidism Surgical History Anesthesia History of hernia repair Family History Father Cancer Mother Bronchitis Social History Smoking Status: Never smoker alcohol intake: never caffeine: Yes Meds Home Medications and Allergies Home Medications Medication Instructions Recorded Confirmed Type citalopram 20 mg tablet 20 mg PO DAILY #90 tabs 08/11/24 01/15/25 Rx finasteride 5 mg tablet 5 mg PO DAILY #90 tabs 10/23/24 01/15/25 Rx tamsulosin 0.4 mg capsule 0.8 mg (2 x 0.4 mg) PO DAILY #180 10/23/24 01/15/25 Rx caps acetaminophen 650 mg PO PRN PRN pain/fever 01/15/25 01/15/25 History ciprofloxacin HCl 500 mg tablet 500 mg PO BID 01/15/25 01/15/25 History lorazepam 0.5 mg tablet (Ativan) 0.5 mg PO Q4HR PRN Agitation 01/15/25 01/15/25 History magnesium hydroxide 400 mg/5 mL 400 mg PO PRN PRN Constipation 01/15/25 01/15/25 History oral suspension (Milk of Magnesia) Allergies Allergy/AdvReac Type Severity Reaction Status Date / Time No Known Drug Allergies Allergy Verified 12/29/24 10:01 Exam Vital Signs (past 8 hours): - 01/15/25 00:36 01/15/25 00:44 01/15/25 00:45 Temperature 99.0 F Pulse Rate 61 64 Respiratory Rate 16 Blood Pressure 113/57 L 136/57 L Pulse Oximetry 99 98 Oxygen Delivery Method Room Air 01/15/25 01:00 01/15/25 01:00 01/15/25 01:30 Temperature Pulse Rate 72 68 Respiratory Rate 20 22 Blood Pressure 131/65 Pulse Oximetry 97 98 Oxygen Delivery Method 01/15/25 02:00 01/15/25 02:30 01/15/25 02:31 Temperature Pulse Rate 70 65 69 Respiratory Rate 29 H 23 32 H Blood Pressure Pulse Oximetry 98 97 97 Oxygen Delivery Method 01/15/25 02:31 01/15/25 03:00 01/15/25 03:04 Temperature Pulse Rate 64 Respiratory Rate 22 Blood Pressure 134/59 L 106/51 L Pulse Oximetry 95 Oxygen Delivery Method 01/15/25 03:04 01/15/25 03:22 01/15/25 03:22 Temperature Pulse Rate 60 64 Respiratory Rate 26 H 25 H Blood Pressure 114/61 Pulse Oximetry 95 96 Oxygen Delivery Method 01/15/25 03:30 01/15/25 03:30 01/15/25 03:35 Temperature Pulse Rate 64 Respiratory Rate 19 Blood Pressure 105/54 L Pulse Oximetry 96 93 Oxygen Delivery Method 01/15/25 03:35 01/15/25 03:35 01/15/25 04:04 Temperature 98 F 98.2 F Pulse Rate 40 L Respiratory Rate 16 Blood Pressure 109/54 L 117/50 L Pulse Oximetry 95 Oxygen Delivery Method 01/15/25 04:28 Temperature Pulse Rate Respiratory Rate Blood Pressure Pulse Oximetry Oxygen Delivery Method Room Air Oxygen Delivery Method Room Air Narrative Exam Narrative: HEENT-unremarkable, normocephalic atraumatic Neck-no lymphadenopathy no bruits Lungs-clear anteriorly and posteriorly no wheezes no crackles good breath sounds Heart-regular rate and rhythm, no murmur, rub, or gallop. normal S1-S2 Abdomen-positive bowel tones, soft, nontender, nondistended, no hepatosplenomegaly, no masses palpable Neuro-normal to screening exam, no focal findings, obviously gait not tested Objective Labs 01/15/25 03:10 01/15/25 03:10 Labs: Laboratory Results - last 24 hr 01/15/25 01/15/25 01:04 03:10 WBC 9.8 RBC 4.06 L Hgb 13.1 L Hct 38.0 L MCV 93.7 MCH 32.2 MCHC 34.3 RDW 14.3 Plt Count 120 L Neut % (Auto) 85.6 H Lymph % (Auto) 7.1 L [place] % (Auto) 7.1 Eos % (Auto) 0.1 L Baso % (Auto) 0.1 Neut # (Auto) 8400 H Lymph # (Auto) 700 L [place] # (Auto) 700 Eos # (Auto) 0 Baso # (Auto) 0 Sodium 136 L Potassium 3.8 Chloride 106 Carbon Dioxide 23 BUN 22 H Creatinine 0.75 Estimated GFR > 60 BUN/Creatinine Ratio 29.3 H Glucose 128 H Calcium 8.3 L Total Bilirubin 0.4 AST 27 ALT 22 Alkaline Phosphatase 42 Total Protein 6.2 L Albumin 3.9 Globulin 2.3 Albumin/Globulin Ratio 1.7 Urine Color Yellow Urine Appearance Sl cloudy Urine pH 5.5 Ur Specific [place] >=1.030 H Urine Protein Negative Urine Glucose (UA) Negative Urine Ketones Trace H Urine Occult Blood Negative Urine Nitrate Negative Urine Bilirubin Negative Urine Urobilinogen 0.2 Ur Leukocyte Esterase Negative Urine RBC 0-1/hpf Urine WBC 1-5/hpf Ur Squamous Epith Cells 0-1 /hpf Urine Bacteria Many (>30) H Ur Culture Indicated? Cult not indicated Vol Urine Centrifuged 10ml (spun) Assessment & Plan Assessment & Plan narrative: 1. Acute right femoral subcapital neck fracture-to be surgically repaired later today by Orthopedic surgery who was notified by the ER physician. Patient to remain NPO until seen by Orthopedic surgery today. When able presumably postop okay to resume patient's usual meds which were fairly minimal 2. BPH with bladder outlet obstruction requiring chronic catheterization- continue with catheter obviously. Continue patient's usual meds when able including his tamsulosin and finasteride 3. Dementia-patient with significant cognitive issues has been placed and assisted living/memory care facility. Will need to return there when completed rehab that is nursing home facility after hip fracture repair. Continue with supportive care while here in the hospital. If need be medications for agitation can be employed but will not be ordered initially 4. Code status-patient and I have had multiple discussions regarding this, and we have filled out POLST form together although I can not find that in the medical record. I am very clear that patient would not want to be resuscitated in the setting of a sudden cardiac or respiratory arrest and therefore he was made a do not resuscitate for the purposes of this hospitalization. I confirmed this with the patient this morning. 5. VTE prophylaxis-SCDs for now. Chemo prophylaxis as per Orthopedic surgery postop. 6. Disposition-as above patient will need to go to nursing home for rehab and then returned to his assisted living/memory care facility Time-Based Coding :: [TOTAL MINUTES] spent with patient and on the chart (including review of chart, obtaining history, exam, reviewing outside data, placing orders, documenting exam and treatment plan, and counseling patient) on [DATE]. 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
[2025-01-15] MEDS: TAMSULOSIN 0.4 MG CAPSULE 0.8 MG PO (09:13)
[2025-01-15] MEDS: CITALOPRAM 10 MG TABLET 20 MG PO (09:13)
[2025-01-15] MEDS: FINASTERIDE 5 MG TABLET PO (09:13)
--- NOTE | 2025-01-15 15:19 | CM.DANOTE ---
Patient is a 84 yo male who was admitted INPT Status on 01/15/25 for GLF/Hip Fx. Pt has [facility] and [employer] for insurance and his PCP is Dr. Estuardo Hinton at [facility]. EMR was reviewed. Per MD, pt with dementia and had GLF and sustained R hip fx and has chronic garcia with possible UTI. Per Ortho, recommend surgery and scheduled for OR for today around 1600. SW met bedside with pt and explained role and pt very pleasant and talkative with many stories about his trips to [place] and difficult to stay on topic and he confirms he lives at [facility] now as he was primary CG to his spouse who has dementia and spouse currently in Memory Care at [facility] and pt now lives at [facility] himself but in a different building than his spouse. Pt confirms his local son Flaco is his POA and very involved and supportive. Pt was hopeful to d/c back to [facility] but aware that SNF might be needed at d/c. [facility] currently on stop-placement and would not be able to accept pt back at this time even if pt mobilizes well after surgery. SW made initial referral to [facility] to review in case SNF needed, no PASRR done yet. Plan: SW to follow closely for PT/OT tomorrow after surgery tonight to confirm SNF needed and if son preference is [facility]. TAMMI Mccoy Discharge Planning/Care Management CM Discharge Assessment Start: 01/15/25 15:17 Freq: Status: Active Protocol: Document 01/15/25 15:17 BF (Rec: 01/15/25 15:19 BF [id number]) Discharge Planning Assessment Assigned Low Vision Therapist TAMMI Christian DPOA/Assigned Designee Name carmelita Sam Contact Information [phone] Advance Directives? Yes: POA Advance Directives on File No History Provided By Patient,Medical Record Has Patient been admitted in last 30 No days? Prior Living Arrangements Assisted Living Household Members none Type of transporation used prior to Relies on Others admit Independent with ADL's No Is patient alert and oriented? Yes: somewhat, mild cog impairment Needs Assistance With Meal Prep,Managing Medications ,Home Chores / Shopping Caregiver for Another No DME Already Rented / Owned FWW / Walker Patient/Family Preference Retirement Facility Comment Likely SNF after surgery today for hip fx Barriers to Discharge No Discharge Plan Retirement Facility Transportation Arrangement Facility van Referrals Initiated Retirement Medicare Choice List Provided Yes Medicare choice list reviewed on patient electronic tablet with SNF/HH Preference Reviewing, pending PT/OT [place] Has Agency SNF been contacted Yes Whiteboard Updated in Patient Room with Yes name and ext. # of Low Vision Therapist Review Status In Process Please Provide Date Initial DC 01/15/25 Assessment Was Performed Next Review Type Continued Stay Review
--- NOTE | 2025-01-15 15:44 | PC.NURSE ---
1535 Pt to OR via bed with Chart by TEXTILE DYER.
[2025-01-15] MEDS: LACTATED RINGERS 1,000 ML 42 ML IV (15:50)
[2025-01-15] MEDS: ACETAMINOPHEN IV 1,000 MG/100 ML VIAL 400 MG IV (15:59)
[2025-01-15] MEDS: FAMOTIDINE 20 MG/2 ML VIAL IV (15:59)
--- NOTE | 2025-01-15 16:00 | P.HP_ITS ---
History of Present Illness History of Present Illness Chief complaint: GLF with hip pain Narrative: Carmelo is a pleasant 84 year old male w/ dementia who somewhat recently was placed in assisted at [facility], he reports he fell out of bed but his son who is at bedside states that he fell while walking to the bathroom at [facility]. He would like to go back to [facility] eventually after surgery, in discussion w/ the son it is understood that SNF placement after surgery would be needed prior to d/c back to [facility]. The son states that to his knowledge the patient has never had a blood clot, never had GI surgery, never had a gastric ulcer. He denies any known heart or lung disease. [facility] Medical History Urinary retention Durant catheter in place Obstructive uropathy Complex renal cyst Dementia Acquired hypothyroidism Surgical History Anesthesia History of hernia repair Family History Father Cancer Mother Bronchitis Social History household members: none Smoking Status: Never smoker alcohol intake: never caffeine: Yes Meds Home Medications and Allergies Home Medications Medication Instructions Recorded Confirmed Type citalopram 20 mg tablet 20 mg PO DAILY #90 tabs 08/11/24 01/15/25 Rx finasteride 5 mg tablet 5 mg PO DAILY #90 tabs 10/23/24 01/15/25 Rx tamsulosin 0.4 mg capsule 0.8 mg (2 x 0.4 mg) PO DAILY #180 10/23/24 01/15/25 Rx caps acetaminophen 650 mg PO PRN PRN pain/fever 01/15/25 01/15/25 History ciprofloxacin HCl 500 mg tablet 500 mg PO BID 01/15/25 01/15/25 History lorazepam 0.5 mg tablet (Ativan) 0.5 mg PO Q4HR PRN Agitation 01/15/25 01/15/25 History magnesium hydroxide 400 mg/5 mL 400 mg PO PRN PRN Constipation 01/15/25 01/15/25 History oral suspension (Milk of Magnesia) Allergies Allergy/AdvReac Type Severity Reaction Status Date / Time No Known Drug Allergies Allergy Verified 01/15/25 15:39 Exam Vital Signs (past 8 hours): - 01/15/25 12:00 Temperature 98.3 F Pulse Rate 77 Respiratory Rate 14 Blood Pressure 119/44 L Pulse Oximetry 97 Oxygen Flow Rate 0 Oxygen Delivery Method Room Air Oxygen Flow Rate 0 Narrative Exam Narrative: Patient lying comfortably in bed during our interview today. No acute distress. 5/5 strength with DF, PF, EHL bilaterally. Gross sensation intact throughout bilateral lower extremities. Calves soft and non-tender bilaterally. SCDs are on and functioning. Brisk capillary refill, pulses intact. Objective Labs 01/15/25 03:10 01/15/25 03:10 Labs: Laboratory Results - last 24 hr 01/15/25 01/15/25 01:04 03:10 WBC 9.8 RBC 4.06 L Hgb 13.1 L Hct 38.0 L MCV 93.7 MCH 32.2 MCHC 34.3 RDW 14.3 Plt Count 120 L Neut % (Auto) 85.6 H Lymph % (Auto) 7.1 L [place] % (Auto) 7.1 Eos % (Auto) 0.1 L Baso % (Auto) 0.1 Neut # (Auto) 8400 H Lymph # (Auto) 700 L [place] # (Auto) 700 Eos # (Auto) 0 Baso # (Auto) 0 Sodium 136 L Potassium 3.8 Chloride 106 Carbon Dioxide 23 BUN 22 H Creatinine 0.75 Estimated GFR > 60 BUN/Creatinine Ratio 29.3 H Glucose 128 H Calcium 8.3 L Total Bilirubin 0.4 AST 27 ALT 22 Alkaline Phosphatase 42 Total Protein 6.2 L Albumin 3.9 Globulin 2.3 Albumin/Globulin Ratio 1.7 Urine Color Yellow Urine Appearance Sl cloudy Urine pH 5.5 Ur Specific [place] >=1.030 H Urine Protein Negative Urine Glucose (UA) Negative Urine Ketones Trace H Urine Occult Blood Negative Urine Nitrate Negative Urine Bilirubin Negative Urine Urobilinogen 0.2 Ur Leukocyte Esterase Negative Urine RBC 0-1/hpf Urine WBC 1-5/hpf Ur Squamous Epith Cells 0-1 /hpf Urine Bacteria Many (>30) H Ur Culture Indicated? Cult not indicated Vol Urine Centrifuged 10ml (spun) Assessment & Plan Assessment and plan (1) Closed right hip fracture: Qualifiers: Encounter type: initial encounter Qualified Code(s): S72.001A - Fracture of unspecified part of neck of right femur, initial encounter for closed fracture Status: Acute Plan 1) Plan for posterior approach, cemented unipolar hip replacement today. I discussed with the patient and his son the risks of surgery including but not limited to infection, damage to nerves or blood vessels, blood loss, continued pain and possible need for future need for revision surgery. 2) Plan ASA b.i.d. for DVT prophylaxis post-op. 3) Will work w/ physical therapy post-op to improve range of motion and mobility. WBAT, will need to maintain posterior hip precautions. 4) Keep post-op dressing intact, clean, dry until 2 week postop appointment. No soaking the incision site in pools or tubs. No topical ointments or creams to the incision site. 5) Will follow up at [facility] orthopedics in 2 weeks for a postop appointment and wound check. All patient's questions were answered, they demonstrates understanding and are in agreement with the plan. Call our office if any questions or concerns arise. Time-Based Coding :: [TOTAL MINUTES] spent with patient and on the chart (including review of chart, obtaining history, exam, reviewing outside data, placing orders, documenting exam and treatment plan, and counseling patient) on [DATE].
--- NOTE | 2025-01-15 17:57 | PM.PREOP ---
Pre-operative Note Interval Note History & Physical reviewed/Exam performed by Physician: Yes Changes to H&P: No H&P completed within 30 days and has changed as indicated here:: Dr. Talbot dictating I saw the patient but I am unable to log in the [facility] because it is down. I reviewed the procedure options risks benefits and complications with the patient and his son who is at bedside. Please see H and P by Yajaira IBRAHIM
--- NOTE | 2025-01-15 21:14 | PM.OP.1 ---
Operative Date/Time/Diagnoses Date of procedure: 01/15/25 Time of procedure: 19:40 Pre-op diagnosis: Right femoral neck fracture Post-op diagnosis: same Procedure & Clinicians Procedure: Right hip unipolar replacement posterior approach Same procedure as scheduled: Yes Indications: The patient fell and sustained a right femoral neck fracture. He was brought to the operating room for a right cemented unipolar. The risks, benefits and alternatives to surgery were discussed with the patient prior to proceeding. Risks discussed included, but were not limited to, failure to relieve pain, leg length discrepancy, dislocation, stiffness, infection, nerve damage, deep venous thrombosis, pulmonary embolism, stroke, coma, heart attack, permanent paralysis and , as well as the potential need for eventual revision of the prosthetic. Surgeon: Radha Talbot Manager Of Purchasing: Yajaira Marsh Anesthesia Type: General Operative Notes Findings: Displaced right femoral neck fracture, adequate stability, soft but adequate bone, minimal acetabular OA Closure Type: primary Specimen(s): none sent Prosthetic devices, grafts, tissues, transplants, or devices: Talbot and nephew 13 mm synergy cemented high offset, 50 mm head, +4 neck Estimated Blood Loss (mL): 250 Blood products transfused: none Procedure in detail: The patient was seen in the pre-operative area, where the patient identified the right hip as the operative site and this was marked with my initials. The patient received pre-operative antibiotics and was taken to the operating room and placed on the operative table in the supine position after satisfactory anesthesia. A time clock mechanic out was performed. Patient was placed in the lateral decubitus position and all bony prominences were carefully padded and the arms were appropriately position. A PA was used during the procedure and was essential for intraoperative retraction and safe implantation of the components. The right lower extremity was prepared from the ankle to the iliac crest with ChloroPrep in the usual fashion and draped through sterile drapes. The right hip was approached through posterolateral approach. Dissection was carried out down through skin and subcutaneous tissues. The fascia was opened. Gelpi retractors were placed. A Charnley retractor was placed. A small amount of inflamed bursa was resected. The piriformis was identified and protected. The other short external rotators and capsule were carefully stripped from the posterior aspect of the femur. They were tagged and carefully retracted. The femoral neck was brought up and an osteotomy was made of the residual femoral neck approximately 1 fingerbreadth above the lesser trochanter. The head was removed without difficulty. It was carefully sized. The acetabulum was meticulously irrigated with normal saline. There were [mild] changes in the acetabulum. The acetabulum was carefully protected with an E tape. The canal was opened with a box cutting osteotome, followed by a T-handled reamer and a lateralizing reamer. The tapered reamers were then used, followed by sequential broaching. A trial head and neck were then placed and the hip relocated and checked for leg length and stability. I checked 2 intraoperative films 1 was with a standard offset and 1 was with a high offset there was better tension of the abductors and better stability and restored offset and leg lengths with a high offset stem. The patient was stable in the position of sleep, of squatting, and could be put through a range of motion with 45 degrees internal rotation without dislocation. At 90 degrees flexion, internal rotation to 80 ? was possible before dislocation. This was felt to be satisfactory and the appropriate components were opened, and the trials were removed. The femoral canal was sized and a distal cement restrictor was placed. The bone was meticulously cleaned with pulse lavage. The canal was packed with vaginal packing with epinephrine. Antibiotics cement was mixed and carefully pressurized into the femoral canal. The femoral component was placed without difficulty. A repeat trial reduction showed good range of motion and stability. We did a brief Betadine soak after the cement had hardened. Patient had good range of motion and stability. The final head and neck were placed after carefully irrigating the wound. The capsulomuscular flap was then repaired to the greater trochanter though an awl hole using the tag sutures. The short external rotators were repaired with interrupted stitches. The fascia bertha was closed with black braided nylon. The subcutaneous layer was closed with interrupted 3-0 Vicryl, and the skin with a running 3-0 V-Lock suture and surgical glue. An Aquacel Ag dressing was applied and the patient was taken to recovery having tolerated the procedure well. Complications: none Post-operative Condition: stable Disposition: Acute Care Plan for aftercare: The patient will be maintained on a standard total hip replacement protocol with weight bearing as tolerated and posterior hip precautions. The patient will receive Aspirin and sequential compression devices for DVT prophylaxis. The patient will be discharged home when safe for the home environment.
[2025-01-15] MEDS: LACTATED RINGERS 1,000 ML 100 ML IV (22:42)
--- NOTE | 2025-01-15 22:49 | SUR.PHASEI ---
Pt transferred to room 223 with glasses.
[2025-01-15] MEDS: CEFAZOLIN 2 GM/100 ML PREMIX 100 ML IV (23:21)
[2025-01-16 00:40] VITALS: BP 110/54; PULSE 67; RESP 18; O2SAT 95
[2025-01-16 01:40] VITALS: BP 118/57; PULSE 63; RESP 18; O2SAT 98
[2025-01-16 03:05] VITALS: TEMP 36.6
[2025-01-16 05:02] LABS: Add Manual Diff / Slide Review NO; Basophils Absolute Auto 100 /uL (0-100); Basophils Percent Auto 0.7 % (0-2); Eosinophils Absolute Auto 0 /uL (0-450); Eosinophils Percent Auto 0.4 % (2-4); Hematocrit 33.7 % (41-53); Hemoglobin 11.7 g/dL (13.5-17.5); Lymphocytes Absolute Auto 200 /uL (1100-4500); Lymphocytes Percent Auto 2.1 % (25-40); Mean Corpuscular HGB Conc 34.7 % (30-36); Mean Corpuscular Hemoglobin 32.8 PG (26-34); Mean Corpuscular Volume 94.5 fL (80-100); Monocytes Absolute Auto 300 /uL (0-900); Monocytes Percent Auto 4.3 % (3-14); Neutrophils Absolute Auto 6900 /uL (1500-7000); Neutrophils Percent Auto 92.5 % (50-75); Platelet Count 97 X10^3/uL (150-400); Red Blood Cell Count 3.56 X10^6/uL (4.5-5.9); Red Cell Distribution Width 14.6 % (11.6-14.8); White Blood Cell Count 7.4 X10^3/uL (4.5-11.0)
[2025-01-16 05:11] LABS: BUN Creatinine Ratio 20.3 (6-22); Blood Urea Nitrogen 13 mg/dL (9-20); Calcium 8.2 mg/dL (8.4-10.2); Carbon Dioxide 26 mmol/L (22-32); Chloride 102 mmol/L (98-107); Estimated Glomerular Filt Rate > 60 mL/min (>60); Glucose 147 mg/dL (80-110); HEMOLYSIS < 15 (0-50); Potassium 4.4 mmol/L (3.4-5.1); Sodium 133 mmol/L (137-145)
[2025-01-16] MEDS: CEFAZOLIN 2 GM/100 ML PREMIX 100 ML IV (06:13)
--- NOTE | 2025-01-16 06:32 | PC.NURSE ---
NOC Shift Note- Patient arrived back to room via bed from PACU at 2230. Patient sleeping. Patient wakes easy to voice, able to answer question and falls right back to sleep. Patient arrived on o2/nc/2L. SpO2 monitor placed on finger to monitor. Patient began to mouth breath and O2 dropped down in low 80s. RT came to assist. Patient place on NRB mask and O2 increased to 3L then 4L and then to 5L. Monitored patient. decreased o2 to 3.5L at 0615 to attempt to D/c O2. Patient able to maintain O2 above 90%, will monitor and continue o decrease as tolerated.
--- NOTE | 2025-01-16 06:48 | PM.PN.IH.1 ---
Subjective Subjective Date Patient Seen: 01/16/25 Time Patient Seen: 06:48 Interval history: Patient underwent surgery to fixate his right hip fracture Had a bit of an oxygen requirement postoperatively, but that did not persist and now stable on room air No complaints from patient. Sitting up eating breakfast moving his right leg when asked with minimal discomfort Exam Vital Signs (past 8 hours): - 01/15/25 23:10 01/15/25 23:40 01/15/25 23:45 Temperature 97.1 F L Pulse Rate 73 72 Respiratory Rate 20 16 Blood Pressure 121/52 L 110/53 L Pulse Oximetry 96 90 L 96 Oxygen Delivery Method Oximask Oxygen Flow Rate 5 5 5 Fraction of Inspired Oxygen 36 01/16/25 00:40 01/16/25 01:40 01/16/25 03:05 Temperature 97.8 F Pulse Rate 67 63 Respiratory Rate 18 18 Blood Pressure 110/54 L 118/57 L Pulse Oximetry 95 98 Oxygen Delivery Method Oxygen Flow Rate Fraction of Inspired Oxygen Fraction of Inspired Oxygen 36 SaO2/FiO2 Ratio 266 Oxygen Delivery Method Oximask Oxygen Flow Rate 5 Objective Labs 01/16/25 04:30 01/16/25 04:30 Labs: Laboratory Results - last 24 hr 01/16/25 04:30 WBC 7.4 RBC 3.56 L Hgb 11.7 L Hct 33.7 L MCV 94.5 MCH 32.8 MCHC 34.7 RDW 14.6 Plt Count 97 L Neut % (Auto) 92.5 H Lymph % (Auto) 2.1 L Pitkin % (Auto) 4.3 Eos % (Auto) 0.4 L Baso % (Auto) 0.7 Neut # (Auto) 6900 Lymph # (Auto) 200 L Pitkin # (Auto) 300 Eos # (Auto) 0 Baso # (Auto) 100 Sodium 133 L Potassium 4.4 Chloride 102 Carbon Dioxide 26 BUN 13 Creatinine 0.64 L Estimated GFR > 60 BUN/Creatinine Ratio 20.3 Glucose 147 H Calcium 8.2 L PFSH Medical History Urinary retention Durant catheter in place Obstructive uropathy Complex renal cyst Dementia Acquired hypothyroidism Surgical History Anesthesia History of hernia repair Family History Father Cancer Mother Bronchitis Social History household members: none Smoking Status: Never smoker alcohol intake: never caffeine: Yes Assessment & Plan Assessment & Plan narrative: 1. Postop day 1. Status post ORIF right unipolar hip replacement due to fracture-continue postoperative management including rehab and VTE prophylaxis as per Orthopedic surgery 2. Bladder outlet obstruction with chronic indwelling Durant-continue Durant in place 3. Dementia-continue to monitor for agitation etcetera 4. VTE prophylaxis-as per Orthopedic surgery 5. [facility] with [facility] and bed available etcetera Time-Based Coding :: [TOTAL MINUTES] spent with patient and on the chart (including review of chart, obtaining history, exam, reviewing outside data, placing orders, documenting exam and treatment plan, and counseling patient) on [DATE]. [employer] Document charge(s): Yes Charge Codes Subsequent inpatient/observation care: [id number]
[2025-01-16] MEDS: CIPROFLOXACIN 250 MG TABLET 500 MG PO ×2 (09:22→20:48)
[2025-01-16] MEDS: DOCUSATE 100 MG CAPSULE PO ×2 (09:22→20:48)
[2025-01-16] MEDS: IBUPROFEN 400 MG TABLET PO ×4 (09:22→20:48)
[2025-01-16] MEDS: ACETAMINOPHEN 325 MG TABLET 650 MG PO ×3 (09:23→20:49)
[2025-01-16] MEDS: OXYCODONE IR 5 MG TABLET PO ×3 (09:23→20:48)
[2025-01-16] MEDS: ASPIRIN EC 81 MG TABLET PO ×2 (09:25→20:49)
--- NOTE | 2025-01-16 09:45 | PT.IIE ---
Current Diagnoses Fracture of unspecified part of neck of right femur, initial encounter for closed fracture (01/15/25) Unspecified intracapsular fracture of right femur, initial encounter for closed fracture (01/15/25) Surgery Performed Operation Date: 01/15/25 16:00 <No data on this case meets the specified criteria> Surgical History (Last Reviewed 01/15/25 @ 07:51 by Estuardo Hinton MD) Anesthesia History of hernia repair Medical History (Last Reviewed 01/15/25 @ 07:51 by Estuardo Hinton MD) Acquired hypothyroidism Complex renal cyst Dementia Durant catheter in place Obstructive uropathy Urinary retention Physical Therapy Inpatient Evaluation/Re-Eval M1 PT/OT-IP Prior Functional Status Start: 01/16/25 12:42 Freq: NEEDED Status: Active Protocol: Document 01/16/25 09:45 AB (Rec: 01/16/25 12:57 AB [id number]) Medical Review Prior Functional Status Medical History Reviewed Yes Communication able to make needs known Mobility and Gait son in room and provided pt's PLOF and home set up as pt has memory issues and not certain about info. son stated that pt was independent with bed mobility, transfers and ambulation without AD. son stated that pt has a call button to ask for assistance at [facility] but pt forgets to ask for assistance. Activities of Daily Living and IADL's Staff at [facility] assists pt with shower needs Social History Household Members caregiver Living Arrangements Assisted Living Number of Floors (Floors) Two Floors Number of Stairs To Enter/Railing? pt lives at the [facility] 2nd floor and has access to an elevator. Per son, plan is for pt to go to [facility] care unit which is on the main level Home Environment Standard Height Toilet,Walk in Shower Home Equipment Shower Seat with Backrest,Hand Held Shower,Grab Bars Near Toilet,Grab Bars In Shower M2 PT-IP Current Condition Start: 01/16/25 12:42 Freq: NEEDED Status: Active Protocol: Document 01/16/25 09:45 AB (Rec: 01/16/25 12:57 AB [id number]) Physical Therapy Current Condition Current Condition Evaluation Date 01/16/25 Treatment Diagnosis s/p R hip hemiarthroplasty; difficulty in walking Onset Date 01/15/25 M3 PT-IP Subjective Start: 04/15/25 12:42 Freq: NEEDED Status: Active Protocol: Document 01/16/25 09:45 AB (Rec: 01/16/25 12:57 AB [id number]) Subjective Physical Therapy Visit Type Type Initial Evaluation Visit Start Time 09:45 Visit Stop Time 10:35 Number of POOL TECHNICIAN Visits 0 Physical Therapy Visit Comments Patient Comments agreeable to get up Therapy Pain Assessment Pain When Pain Assessed During Mobility Pain Present Pain Present Pain Reported Location Right groin Scale Used pain scale not stated Pain Management Techniques Elevation,Modification of Treatment,Re-positioning, Timing of Activity with Medications M4 PT-IP Mobility and Gait Start: 01/16/25 12:42 Freq: NEEDED Status: Active Protocol: Document 01/16/25 09:45 AB (Rec: 01/16/25 12:57 AB [id number]) PT-Bed Mobility Assessment Supine to Sit Supine to Sit Maximum Assistance,1 Person Assistance,Head of Bed Elevated,Bedrails PT-Transfer Assessment Sit to and From Stand Sit to and from Stand Maximum Assistance,2 Person Assistance,Use of Upper Extremities Equipment Transfer Assistive Device Gait Belt,Front Wheeled Walker Orthotic/Prosthetic Devices or Brace: No Transfers Transfer Destination Chair Transfer Technique ambulated Transfer Ability Level of Assist Maximum Assistance,1 Person Assistance,Use of Upper Extremities Comments Mobility Comments pt in bed and pt's son in room . obtained PLOF and home set up. Son provided most of the info due to pt's decrease memory. Informed pt and son regarding pt's R hip posterior precautions. post- op folder provided and reviewed with pt. Pt unable to recall any of the hip precautions despite education and repetitions. BP in supine : 113/47. pt completed supine to sit max A and max cues. HOB elevated. pt required one step max cues with all tasks. pt able to sit on EOB SBA. BP checked : 123/41. pt completed sit to stand x 2 attempts. pt unable to stand on first attempt with max A and max cues and completed again requiring max A x 2 and max cues. pt with difficulty following directions. pt ambulated in room using FWW ~ 15 ft max A and max cues. assisted pt to chair requiring max A x 1-2 for controlled descent and max cues. positioned pt on the chair. call light and table placed within reach. Left pt with son in room. informed nurse and NAC that pt will need a chair alarm and 2 PA with nursing staff. Gait Assessment Gait Gait Assistance Required: Maximum Assistance Distance (Feet) 20 Able to Maintain Weight Bearing Status Yes During Gait Assistive Devices Assistive Device Gait Belt,Front Wheeled Walker Orthotic/Prosthetic Devices or Brace: No Gait Deviations General Gait Pattern Antalgic,Decreased Stride Length,Decreased Feet Clearance Factors Limiting Gait Function Factors Limiting Gait Function Decreased Activity Tolerance, Decreased Strength,Difficulty Following Directions, Incoordination,Limited Range of Motion,Pain,Poor Balance, Poor Safety Awareness PT-Balance Assessment Sitting Balance and Reactions Static Sitting Balance Ability Good Dynamic Sitting Balance Ability Good Standing Balance and Reactions Static Standing Balance Ability Fair Dynamic Standing Balance Ability Poor Device Used FWW M5 PT-IP Objective Assessments Start: 01/16/25 12:42 Freq: NEEDED Status: Active Protocol: Document 01/16/25 09:45 AB (Rec: 01/16/25 12:57 AB [id number]) Orientation Orientation/Cognition Level of Alertness Confusional State Orientation Name Language Function Ability Hard of Hearing Safety Awareness Decreased Safety Awareness Memory Description Short Term Impaired,Shelter Impaired Gross Range of Motion Lower Extremity ROM Assessment Within Functional Limits Strength Lower Extremity Strength Assessment Right Impaired Hip 3-/5 Knee 3+/5 Muscle Tone Muscle Tone WNL Yes M6 PT-IP Treatment Start: 01/16/25 12:42 Freq: NEEDED Status: Active Protocol: Document 01/16/25 09:45 AB (Rec: 01/16/25 12:57 AB [id number]) Physical Therapy Treatment Exercises Exercises Heel Slides Education Education Provided Precautions,Weight Bearing Status,Post-Op Packet,Safety M7 PT-IP Assessment and Plan Start: 01/16/25 12:42 Freq: NEEDED Status: Active Protocol: Document 01/16/25 09:45 AB (Rec: 01/16/25 12:57 AB [id number]) PT Summary Assessment and Plan Potential Rehabilitation Potential Fair Status of Condition at Evaluation Evolving Summary Impairments Pain,ROM,Strength,Balance, Coordination,Sensation,Tone, Cognition,Bed Mobility, Transfers,Gait,Activity Tolerance Assessment Summary pt is an 84 y/o M s/p fall and sustain a R hip fx. pt underwent R hip hemiarthroplasty POD 1 and has R hip posterior precautions and is WBAT. pt requiring max A for bed mobility, max A x 2 for sit to stand/transfers and max A for ambulation using FWW. pt requiring one step max cues with all tasks and needing repetitions with instructions. pt will benefit from SNF rehab to improve overall strength and mobility. Goals Bed Mobility Goal Standby Assistance Transfer Goal Standby Assistance,Front Wheeled Walker Gait Goal Standby Assistance,Front Wheel Walker Gait Distance 150 Days to Meet Goals 10 Frequency of Treatment Frequency Of Treatment Twice a Day Treatment Plan Physical Therapy Treatment Plan Bed Mobility Training,Transfer Training,Gait Training, Therapeutic Exercise,Balance Retraining,Post Op Education, Discharge Planning,Hot or Cold Pack,Neuromuscular Re-ed, Coordination Retraining,Manual Therapy Precautions Posterior Hip Precautions No Hip Flexion > 90 degrees,No Hip Internal Rotation,No Hip Adduction Weight Bearing Status Weight Bearing Status Weight Bear as Tolerated Allowed Weight Bearing Amount (enter % RLE WBAT or #) (%) Recommendations To Nursing Amount of Assist Needed 2 Person Assist Discharge Recommendations PT Discharge Recommendations SNF Rehab Transportation Needs at Discharge Wheelchair/Cabulance - PT assist 2
--- NOTE | 2025-01-16 10:45 | OT.IP.EVAL ---
Addendum entered and electronically signed by Kaye Rodgers OT 01/16/25 12:23: esign Original Note: Current Diagnoses Fracture of unspecified part of neck of right femur, initial encounter for closed fracture (01/15/25) Unspecified intracapsular fracture of right femur, initial encounter for closed fracture (01/15/25) Surgery Performed Operation Date: 01/15/25 16:00 <No data on this case meets the specified criteria> Past Medical History (Last Reviewed 01/15/25 @ 07:51 by Estuardo Hinton MD) Acquired hypothyroidism Complex renal cyst Dementia Durant catheter in place Obstructive uropathy Urinary retention Surgical History (Last Reviewed 01/15/25 @ 07:51 by Estuardo Hinton MD) Anesthesia History of hernia repair Occupational Therapy Inpatient Evaluation/Re-Eval M1 PT/OT-IP Prior Functional Status Start: 01/16/25 11:16 Freq: NEEDED Status: Active Protocol: Document 01/16/25 11:17 [facility] (Rec: 01/16/25 11:33 [facility] Desktop) Medical Review Prior Functional Status Mobility and Gait Pt states did not use a device . Activities of Daily Living and IADL's Pt states able to care for himself. Prior Functional Level (Other details) Called [facility] to call for prior level of care. Staff states in the process of getting finances situated so able to go to memory care there. Staff states he is a wanderer. Social History Household Members none Living Arrangements Assisted Living M2 OT-IP Current Condition Start: 01/16/25 11:16 Freq: Status: Active Protocol: Document 01/16/25 11:17 [facility] (Rec: 01/16/25 11:33 [facility] Desktop) Occupational Therapy Current Condition Current Condition Evaluation Date 01/16/25 Treatment Diagnosis S/P Right ORIF with unipolar, posterior approach Post Operative Precautions Posterior Hip Precautions No Hip Flexion > 90 degrees,No Hip Internal Rotation,No Hip Adduction M3 OT- IP Subjective and Pain Start: 01/16/25 11:16 Freq: Status: Active Protocol: Document 01/16/25 11:17 [facility] (Rec: 01/16/25 11:33 [facility] Desktop) OT- Subjective Occupational Therapy Visit Type Type Initial Evaluation Visit Start Time 10:45 Visit Stop Time 11:13 Occupational Therapy Visit Comments Patient Comments Pt agreed to get up . Patient/Caregiver Goals TO get better to be sailing again. OT Pain Assessment Pain When Pain Assessed At Rest Pain Present Pain Present Pain Reported Location Right groin Intensity 2 Scale Used Numeric (0 - 10) M4 OT- IP ADL's Start: 01/16/25 11:16 Freq: Status: Active Protocol: Document 01/16/25 11:17 [facility] (Rec: 01/16/25 11:33 [facility] Desktop) OT [id number] Comments OT Self-Feeding Comments Not at meal time. OT ADL-Grooming General Evaluation Grooming Ability Standby Assistance Areas Needing Assistance Retrieving/Set-up of Grooming Items Comments OT Grooming Comments While seated. OT ADL-Oral Care General Eval Oral Care Ability Standby Assistance Comments Oral Care Comments While seated. OT ADL-Dressing General Eval Lower Body Dressing Ability Maximum Assistance Comments OT Dressing Comments Able to practice use of chemical worker and sock aid so able to follow his hip precautions for LB dressing needs. Pt needing MAX vc to be able to follow commands. OT ADL-Toileting General Evaluation Toileting Ability Total Assistance Devices Toileting Assistive Devices Urinal Comments OT Toileting Comments Durant in place. OT ADL-Bathing Comments OT Bathing Comments Use of rolling shower chair or sponge bath more appropriate at this time. M5 OT- IP IADL's Start: 01/16/25 11:16 Freq: Status: Active Protocol: Document 01/16/25 11:17 [facility] (Rec: 01/16/25 11:33 [facility] Desktop) OT-Instrumental Activities of Daily Living Deficits IADL Deficits Identified Deficits Home Safety Awareness Awareness of Need for Assistance at Home Decreased Awareness Ability to Problem Solve Emergency Unable to Problem Solve Situations Medication Management Medication Management Caregiver Administers Money Management Money Management Caregiver Provides Assistance Meal Preparation Meal Preparation Caregiver Provides Assist News Assistant News Assistant Caregiver Provides Assist M6 OT- IP Functional Cognition Start: 01/16/25 11:16 Freq: Status: Active Protocol: Document 01/16/25 11:17 [facility] (Rec: 01/16/25 11:33 [facility] Desktop) Cognitive Factors Limiting Selfcare Function Cognitive Ability Level of Alertness Alert,Confusional State Patient Orientation Name Attention Span Ability Unable to Focus,Unable to Sustain Attention Ability to Follow Commands Able to Follow One Step Commands with Increased Time, Able to Follow One Step Commands with Repetition Memory Description Short Term Impaired,Working Impaired Safety Awareness Decreased Recall of Precautions,Decreased Ability to Apply Precautions, Underestimates Need for Assistance Problem Solving Ability Unable to Identify Errors, Needs Assist to Identify Solutions Cognitive Comments Cognitive Assessment Comments Pt mainly just orientated to his name. Pt not aware that he broke his hip or that he is in the hospital. OT- Vision and Hearing OT- Vision Assessment Visual Acuity Glasses All The Time Visual Attentiveness WFL M7 OT- IP Mobility and Balance Start: 01/16/25 11:16 Freq: Status: Active Protocol: Document 01/16/25 11:17 [facility] (Rec: 01/16/25 11:33 [facility] Desktop) OT-Transfer Assessment Sit to and From Stand Sit to and from Stand Maximum Assistance Devices Transfer Assistive Devices Gait Belt,Front Wheeled Walker Comments Mobility Comments Educated pt to scoot forwards but not to lean forward as would be bending greater than 90 degrees. MAX vc so pt able to follow keeping his RLE forwards while coming to sit and stand to the FWW. Pt very unsteady and not able to follow safety for his hip precautions. OT- Balance Assessment Sitting Balance and Reactions Static Sitting Balance Ability Good Dynamic Sitting Balance Ability Good Standing Balance and Reactions Static Standing Balance Ability Poor M8 OT- IP Objective Assessments Start: 01/16/25 11:16 Freq: Status: Active Protocol: Document 01/16/25 11:17 [facility] (Rec: 01/16/25 11:33 [facility] Desktop) OT Gross Range of Motion Upper Extremity Range of Motion Assessment Within Functional Limits OT Strength Comments Strength Comments BUE 4/5 grossly M9 OT- IP Assessment and Plan Start: 01/16/25 11:16 Freq: Status: Active Protocol: Document 01/16/25 11:17 [facility] (Rec: 01/16/25 11:33 [facility] Desktop) OT Summary Assessment and Plan Potential Rehabilitation Potential Good Analytic Complexity at Evaluation Moderate Summary OT Impairments Pain,Strength,Balance, Functional Cognition, Functional Mobility,Self- Feeding,Grooming,Dressing, Toileting,Bathing,Toilet Transfers,Shower Transfers, Activity Tolerance Progress Towards Goals Slow Progress due to Pain,Slow Progress due to Medical Issues,Slow Progress due to Cognition Assessment Summary Pt MOD complexity and main barriers are decreased strength, endurance, and not able to recall his hip precautions- pt has dementia. Pt will benefit from skilled rehab and afterwards memory care. Goals Self-Feeding Goal Independent Grooming Goal Independent Dressing Goal Moderate Assistance Toileting Goal Standby Assistance Bathing Goal Minimal Assistance Toilet Transfer Goal Standby Assistance Shower Transfer Goal Standby Assistance Days to Meet Goals 20 Frequency of Treatment Other frequency 5x/week Treatment Plan OT Treatment Plan ADL Training,Functional Mobility,Patient/Family Education,Discharge Planning Discharge Recommendations OT Discharge Recommendations SNF Rehab Transportation Needs at Discharge Wheelchair/Cabulance
[2025-01-16 12:30] VITALS: BP 122/62; PULSE 62; RESP 15; TEMP 36.8; O2SAT 97
--- NOTE | 2025-01-16 13:55 | PT.IPTN ---
Current Diagnoses Fracture of unspecified part of neck of right femur, initial encounter for closed fracture (01/15/25) Unspecified intracapsular fracture of right femur, initial encounter for closed fracture (01/15/25) Presence of unspecified artificial hip joint (01/15/25) Surgery Performed Operation Date: 01/15/25 16:00 Actual Procedures p Hip posterior unipolar cemented(Right) - Radha Talbot MD Physical Therapy Treatment Note M2 PT-IP Current Condition Start: 01/16/25 12:42 Freq: NEEDED Status: Active Protocol: Document 01/16/25 09:45 AB (Rec: 01/16/25 12:57 AB [id number]) Physical Therapy Current Condition Current Condition Evaluation Date 01/16/25 Treatment Diagnosis s/p R hip hemiarthroplasty; difficulty in walking Onset Date 01/15/25 M3 PT-IP Subjective Start: 01/16/25 12:42 Freq: NEEDED Status: Active Protocol: Document 01/16/25 13:55 AB (Rec: 01/16/25 18:00 AB [id number]) Subjective Physical Therapy Visit Type Type Treatment Note Visit Start Time 13:55 Visit Stop Time 14:20 Number of SAND PLANT ATTENDANT Visits 25 M4 PT-IP Mobility and Gait Start: 01/16/25 12:42 Freq: NEEDED Status: Active Protocol: Document 01/16/25 13:55 AB (Rec: 01/16/25 18:00 AB [id number]) PT-Transfer Assessment Sit to and From Stand Sit to and from Stand Minimal Assistance,1 Person Assistance,Use of Upper Extremities Equipment Transfer Assistive Device Gait Belt,Front Wheeled Walker Orthotic/Prosthetic Devices or Brace: No Comments Mobility Comments pt sitting on the chair and son in room. pt agreed to do PT. Reviewed posterior hip precautions with pt and pt read precautions from handout. pt continues not to remember his posterior precautions. pt completed sit to stand from the chair min A and max cues. pt unable to adhere with R hip posterior precautions. pt ambulated in room using FWW min to mod A and max cues ~ 60 ft. pt with decrease safety awareness and tends to let go of FWW during ambulation. pt stated that FWW does not work and started to get agitated due to FWW and pt tends to push away and try to take steps without the walker needing mod A for steadiness. instructed pt to sit down on the chair. pt ambulated to the chair using FWW mod A but when instructed to sit down, pt became agitated and pushed the walker away and tries to walk without AD as PT holds on to pt for steadiness and safety. pt screamed at PT to let go of him and pt was about to hit PT and nurse came in. Nurse instructed pt to sit down and pt initially unable to follow but after repeated instructions. pt calmed up and positioned on the chair. call light and table placed next to pt. chair alarm put on . Talked to nurse Franci regarding pt anxiety medication due to pt's agitation. Gait Assessment Gait Gait Assistance Required: Minimum Assistance,Moderate Assistance,1 Person Assist Distance (Feet) 60 Able to Maintain Weight Bearing Status Yes During Gait Assistive Devices Assistive Device Gait Belt,Front Wheeled Walker Orthotic/Prosthetic Devices or Brace: No Gait Deviations General Gait Pattern Antalgic,Ataxic,Decreased Stride Length,Decreased Feet Clearance Factors Limiting Gait Function Factors Limiting Gait Function Decreased Activity Tolerance, Decreased Strength,Difficulty Following Directions, Incoordination,Limited Range of Motion,Poor Balance,Poor Safety Awareness M5 PT-IP Objective Assessments Start: 01/16/25 12:42 Freq: NEEDED Status: Active Protocol: Document 01/16/25 09:45 AB (Rec: 01/16/25 12:57 AB [id number]) Orientation Orientation/Cognition Level of Alertness Confusional State Orientation Name Language Function Ability Hard of Hearing Safety Awareness Decreased Safety Awareness Memory Description Short Term Impaired,Care Home Impaired Gross Range of Motion Lower Extremity ROM Assessment Within Functional Limits Strength Lower Extremity Strength Assessment Right Impaired Hip 3-/5 Knee 3+/5 Muscle Tone Muscle Tone WNL Yes M6 PT-IP Treatment Start: 01/16/25 12:42 Freq: NEEDED Status: Active Protocol: Document 01/16/25 13:55 AB (Rec: 01/16/25 18:00 AB [id number]) Physical Therapy Treatment Education Education Provided Precautions,Weight Bearing Status,Post-Op Packet,Safety M7 PT-IP Assessment and Plan Start: 01/16/25 12:42 Freq: NEEDED Status: Active Protocol: Document 01/16/25 13:55 AB (Rec: 01/16/25 18:00 AB [id number]) PT Summary Assessment and Plan Potential Rehabilitation Potential Fair Summary Impairments Pain,ROM,Strength,Balance, Coordination,Sensation,Tone, Cognition,Bed Mobility, Transfers,Gait,Activity Tolerance Progress Towards Goals Slow Progress - Other Assessment Summary pt progressing with mobility using FWW and ambulated ~ 60 ft min to mod A and max cues. pt with dx dementia affecting carryover of techniques and safety. pt will require SNF rehab to improve overall mobility independence. will continue to assess. Goals Bed Mobility Goal Standby Assistance Transfer Goal Standby Assistance,Front Wheeled Walker Gait Goal Standby Assistance,Front Wheel Walker Gait Distance 150 Days to Meet Goals 10 Frequency of Treatment Frequency Of Treatment Twice a Day Treatment Plan Physical Therapy Treatment Plan Bed Mobility Training,Transfer Training,Gait Training, Therapeutic Exercise,Balance Retraining,Post Op Education, Discharge Planning,Hot or Cold Pack,Neuromuscular Re-ed, Coordination Retraining,Manual Therapy Precautions Posterior Hip Precautions No Hip Flexion > 90 degrees,No Hip Internal Rotation,No Hip Adduction Weight Bearing Status Weight Bearing Status Weight Bear as Tolerated Allowed Weight Bearing Amount (enter % RLE WBAT or #) (%) Recommendations To Nursing Amount of Assist Needed 2 Person Assist Discharge Recommendations PT Discharge Recommendations SNF Rehab Transportation Needs at Discharge Wheelchair/Cabulance - PT assist 2
--- NOTE | 2025-01-16 14:41 | P.PN_ITS ---
Subjective Subjective Date Patient Seen: 01/16/25 Time Patient Seen: 14:42 Interval history: Pt sitting up in chair, upset about a part of his care that involved one nurse teaching another with insufficient equipment? He says he is comfortable, not having much pain. From review of notes, looks like he resides at [facility], plan is to d/c to [facility]. Exam Vital Signs (past 8 hours): - 01/16/25 07:40 01/16/25 12:30 Temperature 98.2 F Pulse Rate 62 Respiratory Rate 15 Blood Pressure 122/62 Pulse Oximetry 97 Oxygen Delivery Method Room Air Oxygen Flow Rate 0 Fraction of Inspired Oxygen 36 SaO2/FiO2 Ratio 266 Oxygen Delivery Method Room Air Oxygen Flow Rate 0 Narrative Exam Narrative: 3/5 hip flexors, quadriceps, hamstrings; 5/5 PF, DF, EHL on right. Sensation to light touch intact throughout RLE, calf soft and compressible. Pt does not want to move knee because he tells me it is broken. Aquacel dressing CDI. Objective Labs 01/16/25 04:30 01/16/25 04:30 Labs: Laboratory Results - last 24 hr 01/16/25 04:30 WBC 7.4 RBC 3.56 L Hgb 11.7 L Hct 33.7 L MCV 94.5 MCH 32.8 MCHC 34.7 RDW 14.6 Plt Count 97 L Neut % (Auto) 92.5 H Lymph % (Auto) 2.1 L Pike % (Auto) 4.3 Eos % (Auto) 0.4 L Baso % (Auto) 0.7 Neut # (Auto) 6900 Lymph # (Auto) 200 L Pike # (Auto) 300 Eos # (Auto) 0 Baso # (Auto) 100 Sodium 133 L Potassium 4.4 Chloride 102 Carbon Dioxide 26 BUN 13 Creatinine 0.64 L Estimated GFR > 60 BUN/Creatinine Ratio 20.3 Glucose 147 H Calcium 8.2 L PFSH Medical History Urinary retention Durant catheter in place Obstructive uropathy Complex renal cyst Dementia Acquired hypothyroidism Surgical History Anesthesia History of hernia repair Family History Father Cancer Mother Bronchitis Social History household members: none Smoking Status: Never smoker alcohol intake: never caffeine: Yes Assessment & Plan Post-op Assessment and plan (1) Status post hip hemiarthroplasty: Assessment and Plan narrative: 1) Weightbearing as tolerated, posterior hip precautions. 2) ASA 81mg BID x 6 weeks for VTE prophylaxis. 3) Pain control, disposition per hospitalist service. Postoperative Procedures: Procedures Operation Date: 01/15/25 16:00 <No data on this case meets the specified criteria> Postoperative day: 1
[2025-01-16] MEDS: LORazepam 0.5 MG TABLET PO ×2 (14:46→20:49)
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
[2025-01-16 15:29] VITALS: BP 149/44; PULSE 66; RESP 16; TEMP 36.8; O2SAT 97
[2025-01-16 20:00] VITALS: BP 128/56; PULSE 42; RESP 18; TEMP 36.8; O2SAT 94
[2025-01-17] MEDS: OXYCODONE IR 5 MG TABLET PO (06:14)
[2025-01-17] MEDS: ACETAMINOPHEN 325 MG TABLET 650 MG PO (06:15)
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
--- NOTE | 2025-01-17 07:54 | P.PN_ITS ---
Subjective Subjective Date Patient Seen: 01/17/25 Time Patient Seen: 07:54 Interval history: Uneventful day yesterday. Up with physical therapy Vital signs okay postop Unfortunately his Durant catheter was removed this morning upon recommendation of ortho (obviously not realizing he has significant urinary retention and that has failed multiple voiding trials and at this point requires ongoing urinary catheterization) This morning he is sitting up at the bedside chair awake alert wants to have a long discussion about his [facility] Exam Vital Signs (past 8 hours): Fraction of Inspired Oxygen 36 SaO2/FiO2 Ratio 266 Oxygen Delivery Method Room Air Oxygen Flow Rate 0 Objective Labs 01/16/25 04:30 01/16/25 04:30 [facility] Medical History Urinary retention Durant catheter in place Obstructive uropathy Complex renal cyst Dementia Acquired hypothyroidism Surgical History Anesthesia History of hernia repair Family History Father Cancer Mother Bronchitis Social History household members: none Smoking Status: Never smoker alcohol intake: never caffeine: Yes Assessment & Plan Assessment & Plan narrative: 1. Postop day 2 Status post ORIF right unipolar hip replacement due to fracture- continue postoperative management as per Orthopedic surgery 2. 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 Certainly would not want to send him to [place] [facility] without Durant catheter in place. When patient is more fully recovered from his hip fracture and surgery to repair, he should be redirected to Urology to consider other options such as suprapubic catheter placement or least do urodynamics to see if something like some version of a prostate removal surgery will relieve his obstruction and correct his urinary retention, or not. 3. Dementia-continue to monitor for agitation etcetera. Thus far doing quite well actually with some minimal behavioral changes 4. VTE prophylaxis-as per Orthopedic surgery, currently aspirin 81 mg b.i.d. for 6 weeks 5. Disposition-to [place] [facility], presume tomorrow the 18 of January per care management team Time-Based Coding :: [TOTAL MINUTES] spent with patient and on the chart (including review of chart, obtaining history, exam, reviewing outside data, placing orders, documenting exam and treatment plan, and counseling patient) on [DATE]. PROFEE President And Cmo Document charge(s): Yes Charge Codes Subsequent inpatient/observation care: [id number]
--- NOTE | 2025-01-17 08:08 | PM.PNPO.1 ---
Subjective Subjective Interval history: Patient's pain is controlled with oral medication. ?Pain is localized to surgical site. ?Patient declines any new numbness or tingling at the surgical extremity. ?Patient denies any shortness of breath, dizziness, light-headedness, nausea, vomiting, fever or chills. Exam Vital Signs (past 8 hours): Fraction of Inspired Oxygen 36 SaO2/FiO2 Ratio 266 Oxygen Delivery Method Room Air Oxygen Flow Rate 0 Narrative Exam Narrative: 5/5 strength in hip flexors, quadriceps, hamstrings, DF, PF, EHL bilaterally. Sensation to light touch intact throughout BLE. Calves soft, compressible, nontender. Dressing placed intraoperatively CDI. Resp Effort & Inspection: normal respiratory effort and able to speak in complete sentences Objective Labs 01/16/25 04:30 01/16/25 04:30 [facility] Medical History Urinary retention Durant catheter in place Obstructive uropathy Complex renal cyst Dementia Acquired hypothyroidism Surgical History Anesthesia History of hernia repair Family History Father Cancer Mother Bronchitis Social History household members: none Smoking Status: Never smoker alcohol intake: never caffeine: Yes Assessment & Plan Post-op Postoperative Procedures: Procedures Operation Date: 01/15/25 16:00 Actual Procedure Side Surgeon p Hip posterior unipolar cemented Right Radha Talbot MD Postoperative day: 2 Postoperative status: doing well Postoperative plan: routine post-op care and ambulate Postoperative plan narrative: Ready for discharge. Remove Durant today. Posterior Hip Pre-cautions. Ambulate and weight bear as tolerated with assistive devices. Aspirin 81 mg twice a day for 6 weeks for DVT prevention. Baseline pain relief with acetaminophen 500mg every 4 hours as needed and ibuprofen 400 mg every 4 hours as needed. Patient has been prescribed oxycodone 5 mg every 4 hours as needed for breakthrough pain. Initiate physical therapy in the next 5-10 days. Keep dressing clean and dry. Keep dressing on until first office visit. If dressing becomes dirty or disrupted, replace with appropriate sized dressing. Follow up in clinic in 2 weeks for wound check. Contact clinic if there are any questions or concerns. Time Spent With Patient Time with patient: less than 15 minutes Quality VTE Deep Vein Thrombosis/Pulmonary Embolism Present on Admission: No
[2025-01-17] MEDS: DOCUSATE 100 MG CAPSULE PO (08:13)
[2025-01-17] MEDS: IBUPROFEN 400 MG TABLET PO ×2 (08:13→13:50)
[2025-01-17] MEDS: ASPIRIN EC 81 MG TABLET PO (08:13)
[2025-01-17] MEDS: CIPROFLOXACIN 250 MG TABLET 500 MG PO (08:13)
--- NOTE | 2025-01-17 11:42 | PC.NURSE ---
Day shift- Pt so far is confused and impulsive. 5 times this morning he has tried to get up, looking for his son. However Pt is easily redirected and cooperative to sit in chair. Pt has responded well to taking time to listen to him tell stories from past. Pt has had very minimal pain, and is ambulating quite well. He has now been napping since 1120.
--- NOTE | 2025-01-17 11:55 | PT.IPTN ---
Current Diagnoses Fracture of unspecified part of neck of right femur, initial encounter for closed fracture (01/15/25) Unspecified intracapsular fracture of right femur, initial encounter for closed fracture (01/15/25) Presence of unspecified artificial hip joint (01/15/25) Surgery Performed Operation Date: 01/15/25 16:00 Actual Procedures p Hip posterior unipolar cemented(Right) - Radha Talbot MD Physical Therapy Treatment Note M2 PT-IP Current Condition Start: 01/16/25 12:42 Freq: NEEDED Status: Active Protocol: Document 01/16/25 09:45 AB (Rec: 01/16/25 12:57 AB [id number]) Physical Therapy Current Condition Current Condition Evaluation Date 01/16/25 Treatment Diagnosis s/p R hip hemiarthroplasty; difficulty in walking Onset Date 01/15/25 M3 PT-IP Subjective Start: 01/16/25 12:42 Freq: NEEDED Status: Active Protocol: Document 01/17/25 11:55 AB (Rec: 01/17/25 13:23 AB [id number]) Subjective Physical Therapy Visit Type Type Treatment Note Visit Start Time 11:55 Visit Stop Time 12:05 Number of OBSTETRICS SPECIALIST Visits 0 M4 PT-IP Mobility and Gait Start: 01/16/25 12:42 Freq: NEEDED Status: Active Protocol: Document 01/17/25 11:55 AB (Rec: 01/17/25 13:23 AB [id number]) PT-Bed Mobility Assessment Supine to Sit Supine to Sit Standby Assistance PT-Transfer Assessment Sit to and From Stand Sit to and from Stand Minimal Assistance,1 Person Assistance,Use of Upper Extremities Equipment Transfer Assistive Device Gait Belt Orthotic/Prosthetic Devices or Brace: No Transfers Transfer Destination Chair Transfer Technique ambulated Transfer Ability Level of Assist Minimal Assistance,1 Person Assistance,Use of Upper Extremities Comments Mobility Comments pt in bed and agreeable to do PT. pt continues to have confusion but not agitated. supine to sit SBA. able to sit on EOB SBA. opted to do SEM MANAGER today due to pt's agitation with use of FWW yesterday. completed sit to stand min A and cues. ambulated in the hallway SEM MANAGER min A and cues for safety. pt able to be redirected but required increase cues for safety. pt ambulated towards the sink. Left pt with OT. OT took over pt's care. Gait Assessment Gait Gait Assistance Required: Minimum Assistance Distance (Feet) 300 Able to Maintain Weight Bearing Status Yes During Gait Assistive Devices Assistive Device None,Gait Belt Orthotic/Prosthetic Devices or Brace: No Gait Deviations General Gait Pattern Antalgic,Decreased Stride Length,Decreased Feet Clearance Factors Limiting Gait Function Factors Limiting Gait Function Decreased Activity Tolerance, Decreased Strength,Difficulty Following Directions,Limited Range of Motion,Poor Balance, Poor Safety Awareness M5 PT-IP Objective Assessments Start: 01/16/25 12:42 Freq: NEEDED Status: Active Protocol: Document 01/16/25 09:45 AB (Rec: 01/16/25 12:57 AB [id number]) Orientation Orientation/Cognition Level of Alertness Confusional State Orientation Name Language Function Ability Hard of Hearing Safety Awareness Decreased Safety Awareness Memory Description Short Term Impaired,Snf Impaired Gross Range of Motion Lower Extremity ROM Assessment Within Functional Limits Strength Lower Extremity Strength Assessment Right Impaired Hip 3-/5 Knee 3+/5 Muscle Tone Muscle Tone WNL Yes M6 PT-IP Treatment Start: 01/16/25 12:42 Freq: NEEDED Status: Active Protocol: Document 01/17/25 11:55 AB (Rec: 01/17/25 13:23 AB [id number]) Physical Therapy Treatment Education Education Provided Safety M7 PT-IP Assessment and Plan Start: 01/16/25 12:42 Freq: NEEDED Status: Active Protocol: Document 01/17/25 11:55 AB (Rec: 01/17/25 13:23 AB [id number]) PT Summary Assessment and Plan Potential Rehabilitation Potential Fair Summary Impairments Pain,ROM,Strength,Balance, Coordination,Sensation, Cognition,Bed Mobility, Transfers,Gait,Activity Tolerance Progress Towards Goals Slow Progress - Other Assessment Summary pt requiring min A with ambulation SEM MANAGER. pt with dx of dementia and easily gets agitated. opted to provide SEM MANAGER today instead of using a FWW since pt got agitated with use of FWW yesterday. pt will require 24/7 assist and unable to recall and adhere with posterior hip precautions . Goals Bed Mobility Goal Standby Assistance Transfer Goal Standby Assistance Gait Goal Standby Assistance Gait Distance 150 Other Goals ambulation providing SEM MANAGER Days to Meet Goals 10 Frequency of Treatment Frequency Of Treatment Once a Day Treatment Plan Physical Therapy Treatment Plan Bed Mobility Training,Transfer Training,Gait Training, Therapeutic Exercise,Balance Retraining,Post Op Education, Discharge Planning,Hot or Cold Pack,Neuromuscular Re-ed, Coordination Retraining,Manual Therapy Precautions Posterior Hip Precautions No Hip Flexion > 90 degrees,No Hip Internal Rotation,No Hip Adduction Weight Bearing Status Weight Bearing Status Weight Bear as Tolerated Allowed Weight Bearing Amount (enter % RLE WBAT or #) (%) Recommendations To Nursing Amount of Assist Needed 1 Person Assist Discharge Recommendations PT Discharge Recommendations Home with 26/04 Assist Available,Home Health,SNF Rehab Transportation Needs at Discharge Wheelchair/Cabulance - PT assist 1
--- NOTE | 2025-01-17 12:08 | OT.IP.TRT ---
Current Diagnoses Fracture of unspecified part of neck of right femur, initial encounter for closed fracture (01/15/25) Unspecified intracapsular fracture of right femur, initial encounter for closed fracture (01/15/25) Presence of unspecified artificial hip joint (01/15/25) Surgery Performed Operation Date: 01/15/25 16:00 Actual Procedures p Hip posterior unipolar cemented(Right) - Radha Talbot MD Occupational Therapy Treatment Note M2 OT-IP Current Condition Start: 01/16/25 11:16 Freq: Status: Active Protocol: Document 01/16/25 11:17 [facility] (Rec: 01/16/25 11:33 [facility] Desktop) Occupational Therapy Current Condition Current Condition Evaluation Date 01/16/25 Treatment Diagnosis S/P Right ORIF with unipolar, posterior approach Post Operative Precautions Posterior Hip Precautions No Hip Flexion > 90 degrees,No Hip Internal Rotation,No Hip Adduction M3 OT- IP Subjective and Pain Start: 01/16/25 11:16 Freq: Status: Active Protocol: Document 01/17/25 12:46 [facility] (Rec: 01/17/25 12:53 [facility] Desktop) OT- Subjective Occupational Therapy Visit Type Type Treatment Note Visit Start Time 12:00 Visit Stop Time 12:08 Occupational Therapy Visit Comments Patient Comments Pt agreed to get up to walk around and agreed to brush his teeth. OT Pain Assessment Pain When Pain Assessed At Rest Pain Present Pain Present Denied Pain M4 OT- IP ADL's Start: 01/16/25 11:16 Freq: Status: Active Protocol: Document 01/17/25 12:46 [facility] (Rec: 01/17/25 12:53 [facility] Desktop) OT HBJ-Yegk-Gusjebf Comments OT Self-Feeding Comments Not at meal time. OT ADL-Grooming General Evaluation Grooming Ability Standby Assistance Areas Needing Assistance Retrieving/Set-up of Grooming Items Comments OT Grooming Comments Able to do while standing at the sink. OT ADL-Oral Care General Eval Oral Care Ability Standby Assistance Areas of Assistance Retrieving/Set-Up of Items Comments Oral Care Comments Able to do while standing at the sink. OT ADL-Dressing General Eval Lower Body Dressing Ability Maximum Assistance OT ADL-Toileting General Evaluation Toileting Ability Total Assistance Areas Needing Assistance Empty Catheter or Colostomy Comments OT Toileting Comments Durant OT ADL-Bathing Comments OT Bathing Comments Pt will need use of shower chair and assist. M5 OT- IP IADL's Start: 01/16/25 11:16 Freq: Status: Active Protocol: Document 01/16/25 11:17 [facility] (Rec: 01/16/25 11:33 [facility] Desktop) OT-Instrumental Activities of Daily Living Deficits IADL Deficits Identified Deficits Home Safety Awareness Awareness of Need for Assistance at Home Decreased Awareness Ability to Problem Solve Emergency Unable to Problem Solve Situations Medication Management Medication Management Caregiver Administers Money Management Money Management Caregiver Provides Assistance Meal Preparation Meal Preparation Caregiver Provides Assist Floor Plan Adjuster Floor Plan Adjuster Caregiver Provides Assist M6 OT- IP Functional Cognition Start: 01/16/25 11:16 Freq: Status: Active Protocol: Document 01/17/25 12:46 [facility] (Rec: 01/17/25 12:53 [facility] Desktop) Cognitive Factors Limiting Selfcare Function Cognitive Ability Level of Alertness Alert,Confusional State Patient Orientation Name Attention Span Ability Unable to Focus,Unable to Sustain Attention Ability to Follow Commands Able to Follow One Step Commands with Increased Time, Able to Follow One Step Commands with Repetition Memory Description Short Term Impaired,Working Impaired Safety Awareness Decreased Recall of Precautions,Decreased Ability to Apply Precautions, Underestimates Need for Assistance Cognitive Comments Cognitive Assessment Comments Pt just orientated to his name . Pt able to follow concrete commands today for ADL and mobility needs. Pt unable to state his hip precautions. M7 OT- IP Mobility and Balance Start: 01/16/25 11:16 Freq: Status: Active Protocol: Document 01/17/25 12:46 [facility] (Rec: 01/17/25 12:53 [facility] Desktop) OT- Bed Mobility Assessment Supine to Sit Supine to Sit Assist Standby Assistance OT-Transfer Assessment Sit to and From Stand Sit to and from Stand Minimal Assistance Transfers Transfer Ability Minimal Assistance Devices Transfer Assistive Devices None,Gait Belt Comments Mobility Comments Pt able to get out of bed with SBA. YASMIN to stand and hand held assist to walk in the room and hallway. OT- Balance Assessment Sitting Balance and Reactions Static Sitting Balance Ability Good Dynamic Sitting Balance Ability Good Standing Balance and Reactions Static Standing Balance Ability Fair Dynamic Standing Balance Ability Fair M8 OT- IP Objective Assessments Start: 01/16/25 11:16 Freq: Status: Active Protocol: Document 01/16/25 11:17 [facility] (Rec: 01/16/25 11:33 [facility] Desktop) OT Gross Range of Motion Upper Extremity Range of Motion Assessment Within Functional Limits OT Strength Comments Strength Comments BUE 4/5 grossly M9 OT- IP Assessment and Plan Start: 01/16/25 11:16 Freq: Status: Active Protocol: Document 01/17/25 12:46 [facility] (Rec: 01/17/25 12:53 [facility] Desktop) OT Summary Assessment and Plan Potential Rehabilitation Potential Good Analytic Complexity at Evaluation Moderate Summary OT Impairments Pain,Strength,Balance, Functional Cognition, Functional Mobility,Self- Feeding,Grooming,Dressing, Toileting,Bathing,Toilet Transfers,Shower Transfers, Activity Tolerance Progress Towards Goals Progressing Toward Goals Assessment Summary Pt able to walk around in the room with hand held assist. Pt is unaware of his surgery or hip precautions. Pt will benefit from skilled rehab versus 24/7 assist and home health. Goals Self-Feeding Goal Independent Grooming Goal Independent Dressing Goal Moderate Assistance Toileting Goal Standby Assistance Bathing Goal Minimal Assistance Toilet Transfer Goal Standby Assistance Shower Transfer Goal Standby Assistance Days to Meet Goals 18 Frequency of Treatment Other frequency 5x/week Treatment Plan OT Treatment Plan ADL Training,Functional Mobility,Patient/Family Education,Discharge Planning Discharge Recommendations OT Discharge Recommendations SNF Rehab Other Discharge Recommendations if not able to go to SNF, home with 24/7 assist and home health Transportation Needs at Discharge Wheelchair/Cabulance
[2025-01-17] MEDS: FINASTERIDE 5 MG TABLET PO (12:11)
[2025-01-17] MEDS: TAMSULOSIN 0.4 MG CAPSULE 0.8 MG PO (12:11)
[2025-01-17] MEDS: CITALOPRAM 10 MG TABLET 20 MG PO (12:11)
[2025-01-17] MEDS: LORazepam 0.5 MG TABLET PO (13:50)
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
[2025-01-17] MEDS: HALOPERIDOL 5 MG/ML VIAL IM (16:07)
[2025-01-17] MEDS: LORazepam 2 MG/ML INJ 1 MG IV (16:26)
[2025-01-17] MEDS: LORazepam 2 MG/ML INJ 1 MG IM ×2 (16:44→18:21)
--- NOTE | 2025-01-17 18:34 | PC.NURSE ---
Event Note At approximately 1530 patient attempted to get out of bed. Patient refusing to use gait belt, walker or wheelchair to assist in ambulation. Patient continued to walk out of his room. This RN and [facility] PCT followed patient into hallway with wheelchair and walker for assistance. Patient unsteady on feet, this RN and PCT attempted contact with patient for assistance with stabilization. Patient yelling at staff not to touch him and pushing staff away with arms. This RN called confectionery makerADDISON Mckeon for assistance. Patient began to loose balance and staff attempted to stabilize patient with contact. Patient yelled at staff don't touch me reached for garcia cather bag and ripped garcia catheter bag off with garcia catheter. Patient then threw bag in hallway and started to loose balance. PCT Randy attempted to stabilize patient by placing hand on back and patient grabbed and swing at [facility] and hit [facility] several times. Patient also yelled at this PCT and RN why don't you just go back to your country. This RN then instructed [facility] to step back and keep hands off patient and this RN yelled at floor staff to call a mauri meade. Patient then ambulated towards exit in ICU by staircase. This RN stood by patient for safety and patient agreed to sit in wheelchair. Care of patient was then overtaken by rotogravure press operatorADDISON Mckeon and Director Zahida Taylor. This RN called MD Hinton to update on patient status, TVORB was given and administered per DEC. Post PRN medication administered patient with continued agitation, attempting to hit staff, swearing and yelling at staff and continued attempts to get out of bed. MD Murillo called to update on patient condition and new TVORB received and administered per DEC. Patient at present resting comfortably in bed with sitter ADDISON Menendez at bedside.
[2025-01-17 19:05] VITALS: BP 112/61; PULSE 80; RESP 16; TEMP 36.9; O2SAT 92
[2025-01-17] MEDS: SODIUM CHLORIDE 0.9% FLUSH 10 ML IV (21:27)
--- NOTE | 2025-01-18 00:24 | PC.NURSE ---
Addendum entered by Cori Martin R.N. 01/18/25 04:26: Medicated with Tylenol + oxycodone crushed with applesauce. Remains calm at this time. Addendum entered by Cori Martin R.N. 01/18/25 04:25: Patient has awoke several times complaining of pain in hip but falls asleep almost right away. Since he has done this several times now, HOB elevated and given sips of water which he took with minimal coughing/choking. FLACC of 4 so medicated Original Note: Patient has been mostly sedated tonight after receiving Lorazepam toward end of previous shift. He does respond to stimuli with moans but no other verbalization. Breath sounds coarse and has an occasional cough and RA sat has been mostly 92% although occasionally drops because he is a mouth breather. HRR but noted on monitor to occasionally drop down into upper 30's but is not sustained. BT hypoactive and abdomen is soft. Has a chronic indwelling catheter related to retention. Is being repositioned q2h tonight as is not turning himself. Does have reddened/blanchable skin to left elbow. Aquacel dressing to right hip is CDI. Gait not assessed at this time. He does not appear to be in any discomfort and has a FLACC of 0. Is being monitored 1:1 due to past behaviors. Bilateral calf SCD's applied at time of assessment. Fall risk score is high and bed alarm is activated.
--- NOTE | 2025-01-18 03:47 | PC.NURSE ---
Patient woke up slightly and was able to communicate pain in surgical hip, before falling back asleep. Tried to keep Pt awake enough to ask if he wanted pain meds, water, or a snack, But pt cant stay awake long enough/be A&O to respond or take anything PO. This has happened three times now in the last 30 min, RN has been notified.
[2025-01-18] MEDS: OXYCODONE IR 5 MG TABLET PO ×2 (04:17→21:50)
[2025-01-18] MEDS: ACETAMINOPHEN 325 MG TABLET 650 MG PO ×2 (04:21→10:43)
[2025-01-18 05:07] LABS: Add Manual Diff / Slide Review NO; Basophils Absolute Auto 0 /uL (0-100); Basophils Percent Auto 0.2 % (0-2); Eosinophils Absolute Auto 100 /uL (0-450); Eosinophils Percent Auto 2.4 % (2-4); Hematocrit 30.8 % (41-53); Hemoglobin 10.8 g/dL (13.5-17.5); Lymphocytes Absolute Auto 1100 /uL (1100-4500); Lymphocytes Percent Auto 18.9 % (25-40); Mean Corpuscular HGB Conc 35.2 % (30-36); Mean Corpuscular Hemoglobin 33.1 PG (26-34); Mean Corpuscular Volume 94.2 fL (80-100); Monocytes Absolute Auto 600 /uL (0-900); Neutrophils Absolute Auto 4100 /uL (1500-7000); Neutrophils Percent Auto 68.5 % (50-75); Platelet Count 101 X10^3/uL (150-400); Red Blood Cell Count 3.27 X10^6/uL (4.5-5.9); Red Cell Distribution Width 14.7 % (11.6-14.8)
[2025-01-18 05:14] LABS: Alanine Aminotransferase 24 IU/L (<50); Albumin 3.3 g/dL (3.5-5.0); Albumin Globulin Ratio 1.4 (1.0-2.8); Alkaline Phosphatase 38 U/L (38-126); Aspartate Aminotransferase 70 IU/L (17-59); BUN Creatinine Ratio 21.5 (6-22); Bilirubin Total 0.5 mg/dL (0.2-1.3); Blood Urea Nitrogen 17 mg/dL (9-20); Calcium 8.2 mg/dL (8.4-10.2); Carbon Dioxide 30 mmol/L (22-32); Chloride 101 mmol/L (98-107); Estimated Glomerular Filt Rate > 60 mL/min (>60); Globulin 2.4 g/dL (1.7-4.1); Glucose 103 mg/dL (80-110); HEMOLYSIS < 15 (0-50); Potassium 3.9 mmol/L (3.4-5.1); Sodium 133 mmol/L (137-145); Total Protein 5.7 g/dL (6.3-8.2)
--- NOTE | 2025-01-18 07:00 | DI.RAD.S_ITS ---
PROCEDURE: XR CHEST 1V INDICATIONS: R/O aspiration TECHNIQUE: One view of the chest was acquired. COMPARISON: [facility], CR, XR CHEST 1V, 01/15/2025, 2:17. FINDINGS: Heart, mediastinum and pulmonary vascular: Heart is normal in size and configuration. Mediastinum is unremarkable. Pulmonary vascular is normal. Lungs: Small right and tiny left basilar infiltrates have developed Pleural spaces: Normal-no effusions or pneumothorax. Bones and soft tissues: Normal IMPRESSION: Small right basilar and tiny left basilar infiltrates. Dictated by: Estaurdo Alberto M.D. on 01/18/2025 at 11:48 Approved by: Estuardo Alberto M.D. on 01/18/2025 at 11:49
--- NOTE | 2025-01-18 07:40 | P.PN_ITS ---
Subjective Subjective Date Patient Seen: 01/18/25 Time Patient Seen: 07:40 Interval history: Patient became increasingly agitated through the course of the day yesterday. Was at 1 point up ambulating and tried to leave the hospital. He eventually required haloperidol plus lorazepam to sedate him enough to get him back to bed Overnight has been quite somnolent. Awakens at times complaining of pain in the hip (of course he was up walking on it earlier in the day) Vital signs otherwise stable some bradycardia overnight which has been seen on prior cardiac monitoring This morning patient is a little bit somnolent but arouses easily he does seem to have minimal recollection of the events of yesterday afternoon. No complaints at this time of any pain or other issues. Exam Vital Signs (past 8 hours): Fraction of Inspired Oxygen 36 SaO2/FiO2 Ratio 266 Oxygen Delivery Method Room Air Oxygen Flow Rate 0 Objective Labs 01/18/25 04:20 01/18/25 04:20 Labs: Laboratory Results - last 24 hr 01/18/25 04:20 WBC 6.0 RBC 3.27 L Hgb 10.8 L Hct 30.8 L MCV 94.2 MCH 33.1 MCHC 35.2 RDW 14.7 Plt Count 101 L Neut % (Auto) 68.5 D Lymph % (Auto) 18.9 L Carl[place] % (Auto) 10.0 Eos % (Auto) 2.4 Baso % (Auto) 0.2 Neut # (Auto) 4100 Lymph # (Auto) 1100 [place] # (Auto) 600 Eos # (Auto) 100 Baso # (Auto) 0 Sodium 133 L Potassium 3.9 Chloride 101 Carbon Dioxide 30 BUN 17 Creatinine 0.79 Estimated GFR > 60 BUN/Creatinine Ratio 21.5 Glucose 103 Calcium 8.2 L Total Bilirubin 0.5 AST 70 H ALT 24 Alkaline Phosphatase 38 Total Protein 5.7 L Albumin 3.3 L Globulin 2.4 Albumin/Globulin Ratio 1.4 [facility] Medical History Urinary retention Duarnt catheter in place Obstructive uropathy Complex renal cyst Dementia Acquired hypothyroidism Surgical History Anesthesia History of hernia repair Family History Father Cancer Mother Bronchitis Social History household members: none Smoking Status: Never smoker alcohol intake: never caffeine: Yes Assessment & Plan Assessment & Plan narrative: 1. Postop day 3 Status post ORIF right unipolar hip replacement due to fracture- continue postoperative management as per Orthopedic surgery 2. 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 He will be discharged from hospital with Durant catheter in place 3. Dementia-became quite agitated yesterday. Not surprising giving his underlying dementia. Placed on olanzapine on a scheduled basis received lorazepam and haloperidol yesterday. Still somewhat somnolent. See if we can get away with just the olanzapine, and maybe some intermittent dosing of haloperidol today. Certainly would prefer to avoid using lorazepam 4. VTE prophylaxis-as per Orthopedic surgery, currently aspirin 81 mg b.i.d. for 6 weeks 5. Disposition-to longterm, when stable. Unlikely facility will accept him today after his agitation, and need for lorazepam yesterday. Clearly patient will need memory care when discharge from longterm given his dementia and his activities with this hospitalization etcetera. He has also been found wandering outside the facility prior to his fall and hip fracture etcetera. Clearly he would benefit from a safety and care standpoint in a controlled memory care type facility Time-Based Coding :: [TOTAL MINUTES] spent with patient and on the chart (including review of chart, obtaining history, exam, reviewing outside data, placing orders, documenting exam and treatment plan, and counseling patient) on [DATE]. Quality VTE Deep Vein Thrombosis/Pulmonary Embolism Present on Admission: No PROFEE Thermal Surfacing Machine Operator Document charge(s): Yes Charge Codes Subsequent inpatient/observation care: [id number]
--- NOTE | 2025-01-18 08:05 | PM.PNPO.1 ---
Subjective Subjective Date Patient Seen: 01/18/25 Time Patient Seen: 08:05 Interval history: Pt sleeping, awakens easily to voice. Appropriate on questioning, not at all agitated. Denies pain, says he has been walking a little with PT. Exam Vital Signs (past 8 hours): Fraction of Inspired Oxygen 36 SaO2/FiO2 Ratio 266 Oxygen Delivery Method Room Air Oxygen Flow Rate 0 Narrative Exam Narrative: 5/5 strength in hip flexors, quadriceps, hamstrings, DF, PF, EHL on right. Sensation to light touch intact throughout RLE, calf soft and compressible. Aquacel dressing CDI. Objective Labs 01/18/25 04:20 01/18/25 04:20 Labs: Laboratory Results - last 24 hr 01/18/25 04:20 WBC 6.0 RBC 3.27 L Hgb 10.8 L Hct 30.8 L MCV 94.2 MCH 33.1 MCHC 35.2 RDW 14.7 Plt Count 101 L Neut % (Auto) 68.5 D Lymph % (Auto) 18.9 L Dougherty % (Auto) 10.0 Eos % (Auto) 2.4 Baso % (Auto) 0.2 Neut # (Auto) 4100 Lymph # (Auto) 1100 [place] # (Auto) 600 Eos # (Auto) 100 Baso # (Auto) 0 Sodium 133 L Potassium 3.9 Chloride 101 Carbon Dioxide 30 BUN 17 Creatinine 0.79 Estimated GFR > 60 BUN/Creatinine Ratio 21.5 Glucose 103 Calcium 8.2 L Total Bilirubin 0.5 AST 70 H ALT 24 Alkaline Phosphatase 38 Total Protein 5.7 L Albumin 3.3 L Globulin 2.4 Albumin/Globulin Ratio 1.4 PFS Medical History Urinary retention Durant catheter in place Obstructive uropathy Complex renal cyst Dementia Acquired hypothyroidism Surgical History Anesthesia History of hernia repair Family History Father Cancer Mother Bronchitis Social History household members: none Smoking Status: Never smoker alcohol intake: never caffeine: Yes Assessment & Plan Post-op Assessment and plan (1) Status post hip hemiarthroplasty: Assessment and Plan narrative: 1) Weightbearing as tolerated, posterior hip precautions. 2) ASA 81mg BID x 6 weeks for VTE prophylaxis. 3) Pain control, disposition per hospitalist service. Postoperative Procedures: Procedures Operation Date: 01/15/25 16:00 Actual Procedure Side Surgeon p Hip posterior unipolar cemented Right Radha Talbot MD Postoperative day: 3 Quality VTE Deep Vein Thrombosis/Pulmonary Embolism Present on Admission: No
[2025-01-18 08:30] VITALS: PULSE 62; RESP 18; O2SAT 96
[2025-01-18] MEDS: ASPIRIN EC 81 MG TABLET PO ×2 (10:43→21:50)
[2025-01-18] MEDS: TAMSULOSIN 0.4 MG CAPSULE 0.8 MG PO (10:44)
[2025-01-18] MEDS: DOCUSATE 100 MG CAPSULE PO ×2 (10:44→21:50)
[2025-01-18] MEDS: FINASTERIDE 5 MG TABLET PO (10:44)
[2025-01-18] MEDS: CITALOPRAM 10 MG TABLET 20 MG PO (10:44)
[2025-01-18] MEDS: SODIUM CHLORIDE 0.9% FLUSH 10 ML IV ×2 (10:44→21:52)
--- NOTE | 2025-01-18 10:55 | CM.DPC ---
Reviewed EMR and team rounds for status updates. Pt will plan to d/c to [facility] tomorrow, 01/19, if he remains stable and does not require any PRN Seroquel or Ativan for the next 24-hours. If needed, he could be switched to scheduled dosing, which would not effect his ability for admission. Will f/u again with [facility] in the am to confirm plan.
[2025-01-18 13:37] VITALS: BP 117/68; PULSE 71; RESP 18; TEMP 37.1; O2SAT 97
--- NOTE | 2025-01-18 13:53 | PT-IP ANOTE ---
Pt sleeping, not able to participate in PT at this time.
--- NOTE | 2025-01-18 13:58 | OT.IPNOTE ---
Pt asleep x2 when checking on pt for OT treatment.
[2025-01-18 20:32] VITALS: BP 126/88; PULSE 86; RESP 18; TEMP 36.6; O2SAT 94
[2025-01-18] MEDS: OLANZapine 2.5 MG TABLET PO (21:50)
--- NOTE | 2025-01-19 08:28 | PM.DS.IH.1 ---
History of Present Illness History of Present Illness Date Patient Seen: 01/19/25 Time Patient Seen: 08:28 Chief complaint: GLF with hip pain Narrative: 84-year-old male with worsening dementia who somewhat recently was placed in assisted living because of his ongoing cognitive issues apparently fell from bed and complained immediately of right-sided hip/groin pain. He was transported to [facility] Emergency Department where right-sided hip fracture was identified on imaging and he was admitted for surgical repair Past history includes the dementia, hypothyroidism (in the past not currently requiring thyroid replacement therapy) and lower urinary tract symptoms due to BPH, and has a required chronic catheterization due to bladder outlet obstructive issues, followed by Urology at [facility] Discharge Providers Provider Date of admission: 01/15/25 02:38 Discharge Date: 01/19/25 Primary care physician: Estuardo Hinton MD Consults: 01/15/25 02:17 Consult to General Surgery Stat Comment: Consulting Provider: Radha Talbot Reason for consultation: hip fracture Has provider been notified: Yes 01/15/25 07:48 Consult to Physician Routine Comment: Consulting Provider: Radha Talbot Reason for consultation: Hip fracture Has provider been notified: Yes 01/15/25 17:35 Consult to Anesthesiology Routine Comment: Consulting Provider: Anesthesiologist Reason for consultation: Regional block for post operative pain control 01/15/25 21:29 Consult to Discharge Planning Routine Comment: Consult to Occupational Therapy Evaluate & Treat Comment: Physician Instructions: Evaluate and treat Consult to Physical Therapy Evaluate & Treat Comment: Physician Instructions: post op DMITRI protocol Discharge provider: Estuardo Hinton MD Summary Hospital Course Discharge Diagnosis: 1. Closed right hip fracture status post ORIF January 15, 2025 2. Dementia with mild agitation 3. Acquired hypothyroidism 4. Urinary retention with inability to void 5. Chronic urinary catheterization Hospital Course: As above patient was admitted after falling in finding to have sustained a right femoral/hip fracture. He was taken to the OR by Orthopedic surgery who repaired his fracture. He did well postoperatively and in fact in part because of his dementia was up and about on his hip. Patient initially had no issues with his behavior due to his dementia. However as he had done in the outpatient setting eventually became a little bit agitated wanted to leave the building but was prevented from doing so. He did initially require some doses of haloperidol as well as lorazepam but that was a 1 time event only. He was continued on olanzapine following this episode and he had no further significant agitation. Clearly he will need to be placed in memory care facility when he completes his rehab for his hip fracture and ORIF Patient will need to have chronic urinary catheterization because of his inability to empty his bladder on his own. For the moment that has a urethral catheter but as an outpatient further discussions can be held with the urology regarding other potential options including suprapubic catheter etcetera Status at Discharge Cognitive/behavioral status at discharge: at baseline, confused Functional status at discharge: uses cane/walker Overall status at discharge: patient is progressing back to baseline Time Spent with Patient Time spent: Greater than 30 minutes Exam Vital Signs (past 8 hours): Fraction of Inspired Oxygen 36 SaO2/FiO2 Ratio 266 Oxygen Delivery Method Room Air Oxygen Flow Rate 0 Objective Labs 01/18/25 04:20 01/18/25 04:20 PFS Medical History Urinary retention Durant catheter in place Obstructive uropathy Complex renal cyst Dementia Acquired hypothyroidism Surgical History Anesthesia History of hernia repair Family History Father Cancer Mother Bronchitis Social History household members: none Smoking Status: Never smoker alcohol intake: never caffeine: Yes Discharge Assessment & Plan Assessment and Plan Plan of Treatment: Patient will need ongoing group home care for rehabilitation after his surgery for his fractured hip Once he was completed his rehabilitation he will need to be placed in a memory care facility due to his ongoing dementia with mild behavioral disturbance (he had walked out of the previous assisted living facility multiple times prior to falling as above) Discharge Plan Discharge Plan Patient Disposition: SNF Transfer to: [facility] Consult as needed: Dental, Hearing, Mental health, Podiatry and Vision Discharge orders & Medications Prescriptions: New aspirin 81 mg Tablet,Delayed Release (Dr/Ec) 81 mg PO BID Qty: 112 0RF Rx Instructions: Stop date is 02/26/2025 polyethylene glycol 3350 17 gram Powder In Packet 17 g PO DAILY PRN (Reason: Constipation) Qty: 30 0RF oxycodone 5 mg Tablet 5 mg PO Q3H PRN (Reason: Pain, Moderate (4-6)) Qty: 15 0RF olanzapine 2.5 mg Tablet 2.5 mg PO BEDTIME Qty: 30 0RF Continued citalopram 20 mg tablet 20 mg PO DAILY Qty: 90 3RF magnesium hydroxide [Milk of Magnesia] 400 mg/5 mL Suspension 400 mg PO PRN PRN (Reason: Constipation) acetaminophen tablet 650 mg PO PRN PRN (Reason: pain/fever) finasteride 5 mg tablet 5 mg PO DAILY Qty: 90 3RF tamsulosin 0.4 mg capsule 0.8 mg PO DAILY Qty: 180 3RF Discontinued ciprofloxacin HCl 500 mg tablet 500 mg PO BID lorazepam [Ativan] 0.5 mg Tablet 0.5 mg PO Q4HR PRN (Reason: Agitation) Follow up/Referrals: Estuardo Hinton MD [Primary Care Provider] - Discharge Health Status Multidrug resistant organism: No MDRO Precautions: [place] Diet/Activity/Treatments Diet: Diet as Tolerated Liquid consistency: Normal/Thin Food texture: Regular Visit Report/Discharge Packet Stand Alone Forms: Patient Portal/API Discharge Data Primary Care Provider: Estuardo Hinton Quality VTE Deep Vein Thrombosis/Pulmonary Embolism Present on Admission: No IH PROFEE Charge Codes Discharge inpatient/observation: [id number]
[2025-01-19] MEDS: DOCUSATE 100 MG CAPSULE PO ×2 (09:18→21:19)
[2025-01-19] MEDS: TAMSULOSIN 0.4 MG CAPSULE 0.8 MG PO (09:18)
[2025-01-19] MEDS: ASPIRIN EC 81 MG TABLET PO ×2 (09:18→21:19)
[2025-01-19] MEDS: FINASTERIDE 5 MG TABLET PO (09:18)
[2025-01-19] MEDS: CITALOPRAM 10 MG TABLET 20 MG PO (09:18)
[2025-01-19] MEDS: SODIUM CHLORIDE 0.9% FLUSH 10 ML IV ×2 (09:19→21:19)
[2025-01-19] MEDS: ACETAMINOPHEN 325 MG TABLET 650 MG PO ×2 (09:19→21:20)
--- NOTE | 2025-01-19 10:20 | PT.IPTN ---
Current Diagnoses Fracture of unspecified part of neck of right femur, initial encounter for closed fracture (01/15/25) Unspecified intracapsular fracture of right femur, initial encounter for closed fracture (01/15/25) Presence of unspecified artificial hip joint (01/15/25) Surgery Performed Operation Date: 01/15/25 16:00 Actual Procedures p Hip posterior unipolar cemented(Right) - Radha Talbot MD Physical Therapy Treatment Note M2 PT-IP Current Condition Start: 01/16/25 12:42 Freq: NEEDED Status: Active Protocol: Document 01/16/25 09:45 AB (Rec: 01/16/25 12:57 AB [id number]) Physical Therapy Current Condition Current Condition Evaluation Date 01/16/25 Treatment Diagnosis s/p R hip hemiarthroplasty; difficulty in walking Onset Date 01/15/25 M3 PT-IP Subjective Start: 01/16/25 12:42 Freq: NEEDED Status: Active Protocol: Document 01/19/25 10:20 AB (Rec: 01/19/25 12:42 AB [id number]) Subjective Physical Therapy Visit Type Type Treatment Note Visit Start Time 10:20 Visit Stop Time 10:40 Number of STEAMER OPERATOR Visits 0 Physical Therapy Visit Comments Patient Comments agreeable to do PT Therapy Pain Assessment Pain When Pain Assessed At Rest Pain Present Pain Present Pain Reported Location Right groin Scale Used pain scale not stated Pain Behaviors Guarding,Holding Area Pain Management Techniques Distraction,Modification of Treatment,Re-positioning M4 PT-IP Mobility and Gait Start: 01/16/25 12:42 Freq: NEEDED Status: Active Protocol: Document 01/19/25 10:20 AB (Rec: 01/19/25 12:42 AB [id number]) PT-Bed Mobility Assessment Supine to Sit Supine to Sit Standby Assistance PT-Transfer Assessment Sit to and From Stand Sit to and from Stand Moderate Assistance,1 Person Assistance,Use of Upper Extremities Equipment Transfer Assistive Device None,Gait Belt Orthotic/Prosthetic Devices or Brace: No Comments Mobility Comments pt in bed and agreeable to get up. pt calm and cooperative today. supine to sit SBA. sit to stand mod A and max cues. pt ambulated to the sink without AD min A x 2 VENTILATION WORKER. pt was able to maintain standing min A while completing grooming. pt agreed to walk more and ambulated in the hallway min A x 2 ~ 200 ft VENTILATION WORKER. opted not to use FWW due to pt's agitation when using FWW from previous tx. pt went back to his room towards the sink. pt left with OT to complete ADLs . Gait Assessment Gait Gait Assistance Required: Minimum Assistance,2 Person Assist Distance (Feet) 200 Able to Maintain Weight Bearing Status Yes During Gait Assistive Devices Assistive Device None,Gait Belt Orthotic/Prosthetic Devices or Brace: No Gait Deviations General Gait Pattern Antalgic,Decreased Stride Length,Decreased Feet Clearance,Narrow Based Gait Factors Limiting Gait Function Factors Limiting Gait Function Decreased Activity Tolerance, Decreased Strength,Difficulty Following Directions,Limited Range of Motion,Pain,Poor Balance,Poor Safety Awareness M5 PT-IP Objective Assessments Start: 01/16/25 12:42 Freq: NEEDED Status: Active Protocol: Document 01/16/25 09:45 AB (Rec: 01/16/25 12:57 AB [id number]) Orientation Orientation/Cognition Level of Alertness Confusional State Orientation Name Language Function Ability Hard of Hearing Safety Awareness Decreased Safety Awareness Memory Description Short Term Impaired,[facility] Impaired Gross Range of Motion Lower Extremity ROM Assessment Within Functional Limits Strength Lower Extremity Strength Assessment Right Impaired Hip 3-/5 Knee 3+/5 Muscle Tone Muscle Tone WNL Yes M6 PT-IP Treatment Start: 01/16/25 12:42 Freq: NEEDED Status: Active Protocol: Document 01/19/25 10:20 AB (Rec: 01/19/25 12:42 AB [id number]) Physical Therapy Treatment Education Education Provided Precautions,Safety M7 PT-IP Assessment and Plan Start: 01/16/25 12:42 Freq: NEEDED Status: Active Protocol: Document 01/19/25 10:20 AB (Rec: 01/19/25 12:42 AB [id number]) PT Summary Assessment and Plan Potential Rehabilitation Potential Fair Summary Impairments Pain,ROM,Strength,Balance, Coordination,Sensation,Tone, Cognition,Bed Mobility, Transfers,Gait,Activity Tolerance Progress Towards Goals Slow Progress due to Medical Issues,Slow Progress - Other Assessment Summary pt calm and cooperative today and ambulated in the hallway without AD min A x 2. opted not use FWW due to pt increase /easily get agitated and has increase agitation when using a FWW. pt will require 24/7 assist and will benefit from SNF. Goals Bed Mobility Goal Standby Assistance Transfer Goal Standby Assistance Gait Goal Standby Assistance Gait Distance 150 Other Goals ambulation providing VENTILATION WORKER Days to Meet Goals 10 Frequency of Treatment Frequency Of Treatment Once a Day Treatment Plan Physical Therapy Treatment Plan Bed Mobility Training,Transfer Training,Gait Training, Therapeutic Exercise,Balance Retraining,Post Op Education, Discharge Planning,Hot or Cold Pack,Neuromuscular Re-ed, Coordination Retraining,Manual Therapy Precautions Posterior Hip Precautions No Hip Flexion > 90 degrees,No Hip Internal Rotation,No Hip Adduction Weight Bearing Status Weight Bearing Status Weight Bear as Tolerated Allowed Weight Bearing Amount (enter % RLE WBAT or #) (%) Recommendations To Nursing Amount of Assist Needed 2 Person Assist Discharge Recommendations PT Discharge Recommendations Home with 26/04 Assist Available,Home Health,SNF Rehab Transportation Needs at Discharge Wheelchair/Cabulance - PT assist 1-2
--- NOTE | 2025-01-19 10:43 | OT.IP.TRT ---
Current Diagnoses Fracture of unspecified part of neck of right femur, initial encounter for closed fracture (01/15/25) Unspecified intracapsular fracture of right femur, initial encounter for closed fracture (01/15/25) Presence of unspecified artificial hip joint (01/15/25) Surgery Performed Operation Date: 01/15/25 16:00 Actual Procedures p Hip posterior unipolar cemented(Right) - Radha Talbot MD Occupational Therapy Treatment Note M2 OT-IP Current Condition Start: 01/16/25 11:16 Freq: Status: Active Protocol: Document 01/16/25 11:17 [facility] (Rec: 01/16/25 11:33 [facility] Desktop) Occupational Therapy Current Condition Current Condition Evaluation Date 01/16/25 Treatment Diagnosis S/P Right ORIF with unipolar, posterior approach Post Operative Precautions Posterior Hip Precautions No Hip Flexion > 90 degrees,No Hip Internal Rotation,No Hip Adduction M3 OT- IP Subjective and Pain Start: 01/16/25 11:16 Freq: Status: Active Protocol: Document 01/19/25 10:43 [facility] (Rec: 01/19/25 10:48 [facility] Desktop) OT- Subjective Occupational Therapy Visit Type Type Treatment Note Visit Start Time 10:30 Visit Stop Time 10:43 Occupational Therapy Visit Comments Patient Comments Pt agreed to get up to brush his hair and brush his teeth. OT Pain Assessment Pain When Pain Assessed During Mobility Pain Present Pain Present Pain Reported Location Right groin Pain Behaviors Facial Grimacing,Holding Area M4 OT- IP ADL's Start: 01/16/25 11:16 Freq: Status: Active Protocol: Document 01/19/25 10:43 [facility] (Rec: 01/19/25 10:48 [facility] Desktop) OT ADL-Grooming General Evaluation Grooming Ability Standby Assistance Areas Needing Assistance Retrieving/Set-up of Grooming Items Comments OT Grooming Comments Able to do while standing at the sink with CGA for balance holding onto the gait belt for the pt. OT ADL-Oral Care General Eval Oral Care Ability Standby Assistance Areas of Assistance Retrieving/Set-Up of Items Comments Oral Care Comments Able to do while standing at the sink. OT ADL-Dressing Comments OT Dressing Comments At this time best to have assist precautions. OT ADL-Toileting General Evaluation Toileting Ability Total Assistance Areas Needing Assistance Empty Catheter or Colostomy Comments OT Toileting Comments [place] M5 OT- IP IADL's Start: 01/16/25 11:16 Freq: Status: Active Protocol: Document 01/16/25 11:17 [facility] (Rec: 01/16/25 11:33 [facility] Desktop) OT-Instrumental Activities of Daily Living Deficits IADL Deficits Identified Deficits Home Safety Awareness Awareness of Need for Assistance at Home Decreased Awareness Ability to Problem Solve Emergency Unable to Problem Solve Situations Medication Management Medication Management Caregiver Administers Money Management Money Management Caregiver Provides Assistance Meal Preparation Meal Preparation Caregiver Provides Assist Ore Miner Ore Miner Caregiver Provides Assist M7 OT- IP Mobility and Balance Start: 01/16/25 11:16 Freq: Status: Active Protocol: Document 01/19/25 10:43 [facility] (Rec: 01/19/25 10:48 [facility] Desktop) OT- Bed Mobility Assessment Supine to Sit Supine to Sit Assist Standby Assistance Sit to Supine Sit to Supine Assist Standby Assistance OT-Transfer Assessment Sit to and From Stand Sit to and from Stand Minimal Assistance,1 Person Assistance,2 Person Assistance Transfers Transfer Ability Minimal Assistance,Moderate Assistance,1 Person Assistance ,2 Person Assistance Technique Transfer Destination Bed Devices Transfer Assistive Devices None,Gait Belt Comments Mobility Comments SBA with bed mobility needs. Pt needing from YASMIN x2 to MODA x1 to be able to walk n the room with hand held assist and some in the hallway as well. . OT- Balance Assessment Sitting Balance and Reactions Static Sitting Balance Ability Good Dynamic Sitting Balance Ability Good Standing Balance and Reactions Static Standing Balance Ability Fair Dynamic Standing Balance Ability Fair M8 OT- IP Objective Assessments Start: 01/16/25 11:16 Freq: Status: Active Protocol: Document 01/16/25 11:17 [facility] (Rec: 01/16/25 11:33 [facility] Desktop) OT Gross Range of Motion Upper Extremity Range of Motion Assessment Within Functional Limits OT Strength Comments Strength Comments BUE 4/5 grossly M9 OT- IP Assessment and Plan Start: 01/16/25 11:16 Freq: Status: Active Protocol: Document 01/19/25 10:43 [facility] (Rec: 01/19/25 10:48 [facility] Desktop) OT Summary Assessment and Plan Potential Rehabilitation Potential Good Analytic Complexity at Evaluation Moderate Summary OT Impairments Pain,Strength,Balance, Functional Cognition, Functional Mobility,Self- Feeding,Grooming,Dressing, Toileting,Bathing,Toilet Transfers,Shower Transfers, Activity Tolerance Assessment Summary Pt is O x name and place. 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 Pt looking to go to skilled rehab when medically stable. Goals Self-Feeding Goal Independent Grooming Goal Independent Dressing Goal Moderate Assistance Toileting Goal Standby Assistance Bathing Goal Minimal Assistance Toilet Transfer Goal Standby Assistance Shower Transfer Goal Contact Guard Assistance Days to Meet Goals 17 Frequency of Treatment Other frequency 5x/week Treatment Plan OT Treatment Plan ADL Training,Functional Mobility,Patient/Family Education,Discharge Planning Discharge Recommendations OT Discharge Recommendations SNF Rehab Transportation Needs at Discharge Wheelchair/Cabulance
--- NOTE | 2025-01-19 11:25 | CM.DPNOTE ---
DCP Continued: Reviewed EMR and team rounds for pt?s medical status. Per Provider, pt has been medically cleared to discharge to SNF Rehab, placed discharge orders and signed med list, Rx, and PASRR for hospital exempt discharge. Per RN, patient is no longer on 1:1 supervision and no Lorazepam administered overnight. RN also notes that pt's new scheduled Olanzapine has been helpful for behaviors. DCP spoke with [facility], it is reported their Department of Nursing and Environmental Engineer Scientist will have to re-review patient's clinicals and an anticipated acceptance for Wednesday, 01/22 due to this re-review and bed availability. DCP sent requested clinicals via secure email (last three Progress notes, last three RN notes, last PT/OT treatment and discharge summary). DCP notified pt Provider, Dr. Hinton, pt RN, and CM staff of change in discharge date. DCP to notify pt son/DPOA. DCP will re-complete PASRR due to new Olanzapine medication. Plan: Anticipating dc to [facility] on 01/22; pending final acceptance time from facility. CM Team will continue to follow for coordination of discharge plans. MATTHEW Sims
[2025-01-19 18:07] VITALS: BP 121/42; PULSE 72; RESP 20; TEMP 36.6; O2SAT 98
[2025-01-19 19:00] VITALS: BP 105/50; PULSE 81; RESP 20; TEMP 36.6; O2SAT 95
[2025-01-19] MEDS: OLANZapine 2.5 MG TABLET PO (21:19)
[2025-01-20 09:00] VITALS: BP 136/57; PULSE 73; RESP 16; TEMP 36.3; O2SAT 96
[2025-01-20] MEDS: FINASTERIDE 5 MG TABLET PO (09:09)
[2025-01-20] MEDS: ACETAMINOPHEN 325 MG TABLET 650 MG PO ×3 (09:09→21:52)
[2025-01-20] MEDS: DOCUSATE 100 MG CAPSULE PO ×2 (09:10→21:52)
[2025-01-20] MEDS: TAMSULOSIN 0.4 MG CAPSULE 0.8 MG PO (09:10)
[2025-01-20] MEDS: CITALOPRAM 10 MG TABLET 20 MG PO (09:10)
[2025-01-20] MEDS: OXYCODONE IR 5 MG TABLET PO ×3 (09:10→21:52)
[2025-01-20] MEDS: ASPIRIN EC 81 MG TABLET PO ×2 (09:10→21:51)
[2025-01-20] MEDS: SODIUM CHLORIDE 0.9% FLUSH 10 ML IV ×2 (09:10→21:53)
--- NOTE | 2025-01-20 09:33 | P.PN_ITS ---
Subjective Subjective Interval history: Patient's pain is controlled with oral medication. ?Pain is localized to surgical site. ?Patient declines any new numbness or tingling at the surgical extremity. ?Patient denies any shortness of breath, dizziness, light-headedness, nausea, vomiting, fever or chills. Exam Vital Signs (past 8 hours): Fraction of Inspired Oxygen 36 SaO2/FiO2 Ratio 266 Oxygen Delivery Method Room Air Oxygen Flow Rate 0 Narrative Exam Narrative: Patient found sitting comfortably in chair. Durant in place. 5/5 strength in hip flexors, quadriceps, hamstrings, DF, PF, EHL bilaterally. Sensation to light touch intact throughout BLE. Calves soft, compressible, nontender. Dressing placed intraoperatively CDI. Objective Labs 01/18/25 04:20 01/18/25 04:20 [facility] Medical History Urinary retention Durant catheter in place Obstructive uropathy Complex renal cyst Dementia Acquired hypothyroidism Surgical History Anesthesia History of hernia repair Family History Father Cancer Mother Bronchitis Social History household members: none Smoking Status: Never smoker alcohol intake: never caffeine: Yes Assessment & Plan Post-op Postoperative Procedures: Procedures Operation Date: 01/15/25 16:00 Actual Procedure Side Surgeon p Hip posterior unipolar cemented Right Radha Talbot MD Postoperative day: 5 Postoperative plan: routine post-op care and ambulate Postoperative plan narrative: Plan is to discharge to SNF when bed is available. Posterior Hip Pre-cautions. Ambulate and weight bear as tolerated with assistive devices. Aspirin 81 mg twice a day for 6 weeks for DVT prevention. Baseline pain relief with acetaminophen 500mg every 4 hours as needed and ibuprofen 400 mg every 4 hours as needed. Patient has been prescribed oxycodone 5 mg every 4 hours as needed for breakthrough pain. Initiate physical therapy in the next 5-10 days. Keep dressing clean and dry. Keep dressing on until first office visit. If dressing becomes dirty or disrupted, replace with appropriate sized dressing. Follow up in clinic in 2 weeks for wound check. Contact clinic if there are any questions or concerns. Medicine and disposition per hospitalist. Patient stable from an ortho standpoint. Ortho signing off. Quality VTE Deep Vein Thrombosis/Pulmonary Embolism Present on Admission: No
[2025-01-20] MEDS: LORazepam 0.5 MG TABLET PO (09:56)
--- NOTE | 2025-01-20 10:19 | PC.NURSE ---
DRYING EQUIPMENT OPERATOR note: Dayshift Pt is upset and anxious thinking about . Pt is getting up every very often to look outside windows to look at his 's room. Pt will not use walker correctly and gets upset when trying to correct him. Pt needs reminder that he is in the hosptial and can not leave. Pt gets up often to look and search for his 's room.
[2025-01-20] MEDS: LORazepam 2 MG/ML INJ 1 MG IV (10:52)
--- NOTE | 2025-01-20 14:34 | P.PN_ITS ---
Subjective Subjective Interval history: This is a new patient to me, seen in [facility] for Dr. Hinton. Patient is postop day 5. Status post hip fracture and surgical repair. He has been discharged from [facility] Care to follow up with them in 2 weeks. Pain appears to be well-controlled with Tylenol and oxycodone. Patient has an underlying history of dementia unclear severity and currently not on medications for this. He has had confusion and agitation and has been combative. He was started on Zyprexa. He has also been treated with IV and p.o. lorazepam. Patient is alert but not able to answer questions 12 point review of systems is negative No fever Tolerating p.o. without difficulty Moving well ambulating etc.. Exam Vital Signs (past 8 hours): - 01/20/25 09:00 Temperature 97.4 F L Pulse Rate 73 Respiratory Rate 16 Blood Pressure 136/57 L Pulse Oximetry 96 Oxygen Flow Rate 0 Fraction of Inspired Oxygen 36 SaO2/FiO2 Ratio 266 Oxygen Delivery Method Room Air Oxygen Flow Rate 0 Narrative Exam Narrative: Patient is resting in hospital bed. He is in no apparent distress Vital signs are stable, normotensive and afebrile stable on room air HEENT shows mucous membranes moist and pink Neck: Soft without adenopathy or thyromegaly Chest: Clear to auscultation with decreased breath sounds bibasilar but no wheezes rhonchi or crackles Abdomen: Positive bowel sounds, soft, nontender Extremities: No edema Skin no rashes Neurologic exam: Confused otherwise nonfocal Objective Labs 01/18/25 04:20 01/18/25 04:20 [facility] Medical History Urinary retention Durant catheter in place Obstructive uropathy Complex renal cyst Dementia Acquired hypothyroidism Surgical History Anesthesia History of hernia repair Family History Father Cancer Mother Bronchitis Social History household members: none Smoking Status: Never smoker alcohol intake: never caffeine: Yes Assessment & Plan Assessment & Plan narrative: 1. Postop day 5 Status post ORIF right unipolar hip replacement due to fracture- continue postoperative management as per Orthopedic surgery. He will continue with a baby aspirin twice daily for 6 weeks per ortho. We will continue with pain control. His mobility is improving. Ortho has signed off. Once he is medically stable and a bed is available he will be transferred to skilled care facility. 2. 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 He will be discharged from hospital with Durant catheter in place 3. Dementia-became quite agitated yesterday. Not surprising giving his underlying dementia. Will use lorazepam as minimal as possible. Will do labs tomorrow. No clear metabolic etiology or other focal findings or infection that is contributing. Will increase Zyprexa to 5 mg at bedtime and 2.5 in the morning. Will reassess in a.m.. 4. VTE prophylaxis-as per Orthopedic surgery, currently aspirin 81 mg b.i.d. for 6 weeks 5. Disposition-to residential, when stable. Patient will be transferred to skilled care facility for rehab for his hip fracture once he is medically stable and bed is available and he was accepted. 55 minutes was spent with patient discussing with physician, reviewing chart, meeting with patient, formulating a plan and documentation Time-Based Coding Time-Based Coding :: [TOTAL MINUTES] spent with patient and on the chart (including review of chart, obtaining history, exam, reviewing outside data, placing orders, documenting exam and treatment plan, and counseling patient) on [DATE]. Quality VTE Deep Vein Thrombosis/Pulmonary Embolism Present on Admission: No
[2025-01-20] MEDS: IBUPROFEN 400 MG TABLET PO (16:28)
[2025-01-20] MEDS: LORazepam 0.5 MG TABLET 1 MG PO (16:29)
--- NOTE | 2025-01-20 19:36 | PC.NURSE ---
Late entry. Per nursing shift change report, the pt did not sleep much during the table games shift manager and the pt appeared to be agitated and is unable to get comfortable, getting up from hospital bed and over to chair, pacing in the room and wanting to leave the hospital AMA. This RN asked pt at approximately 0900 if he was having some pain and pt c/o of pain in his R hip/groin this RN gave the pt oxycodone with some Tylenol. The pt continued to be restless wanting to walk around the hospital and was becoming verbally aggressive with staff, specifically the PACKAGE CHECKER that was assigned to the pt for a 1:1 sitter, at this point oral Ativan was given to relieve the pt's anxiety but did not reduce pt's anxiety symptoms. At approximately 10:50 this RN decided to give the pt IV Ativan after the pt became more verbally aggressive with different staff members, attempting to leave AMA, and yelling at staff and getting pointing his finger into staff members faces. This RN asked the pt to sit down either in the chair or on the bed so IV Ativan could be administer, this is when the pt started yelling at this RN, kept moving closer to this RN as this RN started to back up to the towards door. The pt continued to yell and aggressively point his finger into this RN's face. This RN told the pt that he needed to stop and take a step back, pt did not follow instructions and lunged toward this RN while taking a swing at this RN at which point a mauri meade was called. This RN told the pt to sit down in the chair or staff would have to physically restrain him for his own safety and the safety of others, as staff members arrived to the overhead page of the code meade the pt decided to sit down in the chair and IV Ativan was administered for the pt's severe agitation. The pt's agitation was relieved by the IV Ativan as evidence by the pt sitting and talking calmly with staff.
[2025-01-20] MEDS: OLANZapine 2.5 MG TABLET 5 MG PO (21:52)
[2025-01-20 22:19] VITALS: BP 110/59; PULSE 68; RESP 18; TEMP 36.4; O2SAT 95
[2025-01-21 05:18] LABS: Add Manual Diff / Slide Review NO; Basophils Absolute Auto 0 /uL (0-100); Basophils Percent Auto 0.4 % (0-2); Eosinophils Absolute Auto 200 /uL (0-450); Eosinophils Percent Auto 4.6 % (2-4); Hematocrit 30.1 % (41-53); Hemoglobin 10.7 g/dL (13.5-17.5); Lymphocytes Absolute Auto 1200 /uL (1100-4500); Lymphocytes Percent Auto 32.5 % (25-40); Mean Corpuscular HGB Conc 35.5 % (30-36); Mean Corpuscular Hemoglobin 33.2 PG (26-34); Mean Corpuscular Volume 93.7 fL (80-100); Monocytes Absolute Auto 500 /uL (0-900); Monocytes Percent Auto 12.7 % (3-14); Neutrophils Absolute Auto 1800 /uL (1500-7000); Neutrophils Percent Auto 49.8 % (50-75); Platelet Count 164 X10^3/uL (150-400); Red Blood Cell Count 3.21 X10^6/uL (4.5-5.9); Red Cell Distribution Width 14.2 % (11.6-14.8); White Blood Cell Count 3.7 X10^3/uL (4.5-11.0)
[2025-01-21 05:29] LABS: BUN Creatinine Ratio 30.6 (6-22); Blood Urea Nitrogen 19 mg/dL (9-20); Calcium 8.2 mg/dL (8.4-10.2); Carbon Dioxide 29 mmol/L (22-32); Chloride 103 mmol/L (98-107); Estimated Glomerular Filt Rate > 60 mL/min (>60); Glucose 90 mg/dL (80-110); HEMOLYSIS < 15 (0-50); Potassium 4.1 mmol/L (3.4-5.1); Sodium 135 mmol/L (137-145)
--- NOTE | 2025-01-21 06:26 | PC.NURSE ---
Late entry. Per nursing shift change report, the pt did not sleep much during the caustic cresylate shift superintendent and the pt appeared to be agitated and is unable to get comfortable, getting up from hospital bed and over to chair, pacing in the room and wanting to leave the hospital AMA. This RN asked pt at approximately 0900 if he was having some pain and pt c/o of pain in his R hip/groin this RN gave the pt oxycodone with some Tylenol. The pt continued to be restless wanting to walk around the hospital and was becoming verbally aggressive with staff, specifically the AIRCRAFT ENGINE INSTALLER that was assigned to the pt for a 1:1 sitter, at this point oral Ativan was given to relieve the pt's anxiety but did not reduce pt's anxiety symptoms. At approximately 10:50 this RN decided to give the pt IV Ativan after the pt became more verbally aggressive with different staff members, attempting to leave AMA, and yelling at staff and pointing his finger into staff members faces. This RN asked the pt to sit down either in the chair or on the bed so IV Ativan could be administered, this is when the pt started yelling at this RN, kept moving closer to this RN as this RN started to back up to the towards door. The pt continued to yell and aggressively point his finger into this RN's face. This RN told the pt that he needed to stop and take a step back, pt did not follow instructions and lunged toward this RN while taking a swing at this RN at which point a mauri meade was called. This RN told the pt to sit down in the chair or bed for his own personal safety and for the safety of others. Attempted to educate the pt on the hospital's fall risk policy along with potential side effects of the medication such as dizziness, lightheadedness, drowsiness, and blurred vision. The pt sat down in the chair once staff members showed up to assist with the code patricia. When the pt was seated safely, this RN administered the IV Ativan. The pt's agitation was relieved by the IV Ativan as evident by the pt sitting and talking calmly with staff. This RN then attached the chair alarm to the pt's gown, and the 1:1 sitter remained with the pt.
--- NOTE | 2025-01-21 08:57 | PT-IP ANOTE ---
PT reviews chart and checks in with nsg. Pt is sleeping soundly currently and per nsg, has not been sleeping well. Will let pt sleep. PT noted that pt has had agitation with RW training and gait trained over 200' with SPRING MANUFACTURING SET UP TECHNICIAN with PT in previous treatment dates. Will perform skilled treatment as pt appropriate and update any d/c recommendations. Con't PT efforts at another time.
[2025-01-21] MEDS: ASPIRIN EC 81 MG TABLET PO ×2 (10:07→20:24)
[2025-01-21] MEDS: CITALOPRAM 10 MG TABLET 20 MG PO (10:07)
[2025-01-21] MEDS: DOCUSATE 100 MG CAPSULE PO ×2 (10:07→20:24)
[2025-01-21] MEDS: FINASTERIDE 5 MG TABLET PO (10:08)
[2025-01-21] MEDS: TAMSULOSIN 0.4 MG CAPSULE 0.8 MG PO (10:08)
[2025-01-21] MEDS: OLANZapine 2.5 MG TABLET PO (10:08)
[2025-01-21] MEDS: SODIUM CHLORIDE 0.9% FLUSH 10 ML IV ×2 (10:15→20:25)
--- NOTE | 2025-01-21 14:36 | PM.PN.1 ---
Subjective Subjective Date Patient Seen: 01/21/25 Time Patient Seen: 14:37 Interval history: PATIENT HAD UNREMARKABLE NIGHT LAST NIGHT. He apparently had not slept Wednesday night or night and was combative. He was able to sleep last night. His Zyprexa was increased to 5 mg at night and 2.5 mg in the a.m.. He has not required anymore lorazepam. He has been confused but appropriate. He denies any shortness of breath or chest pain. He is tolerating p.o. without any difficulty. Twelve point review of systems is otherwise negative Exam Vital Signs (past 8 hours): Fraction of Inspired Oxygen 36 SaO2/FiO2 Ratio 266 Oxygen Delivery Method Room Air Oxygen Flow Rate 0 Narrative Exam Narrative: Patient is alert but not oriented to person place or time. Patient is confused able to answer questions but states that it has been very confusing here with the hospital and then talking about something with his son on a trail Afebrile vital signs are stable HEENT is unremarkable Neck is supple Chest: Clear to auscultation without wheezes rhonchi or crackles Cor: Regular rate and rhythm distant S1-S2 Abdomen: Positive bowel sounds, soft Extremities: No edema Neuro nonfocal Objective Labs 01/21/25 04:40 01/21/25 04:40 Labs: Laboratory Results - last 24 hr 01/21/25 04:40 WBC 3.7 L RBC 3.21 L Hgb 10.7 L Hct 30.1 L MCV 93.7 MCH 33.2 MCHC 35.5 RDW 14.2 Plt Count 164 Neut % (Auto) 49.8 L Lymph % (Auto) 32.5 [place] % (Auto) 12.7 Eos % (Auto) 4.6 H Baso % (Auto) 0.4 Neut # (Auto) 1800 Lymph # (Auto) 1200 [place] # (Auto) 500 Eos # (Auto) 200 Baso # (Auto) 0 Sodium 135 L Potassium 4.1 Chloride 103 Carbon Dioxide 29 BUN 19 Creatinine 0.62 L Estimated GFR > 60 BUN/Creatinine Ratio 30.6 H Glucose 90 Calcium 8.2 L [facility] Medical History Urinary retention Durant catheter in place Obstructive uropathy Complex renal cyst Dementia Acquired hypothyroidism Surgical History Anesthesia History of hernia repair Family History Father Cancer Mother Bronchitis Social History household members: none Smoking Status: Never smoker alcohol intake: never caffeine: Yes Assessment & Plan Assessment & Plan narrative: 1. Postop day 6 Status post ORIF right unipolar hip replacement due to fracture-continue postoperative management as per Orthopedic surgery. He will continue with a baby aspirin twice daily for 6 weeks per ortho. We will continue with pain control. His mobility is improving. Ortho has signed off. Once he is medically stable and a bed is available he will be transferred to skilled care facility, which will be tomorrow I suspect 2. 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 He will be discharged from hospital with Durant catheter in place 3. Dementia-became quite agitated yesterday. Not surprising giving his underlying dementia. Patient is much improved today. He has not had lorazepam or required this use for over 24 hours. Zyprexa was increased yesterday from 2.5 at night to 5 mg at night and 2.5 in the morning. He was doing much better. Will continue the same. No evidence of further underlying problem other than underlying dementia and hospitalization 4. VTE prophylaxis-as per Orthopedic surgery, currently aspirin 81 mg b.i.d. for 6 weeks 5. Disposition-to snf, when stable. Patient will be transferred to skilled care facility for rehab for his hip fracture once he is medically stable and bed is available and he was accepted. 6. Previous thrombocytopenia has resolved 7. Slight neutropenia new today. No concern for infection or other etiology. We will continue to monitor 45 minutes was spent with patient discussing with physician, reviewing chart, meeting with patient, formulating a plan and documentation Code status is DNR Time-Based Coding :: [TOTAL MINUTES] spent with patient and on the chart (including review of chart, obtaining history, exam, reviewing outside data, placing orders, documenting exam and treatment plan, and counseling patient) on [DATE]. Quality VTE Deep Vein Thrombosis/Pulmonary Embolism Present on Admission: No
[2025-01-21] MEDS: LORazepam 0.5 MG TABLET 1 MG PO ×2 (15:54→20:24)
[2025-01-21] MEDS: ACETAMINOPHEN 325 MG TABLET 650 MG PO ×2 (15:54→20:26)
--- NOTE | 2025-01-21 18:40 | PC.NURSE ---
Patient pleasant throughout the day today making conversation and telling stories. He did not try to get out of bed or become agitated with staff. He was given prn dose lorazepam for some restlessness in the evening but he remained calm and pleasant throughout the entire day, allowing staff to care for , turn and change him.
[2025-01-21 19:00] VITALS: BP 128/64; PULSE 96; RESP 18; TEMP 36.6; O2SAT 94
[2025-01-21] MEDS: OLANZapine 2.5 MG TABLET 5 MG PO (20:24)
[2025-01-22] MEDS: OXYCODONE IR 5 MG TABLET PO ×3 (02:38→20:36)
[2025-01-22] MEDS: ACETAMINOPHEN 325 MG TABLET 650 MG PO ×3 (02:38→20:36)
--- NOTE | 2025-01-22 06:50 | P.PN_ITS ---
Subjective Subjective Date Patient Seen: 01/22/25 Time Patient Seen: 06:51 Interval history: Patient intermittently sleeping and or up at night somewhat agitated. Did require some oral lorazepam yesterday. Difficult to get him to cooperate with physical therapy because either he was somnolent or it seems to agitate him to some degree Vital signs have been okay. Exam Vital Signs (past 8 hours): Fraction of Inspired Oxygen 36 SaO2/FiO2 Ratio 266 Oxygen Delivery Method Room Air Oxygen Flow Rate 0 Objective Labs 01/21/25 04:40 01/21/25 04:40 [facility] Medical History Urinary retention Durant catheter in place Obstructive uropathy Complex renal cyst Dementia Acquired hypothyroidism Surgical History Anesthesia History of hernia repair Family History Father Cancer Mother Bronchitis Social History household members: none Smoking Status: Never smoker alcohol intake: never caffeine: Yes Assessment & Plan Assessment & Plan narrative: 1. Postop day 7 Status post ORIF right unipolar hip replacement due to fracture- continue postoperative management as per Orthopedic surgery. He will continue with a baby aspirin twice daily for 6 weeks per ortho. We will continue with pain control. His mobility is improving. Ortho has signed off. 2. 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 He will be discharged from hospital with Durant catheter in place 3. Dementia-continues to be an issue with some degree of agitation although easily redirected and controlled for the most part. Interfering a bit with physical therapy but he has been up on his leg anyway in part due to his dementia. Will adjust his olanzapine dose he was slightly higher dose at nighttime and continue low-dose in the morning in an effort to help normalize day night cycles etcetera 4. VTE prophylaxis-as per Orthopedic surgery, currently aspirin 81 mg b.i.d. for 6 weeks 5. Disposition-to halfway when accepting facility can be found with bed availability etcetera. Patient is medically ready for discharge at any time Time-Based Coding :: [TOTAL MINUTES] spent with patient and on the chart (including review of chart, obtaining history, exam, reviewing outside data, placing orders, documenting exam and treatment plan, and counseling patient) on [DATE]. 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
[2025-01-22 07:00] VITALS: BP 114/55; PULSE 63; RESP 16; TEMP 36.1; O2SAT 96
[2025-01-22] MEDS: ASPIRIN EC 81 MG TABLET PO ×2 (08:07→20:36)
[2025-01-22] MEDS: FINASTERIDE 5 MG TABLET PO (08:07)
[2025-01-22] MEDS: CITALOPRAM 10 MG TABLET 20 MG PO (08:07)
[2025-01-22] MEDS: DOCUSATE 100 MG CAPSULE PO ×2 (08:07→20:36)
[2025-01-22] MEDS: TAMSULOSIN 0.4 MG CAPSULE 0.8 MG PO (08:08)
[2025-01-22] MEDS: OLANZapine 2.5 MG TABLET PO ×2 (08:14→13:00)
[2025-01-22] MEDS: SODIUM CHLORIDE 0.9% FLUSH 10 ML IV ×2 (10:00→20:37)
--- NOTE | 2025-01-22 12:40 | PT.IPTN ---
Current Diagnoses Fracture of unspecified part of neck of right femur, initial encounter for closed fracture (01/15/25) Unspecified intracapsular fracture of right femur, initial encounter for closed fracture (01/15/25) Presence of unspecified artificial hip joint (01/15/25) Surgery Performed Operation Date: 01/15/25 16:00 Actual Procedures p Hip posterior unipolar cemented(Right) - Radha Talbot MD Physical Therapy Treatment Note M2 PT-IP Current Condition Start: 01/16/25 12:42 Freq: NEEDED Status: Active Protocol: Document 01/16/25 09:45 AB (Rec: 01/16/25 12:57 AB [id number]) Physical Therapy Current Condition Current Condition Evaluation Date 01/16/25 Treatment Diagnosis s/p R hip hemiarthroplasty; difficulty in walking Onset Date 01/15/25 M3 PT-IP Subjective Start: 01/16/25 12:42 Freq: NEEDED Status: Active Protocol: Document 01/22/25 11:48 MB (Rec: 01/22/25 12:40 MB Desktop) Subjective Physical Therapy Visit Type Type Treatment Note Visit Start Time 11:48 Visit Stop Time 11:58 Number of COMPACTING MACHINE OPERATOR/TENDER Visits 0 Physical Therapy Visit Comments Patient Comments Pt up walking with QUARTZ MINER BLASTING and PT steps in to assess mobility. M4 PT-IP Mobility and Gait Start: 01/16/25 12:42 Freq: NEEDED Status: Active Protocol: Document 01/22/25 11:48 MB (Rec: 01/22/25 12:40 MB Desktop) PT-Transfer Assessment Sit to and From Stand Sit to and from Stand Contact Guard Assistance,1 Person Assistance,Use of Upper Extremities Equipment Transfer Assistive Device Gait Belt,Front Wheeled Walker Transfers Transfer Destination Chair Transfer Technique Ambulated Transfer Ability Level of Assist Contact Guard Assistance,1 Person Assistance,Use of Upper Extremities Comments Mobility Comments Pt does not fully back up to chair and he does reach back Gait Assessment Gait Gait Assistance Required: Contact Guard Assist,1 Person Assist Distance (Feet) 100 Assistive Devices Assistive Device Gait Belt,Front Wheeled Walker Gait Deviations General Gait Pattern Decreased Stride Length, Decreased Feet Clearance, Flexed Trunk,Narrow Based Gait ,Step-to Gait Factors Limiting Gait Function Factors Limiting Gait Function Difficulty Following Directions,Poor Balance,Poor Safety Awareness Comments Gait Comments Pt occ weaves feet, does not keep close enough to walker, tends to keep walker pushed out in front, poor safety awareness PT-Balance Assessment Sitting Balance and Reactions Static Sitting Balance Ability Good Standing Balance and Reactions Static Standing Balance Ability Fair Dynamic Standing Balance Ability Poor Device Used RW M5 PT-IP Objective Assessments Start: 01/16/25 12:42 Freq: NEEDED Status: Active Protocol: Document 01/16/25 09:45 AB (Rec: 01/16/25 12:57 AB [id number]) Orientation Orientation/Cognition Level of Alertness Confusional State Orientation Name Language Function Ability Hard of Hearing Safety Awareness Decreased Safety Awareness Memory Description Short Term Impaired,Detention Impaired Gross Range of Motion Lower Extremity ROM Assessment Within Functional Limits Strength Lower Extremity Strength Assessment Right Impaired Hip 3-/5 Knee 3+/5 Muscle Tone Muscle Tone WNL Yes M6 PT-IP Treatment Start: 01/16/25 12:42 Freq: NEEDED Status: Active Protocol: Document 01/22/25 11:48 MB (Rec: 01/22/25 12:40 MB Desktop) Physical Therapy Treatment Education Education Provided Safety M7 PT-IP Assessment and Plan Start: 01/16/25 12:42 Freq: NEEDED Status: Active Protocol: Document 01/22/25 11:48 MB (Rec: 01/22/25 12:40 MB Desktop) PT Summary Assessment and Plan Potential Rehabilitation Potential Poor Status of Condition at Evaluation Evolving Summary Impairments Coordination,Cognition,Bed Mobility,Transfers,Gait, Activity Tolerance Progress Towards Goals Progressing Toward Goals Assessment Summary Pt is gait training far distances with QUARTZ MINER BLASTING and walker in hallway and also in previous treatments with BATCH UNLOADER from PT. Today, pt is agreeable to use the RW and is already up walking in hallway upon PT arrival. Pt requires superv to CGA with PT and feel he will con't to require 24 hour superv at d/c d/c cognitive and safety issues. He is close to meeting acute PT goals and will try one more treatment to see if he has met bed mobility goal of SBA. Goals Bed Mobility Goal Standby Assistance Transfer Goal Standby Assistance Gait Goal Standby Assistance Gait Distance 150 Other Goals ambulation providing BATCH UNLOADER or LRAD Days to Meet Goals 5 Frequency of Treatment Frequency Of Treatment Once a Day Treatment Plan Physical Therapy Treatment Plan Bed Mobility Training,Transfer Training,Gait Training, Discharge Planning Precautions Other Precautions Per Dr. Talbot order on 01/15/25 , hip not bent more than 70 deg, no crossing of legs or IR opertated hip/leg Weight Bearing Status Weight Bearing Status Weight Bear as Tolerated Allowed Weight Bearing Amount (enter % RLE WBAT or #) (%) Recommendations To Nursing Amount of Assist Needed 1 Person Assist Discharge Recommendations PT Discharge Recommendations Home with 26/04 Assist Available,Home Health,SNF Rehab Transportation Needs at Discharge Wheelchair/Cabulance - PT assist 1-2
--- NOTE | 2025-01-22 13:11 | CM.DPNOTE ---
Received message from Nel at [facility] stating they reviewed the updated clinicals and confirm they can accept pt but unfortunately not until tomorrow 01/23 as they have a couple COVID+ residents and have to move rooms for isolation precautions. Plan is tentative p/u tomorrow 01/23 around 1100. TAMMI Mccoy
--- NOTE | 2025-01-22 13:47 | CM.DPC ---
DCP Cont. Reviewed EMR and team rounds for status updates. Per [facility], they cannot accept until , 01/23. Will continue to monitor and coordinate transition to [facility].
--- NOTE | 2025-01-22 14:00 | DIET.CONS ---
Dietary Consultation Note Admission Date: 01/15/2025 02:38 Assessment: 84 y M admitted for GLF. Dietitian screened for LOS. EMR reviewed, pt with hx of dementia. Varied recorded PO intakes 0-100%, recent PO intakes average 75%. Pt ordering 1-2 ONS/protein smoothie options per day. Non-severe weight loss, -5% within 3 months. Ht: 175.26 cm Wt: 64 kg BMI: 21.4 UBW: majority of weights 63.5-67 kg in last year, 65.998 kg on 12/29/24, 67. 273 kg on 11/27/24 (-5% weight loss in 2 months, non-severe) 67.699 kg on 08/07/24 Last BM: () MNA: 11 [place]odi Score: 20 Diet: 01/15/25 Dinner General (Regular) Diet Diet Modifications: Nutrition Percent Meal Consumed 50% 01/21/25 18:00 Percent Meal Consumed 100% 01/21/25 13:00 Percent Meal Consumed 0% 01/20/25 18:00 Labs: RBC 3.21 X10^6/uL (4.5-5.9) L 01/21/25 04:40 Hgb 10.7 g/dL (13.5-17.5) L 01/21/25 04:40 Hct 30.1 % (41-53) L 01/21/25 04:40 Creatinine 0.62 mg/dL (0.66-1.25) L 01/21/25 04:40 Nutrition Diagnosis: Unintentional weight loss r/t variable PO intakes aeb -5% weight loss within 3 months (non-severe) Interventions: continue ONS BID EER: [id number] kcals (25-30 kcals/kg) 65 g protein (1g/kg per age) Monitoring/Evaluations: PO intakes Electronically Signed by: Ana Luisa Denise 01/22/25 14:00 Clinical Dietitian [address] [id number]
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
[2025-01-22] MEDS: OLANZapine 2.5 MG TABLET 7.5 MG PO (20:36)
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
[2025-01-23] MEDS: LORazepam 2 MG/ML INJ 1 MG IM (01:19)
--- NOTE | 2025-01-23 06:52 | PM.PN.IH.1 ---
Subjective Subjective Date Patient Seen: 01/23/25 Time Patient Seen: 06:52 Interval history: Patient again became increasing agitated through the course of the day yesterday. Required staff emergency to be called and he received 1 mg of lorazepam intramuscularly which seem to calm him Patient up walking on his own as part of his agitation both mid day and evening This morning patient rather somnolent. Exam Vital Signs (past 8 hours): Fraction of Inspired Oxygen 36 SaO2/FiO2 Ratio 266 Oxygen Delivery Method Room Air Oxygen Flow Rate 0 Objective Labs 01/21/25 04:40 01/21/25 04:40 [facility] Medical History Urinary retention Durant catheter in place Obstructive uropathy Complex renal cyst Dementia Acquired hypothyroidism Surgical History Anesthesia History of hernia repair Family History Father Cancer Mother Bronchitis Social History household members: none Smoking Status: Never smoker alcohol intake: never caffeine: Yes Assessment & Plan Assessment & Plan narrative: 1. Postop day 8 Status post ORIF right unipolar hip replacement due to fracture-continue postoperative management as per Orthopedic surgery. He will continue with a baby aspirin twice daily for 6 weeks per ortho. We will continue with pain control. His mobility is improving. Ortho has signed off. 2. 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 He will be discharged from hospital with Durant catheter in place 3. Dementia-continues to be an issue with some degree of agitation although easily redirected and controlled for the most part. Interfering a bit with physical therapy but he has been up on his leg anyway in part due to his dementia. Patient was clearly I think needs additional medication to try and control his behaviors. I am going to add quetiapine b.i.d., which will require changing his citalopram to a different SSRI due to drug interactions 4. VTE prophylaxis-as per Orthopedic surgery, currently aspirin 81 mg b.i.d. for 6 weeks 5. Disposition-to senior living when accepting facility can be found with bed availability etcetera. Patient is medically ready for discharge at any time, in my opinion Time-Based Coding :: [TOTAL MINUTES] spent with patient and on the chart (including review of chart, obtaining history, exam, reviewing outside data, placing orders, documenting exam and treatment plan, and counseling patient) on [DATE]. 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
[2025-01-23] MEDS: FINASTERIDE 5 MG TABLET PO (10:53)
[2025-01-23] MEDS: QUETIAPINE 25 MG TABLET PO ×2 (10:53→19:56)
[2025-01-23] MEDS: FLUoxetine 10 MG CAPSULE PO (10:53)
[2025-01-23] MEDS: ASPIRIN EC 81 MG TABLET PO ×2 (10:53→19:56)
[2025-01-23] MEDS: TAMSULOSIN 0.4 MG CAPSULE 0.8 MG PO (10:54)
[2025-01-23] MEDS: SODIUM CHLORIDE 0.9% FLUSH 10 ML IV ×2 (10:54→20:00)
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
--- NOTE | 2025-01-23 13:30 | PT.IPTN ---
Current Diagnoses Fracture of unspecified part of neck of right femur, initial encounter for closed fracture (01/15/25) Unspecified intracapsular fracture of right femur, initial encounter for closed fracture (01/15/25) Presence of unspecified artificial hip joint (01/15/25) Surgery Performed Operation Date: 01/15/25 16:00 Actual Procedures p Hip posterior unipolar cemented(Right) - Radha Talbot MD Physical Therapy Treatment Note M2 PT-IP Current Condition Start: 01/16/25 12:42 Freq: NEEDED Status: Active Protocol: Document 01/16/25 09:45 AB (Rec: 01/16/25 12:57 AB [id number]) Physical Therapy Current Condition Current Condition Evaluation Date 01/16/25 Treatment Diagnosis s/p R hip hemiarthroplasty; difficulty in walking Onset Date 01/15/25 M3 PT-IP Subjective Start: 01/16/25 12:42 Freq: NEEDED Status: Active Protocol: Document 01/23/25 13:30 AB (Rec: 01/23/25 16:49 AB [id number]) Subjective Physical Therapy Visit Type Type Treatment Note Visit Start Time 13:30 Visit Stop Time 13:45 Number of IT SYSTEMS ANALYST CONSULTANT Visits 0 Physical Therapy Visit Comments Patient Comments agreeable to do PT Therapy Pain Assessment Pain When Pain Assessed During Mobility Pain Present Pain Present Pain Reported Location R hip Scale Used pain scale not stated M4 PT-IP Mobility and Gait Start: 01/16/25 12:42 Freq: NEEDED Status: Active Protocol: Document 01/23/25 13:30 AB (Rec: 01/23/25 16:49 AB [id number]) PT-Bed Mobility Assessment Sit to Supine Sit to Supine Minimal Assistance,1 Person Assistance PT-Transfer Assessment Sit to and From Stand Sit to and from Stand Moderate Assistance,2 Person Assistance,Use of Upper Extremities Equipment Transfer Assistive Device None,Gait Belt Orthotic/Prosthetic Devices or Brace: No Transfers Transfer Destination Bed Transfer Technique ambulated Transfer Ability Level of Assist Moderate Assistance,2 Person Assistance,Use of Upper Extremities Comments Mobility Comments pt sitting on the chair and agreed to get up and walk. sit to stand mod Ax 2 and cues. pt ambulated in the hallway PURSE SEINER mod x 2 and max cues. pt requested to go back to bed. sit to supine min A and cues. positioned pt in bed. call light and table placed within reach. Gait Assessment Gait Gait Assistance Required: Moderate Assistance Distance (Feet) 100 Able to Maintain Weight Bearing Status Yes During Gait Assistive Devices Assistive Device None,Gait Belt Orthotic/Prosthetic Devices or Brace: No Gait Deviations General Gait Pattern Antalgic,Ataxic,Decreased Stride Length,Decreased Feet Clearance Factors Limiting Gait Function Factors Limiting Gait Function Decreased Activity Tolerance, Decreased Strength,Difficulty Following Directions,Limited Range of Motion,Pain,Poor Balance,Poor Safety Awareness M5 PT-IP Objective Assessments Start: 01/16/25 12:42 Freq: NEEDED Status: Active Protocol: Document 01/16/25 09:45 AB (Rec: 01/16/25 12:57 AB [id number]) Orientation Orientation/Cognition Level of Alertness Confusional State Orientation Name Language Function Ability Hard of Hearing Safety Awareness Decreased Safety Awareness Memory Description Short Term Impaired,Telephonic Rn Impaired Gross Range of Motion Lower Extremity ROM Assessment Within Functional Limits Strength Lower Extremity Strength Assessment Right Impaired Hip 3-/5 Knee 3+/5 Muscle Tone Muscle Tone WNL Yes M6 PT-IP Treatment Start: 01/16/25 12:42 Freq: NEEDED Status: Active Protocol: Document 01/23/25 13:30 AB (Rec: 01/23/25 16:49 AB [id number]) Physical Therapy Treatment Education Education Provided Safety M7 PT-IP Assessment and Plan Start: 01/16/25 12:42 Freq: NEEDED Status: Active Protocol: Document 01/23/25 13:30 AB (Rec: 01/23/25 16:49 AB [id number]) PT Summary Assessment and Plan Potential Rehabilitation Potential Fair Summary Impairments Pain,ROM,Strength,Balance, Coordination,Sensation,Tone, Cognition,Bed Mobility, Transfers,Gait,Activity Tolerance Progress Towards Goals Slow Progress due to Medical Issues,Slow Progress - Other Assessment Summary pt requiring mod A x 2 and max cues PURSE SEINER provided during ambulation. pt with dx Dementia affecting current mobility level and has decrease safety awareness and unable to follow hip precautions requiring constant assist and cues with all tasks. pt will require 24/7 assist. d/c plan: SNF vs memory care unit Goals Bed Mobility Goal Standby Assistance Transfer Goal Standby Assistance Gait Goal Standby Assistance Gait Distance 150 Other Goals ambulation providing PURSE SEINER or LRAD Days to Meet Goals 5 Frequency of Treatment Frequency Of Treatment Once a Day Treatment Plan Physical Therapy Treatment Plan Bed Mobility Training,Transfer Training,Gait Training, Therapeutic Exercise,Balance Retraining,Post Op Education, Discharge Planning Precautions Posterior Hip Precautions No Hip Flexion > 90 degrees,No Hip Internal Rotation,No Hip Adduction Weight Bearing Status Weight Bearing Status Weight Bear as Tolerated Allowed Weight Bearing Amount (enter % RLE WBAT or #) (%) Recommendations To Nursing Amount of Assist Needed 2 Person Assist Discharge Recommendations PT Discharge Recommendations Home with 26/04 Assist Available,Home Health,SNF Rehab Other Discharge Recommendations SNF vs memory care unit Transportation Needs at Discharge Wheelchair/Cabulance - PT assist 1-2
--- NOTE | 2025-01-23 13:43 | OT.IP.TRT ---
Current Diagnoses Fracture of unspecified part of neck of right femur, initial encounter for closed fracture (01/15/25) Unspecified intracapsular fracture of right femur, initial encounter for closed fracture (01/15/25) Presence of unspecified artificial hip joint (01/15/25) Surgery Performed Operation Date: 01/15/25 16:00 Actual Procedures p Hip posterior unipolar cemented(Right) - Radha Talbot MD Occupational Therapy Treatment Note M2 OT-IP Current Condition Start: 01/16/25 11:16 Freq: Status: Active Protocol: Document 01/16/25 11:17 [facility] (Rec: 01/16/25 11:33 [facility] Desktop) Occupational Therapy Current Condition Current Condition Evaluation Date 01/16/25 Treatment Diagnosis S/P Right ORIF with unipolar, posterior approach Post Operative Precautions Posterior Hip Precautions No Hip Flexion > 90 degrees,No Hip Internal Rotation,No Hip Adduction M3 OT- IP Subjective and Pain Start: 01/16/25 11:16 Freq: Status: Active Protocol: Document 01/23/25 14:38 [facility] (Rec: 01/23/25 14:46 [facility] Desktop) OT- Subjective Occupational Therapy Visit Type Type Treatment Note Visit Start Time 13:30 Visit Stop Time 13:43 Occupational Therapy Visit Comments Patient Comments Pt just finished eating and agreed to go for a walk with OT and PT. OT Pain Assessment Pain When Pain Assessed During Mobility Pain Present Pain Present Denied Pain Location R hip Pain Behaviors Facial Grimacing,Holding Area M4 OT- IP ADL's Start: 01/16/25 11:16 Freq: Status: Active Protocol: Document 01/23/25 14:38 [facility] (Rec: 01/23/25 14:46 [facility] Desktop) OT ADL-Grooming General Evaluation Grooming Ability Minimal Assistance Areas Needing Assistance Combing/Brushing Hair Comments OT Grooming Comments Assist to help comb the back of his hair. Pt needing YASMIN for completeness to wash his hands with a wash cloth. OT ADL-Dressing Comments OT Dressing Comments Not performed. OT ADL-Toileting General Evaluation Toileting Ability Total Assistance Comments OT Toileting Comments Durant in place, pt states does not have to use the toilet. M5 OT- IP IADL's Start: 01/16/25 11:16 Freq: Status: Active Protocol: Document 01/16/25 11:17 [facility] (Rec: 01/16/25 11:33 [facility] Desktop) OT-Instrumental Activities of Daily Living Deficits IADL Deficits Identified Deficits Home Safety Awareness Awareness of Need for Assistance at Home Decreased Awareness Ability to Problem Solve Emergency Unable to Problem Solve Situations Medication Management Medication Management Caregiver Administers Money Management Money Management Caregiver Provides Assistance Meal Preparation Meal Preparation Caregiver Provides Assist Elementary Reading Tutor Elementary Reading Tutor Caregiver Provides Assist M6 OT- IP Functional Cognition Start: 01/16/25 11:16 Freq: Status: Active Protocol: Document 01/23/25 14:38 [facility] (Rec: 01/23/25 14:46 [facility] Desktop) Cognitive Factors Limiting Selfcare Function Cognitive Ability Level of Alertness Alert,Confusional State Patient Orientation Name,Place Cognitive Comments Cognitive Assessment Comments Pt able to participate in therapy, needing cue to redirect at times, but able to follow commands. Pt likes to talk about his past. M7 OT- IP Mobility and Balance Start: 01/16/25 11:16 Freq: Status: Active Protocol: Document 01/23/25 14:38 [facility] (Rec: 01/23/25 14:46 [facility] Desktop) OT-Transfer Assessment Sit to and From Stand Sit to and from Stand Standby Assistance Transfers Transfer Ability Moderate Assistance,2 Person Assistance Technique Transfer Destination Bed,Chair Transfer Technique Stand Step Pivot Devices Transfer Assistive Devices None,Gait Belt Comments Mobility Comments Able to walk pt with hand held assist x2 to the hallway and back. Today pt appears more tired and needing more assist for his balance. OT- Balance Assessment Sitting Balance and Reactions Static Sitting Balance Ability Good Dynamic Sitting Balance Ability Good Standing Balance and Reactions Static Standing Balance Ability Fair Dynamic Standing Balance Ability Poor M8 OT- IP Objective Assessments Start: 01/16/25 11:16 Freq: Status: Active Protocol: Document 01/16/25 11:17 [facility] (Rec: 01/16/25 11:33 [facility] Desktop) OT Gross Range of Motion Upper Extremity Range of Motion Assessment Within Functional Limits OT Strength Comments Strength Comments BUE 4/5 grossly M9 OT- IP Assessment and Plan Start: 01/16/25 11:16 Freq: Status: Active Protocol: Document 01/23/25 14:38 [facility] (Rec: 01/23/25 14:46 [facility] Desktop) OT Summary Assessment and Plan Potential Rehabilitation Potential Good Analytic Complexity at Evaluation Moderate Summary OT Impairments Pain,Strength,Balance, Functional Cognition, Functional Mobility,Self- Feeding,Grooming,Dressing, Toileting,Bathing,Toilet Transfers,Shower Transfers, Activity Tolerance Progress Towards Goals Progressing Toward Goals,Slow Progress due to Pain Assessment Summary Pt able to walk with hand held assist x2 today. Pt a bit more fatigued and needing more physical assist today. Pt not needing or wanting to use the bathroom but agreed to get back into bed. Goals Self-Feeding Goal Independent Grooming Goal Independent Dressing Goal Moderate Assistance Toileting Goal Standby Assistance Bathing Goal Minimal Assistance Toilet Transfer Goal Standby Assistance Shower Transfer Goal Contact Guard Assistance Days to Meet Goals 17 Frequency of Treatment Other frequency 5x/week Treatment Plan OT Treatment Plan ADL Training,Functional Mobility,Patient/Family Education,Discharge Planning Discharge Recommendations OT Discharge Recommendations Home,Home with / Assist Available,Home Health,SNF Rehab Transportation Needs at Discharge Wheelchair/Cabulance
[2025-01-23 13:58] VITALS: BP 100/53; PULSE 67; RESP 12; TEMP 36.3; O2SAT 95
--- NOTE | 2025-01-23 14:20 | CM.DPNOTE ---
DCP Note APS investigator cash shortage Julianna Paiz jian [phone] arrived to interview pt. MEDICAL OFFICE MANAGER provided print outs of clinical information. APS investigator cash shortage shown to room, pt sleeping heavily. TAMMI Arana
[2025-01-23] MEDS: OLANZapine 2.5 MG TABLET 7.5 MG PO (19:56)
[2025-01-23] MEDS: DOCUSATE 100 MG CAPSULE PO (19:56)
[2025-01-23] MEDS: OXYCODONE IR 5 MG TABLET PO (19:57)
[2025-01-23] MEDS: ACETAMINOPHEN 325 MG TABLET 650 MG PO (19:59)
[2025-01-23 20:00] VITALS: BP 128/59; PULSE 55; RESP 18; TEMP 35.9; O2SAT 93
[2025-01-24] MEDS: SODIUM CHLORIDE 0.9% FLUSH 10 ML IV ×2 (08:40→20:08)
[2025-01-24] MEDS: QUETIAPINE 25 MG TABLET PO ×2 (08:40→20:08)
[2025-01-24] MEDS: FLUoxetine 10 MG CAPSULE PO (08:40)
[2025-01-24] MEDS: DOCUSATE 100 MG CAPSULE PO ×2 (08:40→20:07)
[2025-01-24] MEDS: ASPIRIN EC 81 MG TABLET PO ×2 (08:40→20:07)
[2025-01-24] MEDS: FINASTERIDE 5 MG TABLET PO (08:40)
[2025-01-24] MEDS: TAMSULOSIN 0.4 MG CAPSULE 0.8 MG PO (08:40)
[2025-01-24] MEDS: ACETAMINOPHEN 325 MG TABLET 650 MG PO ×2 (08:40→20:07)
--- NOTE | 2025-01-24 08:59 | PM.DS.IH.1 ---
History of Present Illness History of Present Illness Date Patient Seen: 01/24/25 Time Patient Seen: 08:59 Chief complaint: GLF with hip pain Narrative: 84-year-old male with worsening dementia who somewhat recently was placed in assisted living because of his ongoing cognitive issues apparently fell from bed and complained immediately of right-sided hip/groin pain. He was transported to [facility] Department where right-sided hip fracture was identified on imaging and he was admitted for surgical repair Past history includes the dementia, hypothyroidism (in the past not currently requiring thyroid replacement therapy) and lower urinary tract symptoms due to BPH, and has a required chronic catheterization due to bladder outlet obstructive issues, followed by Urology at [facility] Discharge Providers Provider Date of admission: 01/15/25 02:38 Discharge Date: 01/24/25 Primary care physician: Estuardo Hinton MD Consults: 01/15/25 02:17 Consult to General Surgery Stat Comment: Consulting Provider: Radha Talbot Reason for consultation: hip fracture Has provider been notified: Yes 01/15/25 07:48 Consult to Physician Routine Comment: Consulting Provider: Radha Talbot Reason for consultation: Hip fracture Has provider been notified: Yes 01/15/25 17:35 Consult to Anesthesiology Routine Comment: Consulting Provider: Anesthesiologist Reason for consultation: Regional block for post operative pain control 01/15/25 21:29 Consult to Discharge Planning Routine Comment: Consult to Occupational Therapy Evaluate & Treat Comment: Physician Instructions: Evaluate and treat Consult to Physical Therapy Evaluate & Treat Comment: Physician Instructions: post op DMITRI protocol Discharge provider: Estuardo Hinton MD Summary Hospital Course Discharge Diagnosis: 1. Closed right hip fracture status post ORIF January 15, 2025 2. Dementia with mild agitation 3. Acquired hypothyroidism 4. Urinary retention with inability to void 5. Chronic urinary catheterization Hospital Course: As above patient was admitted after falling in finding to have sustained a right femoral/hip fracture. He was taken to the OR by Orthopedic surgery who repaired his fracture. He did well postoperatively and in fact in part because of his dementia was up and about on his hip. Patient initially had no issues with his behavior due to his dementia. However as he had done in the outpatient setting eventually became a little bit agitated wanted to leave the building but was prevented from doing so. He required doses of lorazepam as well as haloperidol. Olanzapine was added to his regimen. He was still had some evidence of agitation despite the olanzapine. Quetiapine was added in addition to the olanzapine and this combination seem to be quite effective in avoiding significant agitation. Patient was still easily arousable and able to participate with activities including physical therapy as necessary. Of note he was up and around on his leg ambulating without any particular difficulty when more agitated. Patient will need to have chronic urinary catheterization because of his inability to empty his bladder on his own. For the moment that has a urethral catheter but as an outpatient further discussions can be held with the urology regarding other potential options including suprapubic catheter etcetera Status at Discharge Cognitive/behavioral status at discharge: at baseline, confused Functional status at discharge: uses cane/walker Overall status at discharge: patient is progressing back to baseline Time Spent with Patient Time spent: Greater than 30 minutes Exam Vital Signs (past 8 hours): Fraction of Inspired Oxygen 36 SaO2/FiO2 Ratio 266 Oxygen Delivery Method Room Air Oxygen Flow Rate 0 Objective Labs 01/21/25 04:40 01/21/25 04:40 [facility] Medical History Urinary retention Durant catheter in place Obstructive uropathy Complex renal cyst Dementia Acquired hypothyroidism Surgical History Anesthesia History of hernia repair Family History Father Cancer Mother Bronchitis Social History household members: none Smoking Status: Never smoker alcohol intake: never caffeine: Yes Discharge Assessment & Plan Assessment and Plan Plan of Treatment: Patient will need ongoing detention care for rehabilitation after his surgery for his fractured hip Once he has completed his rehabilitation he will need to be placed in a memory care facility due to his ongoing dementia with mild behavioral disturbance (he had walked out of the previous assisted living facility multiple times prior to falling as above) Discharge Plan Discharge Plan Patient Disposition: SNF Transfer to: [facility] Consult as needed: Dental, Hearing, Mental health, Podiatry and Vision Discharge orders & Medications Prescriptions: New aspirin 81 mg Tablet,Delayed Release (Dr/Ec) 81 mg PO BID Qty: 112 0RF Rx Instructions: Stop date is 02/26/2025 oxycodone 5 mg Tablet 5 mg PO Q3H PRN (Reason: Pain, Moderate (4-6)) Qty: 15 0RF olanzapine 2.5 mg tablet 2.5 mg PO DAILY Qty: 30 0RF olanzapine 7.5 mg tablet 7.5 mg PO BEDTIME Qty: 30 0RF polyethylene glycol 3350 17 gram Powder In Packet 17 g PO DAILY Qty: 30 0RF fluoxetine [Prozac] 10 mg Capsule 10 mg PO DAILY Qty: 30 0RF quetiapine 25 mg Tablet 25 mg PO BID Qty: 60 0RF Continued magnesium hydroxide [Milk of Magnesia] 400 mg/5 mL Suspension 400 mg PO PRN PRN (Reason: Constipation) acetaminophen tablet 650 mg PO PRN PRN (Reason: pain/fever) finasteride 5 mg tablet 5 mg PO DAILY Qty: 90 3RF tamsulosin 0.4 mg capsule 0.8 mg PO DAILY Qty: 180 3RF Discontinued citalopram 20 mg tablet 20 mg PO DAILY Qty: 90 3RF ciprofloxacin HCl 500 mg tablet 500 mg PO BID lorazepam [Ativan] 0.5 mg Tablet 0.5 mg PO Q4HR PRN (Reason: Agitation) Follow up/Referrals: Estuardo Hinton MD [Primary Care Provider] - Discharge Health Status Multidrug resistant organism: No MDRO Precautions: [place] Diet/Activity/Treatments Diet: Diet as Tolerated Liquid consistency: Normal/Thin Food texture: Regular [facility] Reason for rehabilitation: Post-operative therapy Rehab type: Physical therapy, Occupational therapy and Speech therapy Visit Report/Discharge Packet Stand Alone Forms: Patient Portal/API Discharge Data Primary Care Provider: Estuardo Hinton Quality VTE Deep Vein Thrombosis/Pulmonary Embolism Present on Admission: No IH PROFEE Charge Codes Discharge inpatient/observation: [id number]
--- NOTE | 2025-01-24 11:36 | PC.NURSE ---
Day shift- I recieved report on Pt this morning from night nurse. Nurse stated that Pt took meds and then slept entire night. So far this shift Pt was napping @the beginning of shift then woke up for breakfast, and took meds and has been calm and cooperative all morning w/care. I also took care of Pt yesterday on 01/23 and Pt was in and out of sleep all day. Pt woke for meals and ate 100% of lunch and dinner. Pt was calm and cooperative all day yesterday as well.
--- NOTE | 2025-01-24 12:56 | CM.DPC ---
DCP Cont. Reviewed EMR and team rounds for status updates. Several calls made with [facility] admin today to clarify if pt is being returned to [facility], or moving to Memory Care at [facility]. [facility] is not calling this CHILDBIRTH AND INFANT CARE TEACHER with updates now, and is going through the [facility] Director, Nel. Nel has decided to accept him tomorrow to [facility] for rehab. Notified Dr. Hinton that pt is not discharging today, but tomorrow.
--- NOTE | 2025-01-24 14:30 | PT.IPTN ---
Current Diagnoses Fracture of unspecified part of neck of right femur, initial encounter for closed fracture (01/15/25) Unspecified intracapsular fracture of right femur, initial encounter for closed fracture (01/15/25) Presence of unspecified artificial hip joint (01/15/25) Surgery Performed Operation Date: 01/15/25 16:00 Actual Procedures p Hip posterior unipolar cemented(Right) - Radha Talbot MD Physical Therapy Treatment Note M2 PT-IP Current Condition Start: 01/16/25 12:42 Freq: NEEDED Status: Active Protocol: Document 01/16/25 09:45 AB (Rec: 01/16/25 12:57 AB [id number]) Physical Therapy Current Condition Current Condition Evaluation Date 01/16/25 Treatment Diagnosis s/p R hip hemiarthroplasty; difficulty in walking Onset Date 01/15/25 M3 PT-IP Subjective Start: 01/16/25 12:42 Freq: NEEDED Status: Active Protocol: Document 01/24/25 14:30 AB (Rec: 01/24/25 16:37 AB [id number]) Subjective Physical Therapy Visit Type Type Treatment Note Visit Start Time 14:30 Visit Stop Time 15:05 Number of COOKER MEAL Visits 0 Physical Therapy Visit Comments Patient Comments agreeable to do PT Therapy Pain Assessment Pain When Pain Assessed During Mobility Pain Present Pain Present Pain Reported Location R hip Scale Used pain scale not stated Pain Management Techniques Distraction,Modification of Treatment,Re-positioning M4 PT-IP Mobility and Gait Start: 01/16/25 12:42 Freq: NEEDED Status: Active Protocol: Document 01/24/25 14:30 AB (Rec: 01/24/25 16:37 AB [id number]) PT-Bed Mobility Assessment Supine to Sit Supine to Sit Standby Assistance Sit to Supine Sit to Supine Minimal Assistance,1 Person Assistance PT-Transfer Assessment Sit to and From Stand Sit to and from Stand Minimal Assistance,Moderate Assistance,1 Person Assistance ,Use of Upper Extremities Comments Mobility Comments pt in bed and agreeable to get up. pt able to follow directions better today but still needs cues due to decrease safety awareness. completed supine to sit HOB elevated SBA. pt can be impulsive. sit to stand min A and max cues. pt calm this tx session and able to follow use of FWW. ambulated using fWW initial mod A but after ~ 20 ft was able to ambulate min A and cues. pt completed ~ 150 ft of ambulation. assisted pt back to his room and sat on EOB. completed sit to supine min A with RLE as pt tends to IR and adduct beyond midline. position pt in bed. pillow in between LE. call light and table placed within reach. Gait Assessment Gait Gait Assistance Required: Minimum Assistance,Moderate Assistance Distance (Feet) 150 Able to Maintain Weight Bearing Status Yes During Gait Assistive Devices Assistive Device Gait Belt,Front Wheeled Walker Orthotic/Prosthetic Devices or Brace: No Gait Deviations General Gait Pattern Ataxic,Decreased Stride Length ,Decreased Feet Clearance Factors Limiting Gait Function Factors Limiting Gait Function Decreased Activity Tolerance, Decreased Strength,Difficulty Following Directions,Limited Range of Motion,Pain,Poor Balance,Poor Safety Awareness M5 PT-IP Objective Assessments Start: 01/16/25 12:42 Freq: NEEDED Status: Active Protocol: Document 01/16/25 09:45 AB (Rec: 01/16/25 12:57 AB [id number]) Orientation Orientation/Cognition Level of Alertness Confusional State Orientation Name Language Function Ability Hard of Hearing Safety Awareness Decreased Safety Awareness Memory Description Short Term Impaired,Family Law Mediator Impaired Gross Range of Motion Lower Extremity ROM Assessment Within Functional Limits Strength Lower Extremity Strength Assessment Right Impaired Hip 3-/5 Knee 3+/5 Muscle Tone Muscle Tone WNL Yes M6 PT-IP Treatment Start: 01/16/25 12:42 Freq: NEEDED Status: Active Protocol: Document 01/24/25 14:30 AB (Rec: 01/24/25 16:37 AB [id number]) Physical Therapy Treatment Education Education Provided Precautions,Safety M7 PT-IP Assessment and Plan Start: 01/16/25 12:42 Freq: NEEDED Status: Active Protocol: Document 01/24/25 14:30 AB (Rec: 01/24/25 16:37 AB [id number]) PT Summary Assessment and Plan Potential Rehabilitation Potential Fair Summary Impairments Pain,ROM,Strength,Balance, Coordination,Sensation,Tone, Cognition,Bed Mobility, Transfers,Gait,Activity Tolerance Progress Towards Goals Slow Progress - Other Assessment Summary pt calm today and able to follow instructions better and was able to use FWW without agitation today. completed ~ 150 ft using FWW min to mod A and cues. pt will benefit from SNF rehab to improve overall mobility independence. Goals Bed Mobility Goal Standby Assistance Transfer Goal Standby Assistance Gait Goal Standby Assistance Gait Distance 150 Other Goals ambulation providing QUALITY CONTROL MICROBIOLOGIST or LRAD Days to Meet Goals 5 Frequency of Treatment Frequency Of Treatment Once a Day Treatment Plan Physical Therapy Treatment Plan Bed Mobility Training,Transfer Training,Gait Training, Therapeutic Exercise,Balance Retraining,Post Op Education, Discharge Planning Precautions Posterior Hip Precautions No Hip Flexion > 90 degrees,No Hip Internal Rotation,No Hip Adduction Weight Bearing Status Weight Bearing Status Weight Bear as Tolerated Allowed Weight Bearing Amount (enter % RLE WBAT or #) (%) Recommendations To Nursing Amount of Assist Needed 2 Person Assist Discharge Recommendations PT Discharge Recommendations Home with 26/04 Assist Available,Home Health,SNF Rehab Other Discharge Recommendations SNF vs memory care unit Transportation Needs at Discharge Wheelchair/Cabulance - PT assist 1-2
--- NOTE | 2025-01-24 14:38 | OT.IP.TRT ---
Current Diagnoses Fracture of unspecified part of neck of right femur, initial encounter for closed fracture (01/15/25) Unspecified intracapsular fracture of right femur, initial encounter for closed fracture (01/15/25) Presence of unspecified artificial hip joint (01/15/25) Surgery Performed Operation Date: 01/15/25 16:00 Actual Procedures p Hip posterior unipolar cemented(Right) - Radha Talbot MD Occupational Therapy Treatment Note M2 OT-IP Current Condition Start: 01/16/25 11:16 Freq: Status: Active Protocol: Document 01/16/25 11:17 [facility] (Rec: 01/16/25 11:33 [facility] Desktop) Occupational Therapy Current Condition Current Condition Evaluation Date 01/16/25 Treatment Diagnosis S/P Right ORIF with unipolar, posterior approach Post Operative Precautions Posterior Hip Precautions No Hip Flexion > 90 degrees,No Hip Internal Rotation,No Hip Adduction M3 OT- IP Subjective and Pain Start: 01/16/25 11:16 Freq: Status: Active Protocol: Document 01/24/25 15:30 [facility] (Rec: 01/24/25 15:39 [facility] Desktop) OT- Subjective Occupational Therapy Visit Type Type Treatment Note Visit Start Time 14:35 Visit Stop Time 14:43 Occupational Therapy Visit Comments Patient Comments Pt agreed to get up to take a walk with OT and PT. OT Pain Assessment Pain When Pain Assessed During Mobility Pain Present Pain Present Pain Reported Location R hip Pain Behaviors Facial Grimacing,Holding Area, Wincing M4 OT- IP ADL's Start: 01/16/25 11:16 Freq: Status: Active Protocol: Document 01/24/25 15:30 [facility] (Rec: 01/24/25 15:39 [facility] Desktop) OT ADL-Grooming General Evaluation Grooming Ability Standby Assistance Areas Needing Assistance Combing/Brushing Hair OT ADL-Dressing General Eval Upper Body Dressing Ability Minimal Assistance Comments OT Dressing Comments Pt able to get his arms into the gown. OT ADL-Toileting General Evaluation Toileting Ability Total Assistance Comments OT Toileting Comments Durant in place, pt states does not have to use the toilet. M5 OT- IP IADL's Start: 01/16/25 11:16 Freq: Status: Active Protocol: Document 01/16/25 11:17 [facility] (Rec: 01/16/25 11:33 [facility] Desktop) OT-Instrumental Activities of Daily Living Deficits IADL Deficits Identified Deficits Home Safety Awareness Awareness of Need for Assistance at Home Decreased Awareness Ability to Problem Solve Emergency Unable to Problem Solve Situations Medication Management Medication Management Caregiver Administers Money Management Money Management Caregiver Provides Assistance Meal Preparation Meal Preparation Caregiver Provides Assist Crime Specialist Crime Specialist Caregiver Provides Assist M6 OT- IP Functional Cognition Start: 01/16/25 11:16 Freq: Status: Active Protocol: Document 01/24/25 15:30 [facility] (Rec: 01/24/25 15:39 [facility] Desktop) Cognitive Factors Limiting Selfcare Function Cognitive Ability Level of Alertness Alert Cognitive Comments Cognitive Assessment Comments Pt able to follow commands and pleasant. Pt easily redirected and very talkative about his family. Pt agreed to have pillow placed between his legs for his hip precautions. Pt joking around and also letting go of the FWW and needing reminders to hold the FWW at all times. M7 OT- IP Mobility and Balance Start: 01/16/25 11:16 Freq: Status: Active Protocol: Document 01/24/25 15:30 [facility] (Rec: 01/24/25 15:39 [facility] Desktop) OT- Bed Mobility Assessment Sit to Supine Sit to Supine Assist Standby Assistance OT-Transfer Assessment Sit to and From Stand Sit to and from Stand Minimal Assistance Transfers Transfer Ability Minimal Assistance,Moderate Assistance,1 Person Assistance Technique Transfer Destination Bed Transfer Technique Stand Step Pivot Devices Transfer Assistive Devices Gait Belt,Front Wheeled Walker Comments Mobility Comments YASMIN to stand to the FWW. Pt needing YASMIN to MODA for balance with the FWW and able to walk in the hallway. Pt needing cues to hold the FWW at all times. OT- Balance Assessment Sitting Balance and Reactions Static Sitting Balance Ability Good Dynamic Sitting Balance Ability Good Standing Balance and Reactions Static Standing Balance Ability Fair Dynamic Standing Balance Ability Fair M8 OT- IP Objective Assessments Start: 01/16/25 11:16 Freq: Status: Active Protocol: Document 01/16/25 11:17 [facility] (Rec: 01/16/25 11:33 [facility] Desktop) OT Gross Range of Motion Upper Extremity Range of Motion Assessment Within Functional Limits OT Strength Comments Strength Comments BUE 4/5 grossly M9 OT- IP Assessment and Plan Start: 01/16/25 11:16 Freq: Status: Active Protocol: Document 01/24/25 15:30 [facility] (Rec: 01/24/25 15:39 [facility] Desktop) OT Summary Assessment and Plan Potential Rehabilitation Potential Good Analytic Complexity at Evaluation Moderate Summary OT Impairments Pain,Strength,Balance, Functional Cognition, Functional Mobility,Self- Feeding,Grooming,Dressing, Toileting,Bathing,Toilet Transfers,Shower Transfers, Activity Tolerance Progress Towards Goals Progressing Toward Goals Assessment Summary Pt able to walk with the FWW with one person assist. Pt is cooperative but need redirection. Pt needing reminders of his hip precautions. Pt to go to skilled rehab when medically stable and benefit from memory care afterwards. Goals Self-Feeding Goal Independent Grooming Goal Independent Dressing Goal Moderate Assistance Toileting Goal Standby Assistance Bathing Goal Minimal Assistance Toilet Transfer Goal Standby Assistance Shower Transfer Goal Contact Guard Assistance Days to Meet Goals 16 Frequency of Treatment Other frequency 5x/week Treatment Plan OT Treatment Plan ADL Training,Functional Mobility,Patient/Family Education,Discharge Planning Discharge Recommendations OT Discharge Recommendations Home with / Assist Available,Home Health,SNF Rehab Transportation Needs at Discharge Private Vehicle,Wheelchair/ Cabulance
[2025-01-24 16:14] VITALS: BP 122/56; PULSE 76; RESP 14; TEMP 36.4; O2SAT 98
[2025-01-24 20:00] VITALS: BP 141/55; PULSE 80; RESP 18; TEMP 36.2; O2SAT 98
[2025-01-24] MEDS: OLANZapine 2.5 MG TABLET 7.5 MG PO (20:07)
--- NOTE | 2025-01-25 07:39 | PM.PN.IH.1 ---
Subjective Subjective Date Patient Seen: 01/24/25 Time Patient Seen: 08:00 Interval history: Patient with uneventful night overnight No additional issues with agitation or behavior. Slept off and on but easily arousable to eat meals take medications etcetera Exam Vital Signs (past 8 hours): Fraction of Inspired Oxygen 36 SaO2/FiO2 Ratio 266 Oxygen Delivery Method Room Air Oxygen Flow Rate 0 Objective Labs 01/21/25 04:40 01/21/25 04:40 PFS Medical History Urinary retention Durant catheter in place Obstructive uropathy Complex renal cyst Dementia Acquired hypothyroidism Surgical History Anesthesia History of hernia repair Family History Father Cancer Mother Bronchitis Social History household members: none Smoking Status: Never smoker alcohol intake: never caffeine: Yes Assessment & Plan Assessment & Plan narrative: 1. Postop day 9 Status post ORIF right unipolar hip replacement due to fracture-continue postoperative management as per Orthopedic surgery. He will continue with a baby aspirin twice daily for 6 weeks per ortho. We will continue with pain control. His mobility is improving. Ortho has signed off. 2. 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 He will be discharged from hospital with Durant catheter in place 3. Dementia-patient is sedated but easily arousable on participates in activities taking medications etcetera with the current medications. No change in meds for today 4. VTE prophylaxis-as per Orthopedic surgery, currently aspirin 81 mg b.i.d. for 6 weeks 5. Disposition-to halfway when accepting facility can be found with bed availability etcetera. Patient is medically ready for discharge at any time, in my opinion Time-Based Coding :: [TOTAL MINUTES] spent with patient and on the chart (including review of chart, obtaining history, exam, reviewing outside data, placing orders, documenting exam and treatment plan, and counseling patient) on [DATE]. Quality VTE Deep Vein Thrombosis/Pulmonary Embolism Present on Admission: No PROFEE Design Sales Consultant Document charge(s): Yes Charge Codes Subsequent inpatient/observation care: [id number]
[2025-01-25 09:00] VITALS: BP 124/57; PULSE 84; RESP 16; TEMP 36.6; O2SAT 94
--- NOTE | 2025-01-25 09:52 | CM.DPNOTE ---
Secure emailed pt's d/c summary, signed med list, script, MD FARIDEH orders to [facility] to review for plan of transport today around [id number]. Updated GRINDER SET UP OPERATOR GEAR TOOL and RN and provided number to call report per [facility] request. TAMMI Mccoy
[2025-01-25] MEDS: TAMSULOSIN 0.4 MG CAPSULE 0.8 MG PO (10:11)
[2025-01-25] MEDS: DOCUSATE 100 MG CAPSULE PO (10:11)
[2025-01-25] MEDS: SODIUM CHLORIDE 0.9% FLUSH 10 ML IV (10:11)
[2025-01-25] MEDS: QUETIAPINE 25 MG TABLET PO (10:11)
[2025-01-25] MEDS: FINASTERIDE 5 MG TABLET PO (10:11)
[2025-01-25] MEDS: ASPIRIN EC 81 MG TABLET PO (10:11)
[2025-01-25] MEDS: FLUoxetine 10 MG CAPSULE PO (10:11)
--- NOTE | 2025-01-25 11:12 | CM.DPC ---
DCP Cont. Reviewed EMR and team rounds for status updates. Pt [facility] been [facility] will transport at 11:15am. D/c clinicals, scrips, and PASSAR faxed. No further CM needs indicated at this time.
--- NOTE | 2025-01-25 12:09 | PC.NURSE ---
RN called and gave report to Facility as pt was leaving with wheel chair and facility transporter,
== END 2025-01-25 11:10 | DRG 522 ==
LOC: ED 01:36 → AC 02:39
PROVIDERS: Family Medicine; Orthopaedic Surgery; Admitting Provider Family Medicine; Emergency Provider Emergency Medicine; Family Provider Family Medicine; PCP Internal Medicine; Referring Provider Emergency Medicine; Visit Provider Internal Medicine
PROC: 0SRR0JZ Replacement of Right Hip Joint, Femoral Surface with Synthetic Substitute, Open Approach (ICD-10-PCS; CPT 27125; principal; 2025-01-15 16:00)
DX: S72.011A Unspecified intracapsular fracture of right femur, initial encounter for closed fracture (principal); F03.911 Unspecified dementia, unspecified severity, with agitation; N13.8 Other obstructive and reflux uropathy; W18.30XA Fall on same level, unspecified, initial encounter; Y93.01 Activity, walking, marching and hiking; Y92.099 Unspecified place in other non-institutional residence as the place of occurrence of the external cause; R33.8 Other retention of urine; E03.8 Other specified hypothyroidism; N40.1 Benign prostatic hyperplasia with lower urinary tract symptoms
CPT/HCPCS: 36415; 71045; 72170; 73502; 80048; 80053; 81001; 85025; 93005; 93010; 94762; 96374; 96376; 97116; 97162; 97166; 97530; 97535; 99222; 99232; 99233; 99238; 99283; 99284; C1776; C1713; J0131; J0690; J1171; J1630; J2060; J2704; J3010; J3490

== ENCOUNTER 2025-02-01 08:06 | Emergency (ER) | payer MEDICARE, SELFPAY ==
[2025-01-15 04:22] VITALS: BMI 21.4
[2025-02-01] VITALS (21 sets, daily range): BP systolic 92–144; BP diastolic 47–60; PULSE 57–84; RESP 12–30; TEMP 36.8; O2SAT 83–98
--- NOTE | 2025-02-01 08:25 | EKG_ITS ---
[facility] [address] [place] [address] Test Date: 2025-02-01 Pat Name: Carmelo Mejias Department: [facility] Room: Gender: Male Wheel Roller: JAMES : 1940 Requested By: Order Number: [id number] Reading MD: Aramis Tejada Measurements Intervals [place] Rate: 79 P: 42 [place]: 114 QRS: 53 QRSD: 82 T: 72 QT: 408 QTc: 467 Interpretive Statements Sinus rhythm with frequent premature ventricular complexes ST & T wave abnormality, consider lateral ischemia Electronically Signed On 02-01-2025 17:06:11 PDT by Aramis Tejada
--- NOTE | 2025-02-01 08:25 | DI.CT.S_ITS ---
PROCEDURE: CT HEAD/BRAIN WO CON INDICATIONS: falling multiple times TECHNIQUE: Noncontrast 4.5 mm thick angled axial sections acquired from the foramen magnum to the vertex, with coronal and sagittal reformats. For radiation dose reduction, the following was used: automated exposure control, adjustment of mA and/or kV according to patient size. COMPARISON: None. FINDINGS: Image quality: Diagnostic. CSF spaces: Basal cisterns are patent. No extra-axial fluid collections. The ventricles are symmetric in size and shape. Brain: No intracranial bleeds or mass effect. There is cerebral volume loss, with resultant ventricular and sulcal prominence. There are periventricular and deep white matter chronic small vessel ischemic changes. There is intracranial internal carotid artery atherosclerosis. Skull and face: Calvarium and visualized facial bones appear intact, without suspicious lesions. Sinuses: Visualized sinuses and mastoids are clear. IMPRESSION: Relatively prominent microvascular atherosclerotic change in the deep white matter of each hemisphere but no acute disease is present and no intracranial hemorrhage is found. Dictated by: Liam Michel M.D. on 02/01/2025 at 9:07 Approved by: Liam Michel M.D. on 02/01/2025 at 9:08
--- NOTE | 2025-02-01 08:27 | DI.CT.S_ITS ---
PROCEDURE: CT CERVICAL SPINE WO CON INDICATIONS: fall TECHNIQUE: Noncontrast 3 mm thick sections acquired from the skull base to the T4 level. Sagittal and coronal reformats were then constructed. For radiation dose reduction, the following was used: automated exposure control, adjustment of mA and/or kV according to patient size. COMPARISON: None. FINDINGS: Image quality: Excellent. Bones: No fractures or dislocations. Visualized superior ribs are intact. Soft tissues: Prevertebral soft tissues are normal in thickness. No paravertebral hematomas. No apical pneumothoraces. IMPRESSION: No displaced fracture or traumatic subluxation. Dictated by: Liam Michel M.D. on 02/01/2025 at 9:09 Approved by: Liam Michel M.D. on 02/01/2025 at 9:10
--- NOTE | 2025-02-01 08:53 | DI.RAD.S_ITS ---
PROCEDURE: XR HIP W PEL IF DONE RT 2V INDICATIONS: fell [facility] care, rt hip pain, past replacement TECHNIQUE: AP pelvis with lateral view(s) of the right hip(s). COMPARISON: [facility], , XR HIP W PEL IF DONE RT 2V, 01/15/2025, 21:53. FINDINGS: Bones: No fractures or dislocations. Pelvic ring appears intact. No suspicious bony lesions. Right hip arthroplasty. Hardware is intact without hardware fracture or periprosthetic lucency to suggest loosening. Alignment is stable. Soft tissues: The visualized bowel gas pattern is normal. No suspicious soft tissue calcifications. IMPRESSION: No visualized acute fracture or dislocation. However, if clinical concern and/or pain persist, short interval imaging followup in 7-10 days is recommended, as occult injury cannot be definitively excluded. Dictated by: Laura Marsh M.D. on 02/01/2025 at 10:09 Approved by: Laura Marsh M.D. on 02/01/2025 at 10:09
[2025-02-01 09:14] LABS: Add Manual Diff / Slide Review NO; Basophils Absolute Auto 0 /uL (0-100); Basophils Percent Auto 0.5 % (0-2); Eosinophils Absolute Auto 0 /uL (0-450); Eosinophils Percent Auto 0.1 % (2-4); Hemoglobin 10.9 g/dL (13.5-17.5); Lymphocytes Absolute Auto 600 /uL (1100-4500); Lymphocytes Percent Auto 10.9 % (25-40); Mean Corpuscular HGB Conc 35.3 % (30-36); Mean Corpuscular Volume 93.6 fL (80-100); Monocytes Absolute Auto 600 /uL (0-900); Monocytes Percent Auto 12.7 % (3-14); Neutrophils Absolute Auto 3900 /uL (1500-7000); Neutrophils Percent Auto 75.8 % (50-75); Platelet Count 211 X10^3/uL (150-400); Red Blood Cell Count 3.31 X10^6/uL (4.5-5.9); Red Cell Distribution Width 14.5 % (11.6-14.8); White Blood Cell Count 5.1 X10^3/uL (4.5-11.0)
[2025-02-01 09:16] LABS: HEMOLYSIS < 15 (0-50)
[2025-02-01 09:21] LABS: Alanine Aminotransferase 21 IU/L (<50); Albumin 3.3 g/dL (3.5-5.0); Albumin Globulin Ratio 1.4 (1.0-2.8); Alkaline Phosphatase 41 U/L (38-126); Aspartate Aminotransferase 38 IU/L (17-59); BUN Creatinine Ratio 28.2 (6-22); Bilirubin Total 0.4 mg/dL (0.2-1.3); Blood Urea Nitrogen 22 mg/dL (9-20); Calcium 8.3 mg/dL (8.4-10.2); Carbon Dioxide 26 mmol/L (22-32); Chloride 108 mmol/L (98-107); Estimated Glomerular Filt Rate > 60 mL/min (>60); Globulin 2.3 g/dL (1.7-4.1); Glucose 94 mg/dL (70-99); Potassium 3.6 mmol/L (3.4-5.1); Sodium 138 mmol/L (137-145); Total Protein 5.6 g/dL (6.3-8.2)
--- NOTE | 2025-02-01 10:04 | ED.HEATRA ---
HPI - Head Injury General Chief complaint: Head Injury Stated complaint: Head injury,fell 3 times last 15 hours,no thinners Time Seen by Provider: 02/01/25 08:22 History of Present Illness HPI Narrative: This 84-year-old male presents to the emergency department with his son with a history that he was recently moved into [facility] from a rehab facility where he was rehabbing from a right hip replacement. He has had 3 separate falling episodes at [facility] in the past 24 hours. During at least 1 of these falls he hit his head but had no loss of consciousness. He does have some right hip pain. Related Data Home Medications Medication Instructions Recorded Confirmed acetaminophen 650 mg PO PRN PRN pain/fever 01/15/25 01/15/25 magnesium hydroxide 400 mg/5 mL 400 mg PO PRN PRN Constipation 01/15/25 01/15/25 oral suspension (Milk of Magnesia) Previous Rx's Medication Instructions Recorded finasteride 5 mg tablet 5 mg PO DAILY #90 tabs 10/23/24 tamsulosin 0.4 mg capsule 0.8 mg (2 x 0.4 mg) PO DAILY #180 10/23/24 caps aspirin 81 mg tablet,delayed 81 mg PO BID #112 tabs 01/17/25 release oxycodone 5 mg tablet 5 mg PO Q3H PRN Pain, Moderate 01/17/25 (4-6) #15 tabs fluoxetine 10 mg capsule (Prozac) 10 mg PO DAILY #30 caps 01/24/25 polyethylene glycol 3350 17 gram 17 g PO DAILY Constipation #30 ea 01/24/25 oral powder packet olanzapine 2.5 mg tablet 2.5 mg PO DAILY #30 tabs 01/25/25 olanzapine 7.5 mg tablet 7.5 mg PO BEDTIME #30 tabs 01/25/25 quetiapine 25 mg tablet 25 mg PO BID #60 tabs 01/25/25 Allergies Allergy/AdvReac Type Severity Reaction Status Date / Time No Known Drug Allergies Allergy Verified 02/01/25 08:24 Review of Systems Review of Systems Narrative: All other systems are negative except as below Constitutional Comments: Malaise secondary to frequent falling episodes x3, hitting head and right hip Eyes Eyes: Reports system reviewed and no additional complaints, except as documented ENT Ears, Nose, Mouth, and Throat: Reports system reviewed and no additional complaints, except as documented Cardiovascular Comments: Son mentions that the patient had a slow heart rate last evening. Patient denies any chest pain. Respiratory Respiratory: Reports system reviewed and no additional complaints, except as documented Gastrointestinal Gastrointestinal: Reports system reviewed and no additional complaints, except as documented Genitourinary Genitourinary: Reports system reviewed and no additional complaints, except as documented Musculoskeletal Comments: Patient complains of right hip pain and had recent right hip replacement. Neurologic Comments: Patient did hit head and at least 1 of the falls but had no reported loss of consciousness after any of the falls. He has shown no unilateral weakness or paresthesia. Psychiatric Comments: Patient has been diagnosed with dementia Patient History Medical History Urinary retention Durant catheter in place Obstructive uropathy Complex renal cyst Dementia Acquired hypothyroidism Surgical History Anesthesia History of hernia repair Family History Father Cancer Mother Bronchitis Social History household members: none Smoking Status: Unknown if ever smoked alcohol intake: never caffeine: Yes Smoking Status: Unknown if ever smoked Exam Initial Vital Signs Initial Vital Signs: Vital Signs Pulse Rate 84 02/01/25 08:14 Pulse Oximetry 97 02/01/25 08:14 Const General: frail appearing Other: Elderly male in no apparent distress but with apparent dementia. Can answer some questions simply. HENMT HENMT Other: No evidence of trauma. No open scalp wounds. Eyes General: Yes appearance normal, both eyes and all related structures Neck Other: No significant tenderness range of motion not attempted prior to CT Chest Other: Nontender clear breath sounds Resp Other: Clear breath sounds no chest tenderness Cardio Other: Slow rhythm with frequent ectopic beats GI Other: Nontender adequate bowel sounds Back/Spine/Pelvis Other: Mild to moderate right hip tenderness, laterally. Neuro General: patient alert and patient awake Other: Oriented to person and place Extrem Other: Right lateral hip tenderness, guarded range of motion. Intact in V distally. Psych Other: Patient appears to have moderate dementia. Course Course Course Narrative: This 84-year-old male who recently underwent a right hip replacement roughly 3 weeks ago and was in the rehab facility and then recently move to memory Care had 3 separate falling episodes yesterday according to his son. During 1 or more of these falling episodes he hit his head but had no loss of consciousness. He did have some right lateral hip tenderness after the falls as well. Found to have negative CT head and Cspine . right lateral hip was negative. Found on lab work-up to have a troponin of 3.83 which was elevated. It was felt that the patient would require admission to get serial troponins and possibly repeat EKG pat. Discussed the case with Dr. Andujar the patient's regular physician and he wanted the patient at a facility with an available desizing machine operator head end and he stated [facility] not have a desizing machine operator head end he did not feel comfortable keeping the patient here. Scheduled had no beds. Neither did many other hospitals down the [facility]. The 1st hospital with a bed in an desizing machine operator head end was [facility] and the patient was accepted in transfer to [facility] by Dr. Lopez. Orders Ordered: ED Orders 02/01/25 08:25 CT head/brain wo con Stat EKG-12 Lead Stat 02/01/25 08:27 CT cervical spine wo con Stat 02/01/25 08:53 XR hip w pel if done RT 2V Stat 02/01/25 08:59 CBC Auto Diff [Complete Blood Count AUTO DIFF] Stat CMP [Comprehensive Metabolic Panel] Stat Troponin I Stat 02/01/25 10:25 Urinalysis and Microscopic Stat Urine Culture Stat 02/01/25 10:50 Trop I [Troponin I] Stat Discontinued Medications Morphine Sulfate (Morphine 2 Mg/Ml Inj) 2 mg IV NOW ONE Stop: 02/01/25 10:11 Last Admin: 02/01/25 10:15 Dose: 2 mg Documented By: YASMIN Ondansetron HCl (Ondansetron 4 Mg/2 Ml Inj) 4 mg IV NOW ONE Stop: 02/01/25 10:11 Last Admin: 02/01/25 10:15 Dose: 4 mg Documented By: YASMIN Vital Signs Vital signs: Vital Signs - 8 hr 02/01/25 08:14 02/01/25 08:16 02/01/25 08:16 Temperature Pulse Rate 84 83 Respiratory Rate Blood Pressure 109/53 L Pulse Oximetry 97 98 Oxygen Delivery Method 02/01/25 08:17 02/01/25 08:30 02/01/25 08:30 Temperature 98.2 F Pulse Rate 84 77 Respiratory Rate 17 Blood Pressure 109/53 L 106/52 L Pulse Oximetry 95 98 Oxygen Delivery Method Room Air 02/01/25 08:45 02/01/25 08:45 02/01/25 09:00 Temperature Pulse Rate 74 69 Respiratory Rate Blood Pressure 92/47 L Pulse Oximetry 83 L 97 Oxygen Delivery Method 02/01/25 09:00 02/01/25 09:19 02/01/25 09:19 Temperature Pulse Rate 78 Respiratory Rate Blood Pressure 107/51 L 120/55 L Pulse Oximetry 95 Oxygen Delivery Method 02/01/25 09:30 02/01/25 09:30 02/01/25 10:00 Temperature Pulse Rate 72 Respiratory Rate Blood Pressure 108/59 L 115/56 L Pulse Oximetry 98 Oxygen Delivery Method 02/01/25 10:00 02/01/25 10:30 02/01/25 10:30 Temperature Pulse Rate 71 65 Respiratory Rate 22 19 Blood Pressure 118/56 L Pulse Oximetry Oxygen Delivery Method 02/01/25 11:00 02/01/25 11:00 02/01/25 11:30 Temperature Pulse Rate 66 69 Respiratory Rate 25 H 30 H Blood Pressure 117/58 L Pulse Oximetry Oxygen Delivery Method 02/01/25 11:31 02/01/25 11:31 02/01/25 12:00 Temperature Pulse Rate 70 63 Respiratory Rate 15 Blood Pressure 144/60 H Pulse Oximetry Oxygen Delivery Method 02/01/25 12:01 02/01/25 12:01 02/01/25 12:30 Temperature Pulse Rate 65 61 Respiratory Rate 16 14 Blood Pressure 109/55 L Pulse Oximetry Oxygen Delivery Method 02/01/25 12:30 02/01/25 13:00 02/01/25 13:00 Temperature Pulse Rate 58 L Respiratory Rate 12 Blood Pressure 109/55 L 111/56 L Pulse Oximetry Oxygen Delivery Method 02/01/25 13:30 02/01/25 13:30 02/01/25 14:00 Temperature Pulse Rate 59 L Respiratory Rate 14 Blood Pressure 110/56 L 110/53 L Pulse Oximetry Oxygen Delivery Method 02/01/25 14:00 02/01/25 14:30 02/01/25 14:30 Temperature Pulse Rate 57 L 60 Respiratory Rate 12 12 Blood Pressure 107/55 L Pulse Oximetry Oxygen Delivery Method MDM - Head Injury Differential Diagnosis Discussed with:: The logic behind sending the patient for transfer to [place] to facility with the desizing machine operator head end basically that he has an elevated troponin. However a repeat troponin was ordered while he was still here and it was less at 3.6. Did come down from 3.8. This was relayed to Dr. Andujar but he still wanted the patient to be transferred out to a facility with a desizing machine operator head end. The EKG did not show any acute changes but it did show sinus rhythm with frequent PVCs. Since patient was having falling episodes that could not be explained otherwise he was transferred for cardiology workup. Lab Data Attestation: I reviewed the patient's lab results. 02/01/25 08:59 02/01/25 08:59 Labs: Lab Results 02/01/25 02/01/25 02/01/25 Range/Units 08:59 10:25 10:50 WBC 5.1 (4.5-11.0) X10^3/uL RBC 3.31 L (4.5-5.9) X10^6/uL Hgb 10.9 L (13.5-17.5) g/dL Hct 31.0 L (41-53) % MCV 93.6 (80-100) fL MCH 33.0 (26-34) PG MCHC 35.3 (30-36) % RDW 14.5 (11.6-14.8) % Plt Count 211 (150-400) X10^3/uL Neut % (Auto) 75.8 H (50-75) % Lymph % (Auto) 10.9 L (25-40) % [place] % (Auto) 12.7 (3-14) % Eos % (Auto) 0.1 L (2-4) % Baso % (Auto) 0.5 (0-2) % Neut # (Auto) 3900 (7154-8990) /uL Lymph # (Auto) 600 L (6717-7613) /uL Summers # (Auto) 600 (0-900) /uL Eos # (Auto) 0 (0-450) /uL Baso # (Auto) 0 (0-100) /uL Sodium 138 (137-145) mmol/L Potassium 3.6 (3.4-5.1) mmol/L Chloride 108 H (98-107) mmol/L Carbon Dioxide 26 (22-32) mmol/L BUN 22 H (9-20) mg/dL Creatinine 0.78 (0.66-1.25) mg/dL Estimated GFR > 60 (>60) mL/min BUN/Creatinine Ratio 28.2 H (6-22) Glucose 94 (70-99) mg/dL Calcium 8.3 L (8.4-10.2) mg/dL Total Bilirubin 0.4 (0.2-1.3) mg/dL AST 38 (17-59) IU/L ALT 21 (<50) IU/L Alkaline Phosphatase 41 (38-126) U/L Troponin I 3.830 H* 3.640 H* (0.01-0.034) ng/mL Total Protein 5.6 L (6.3-8.2) g/dL Albumin 3.3 L (3.5-5.0) g/dL Globulin 2.3 (1.7-4.1) g/dL Albumin/Globulin Ratio 1.4 (1.0-2.8) Urine Color Yellow Urine Appearance Clear Urine pH 5.5 (4.5-8.0) Ur Specific [place] 1.025 (1.000-1.035) Urine Protein Trace H (Negative) Urine Glucose (UA) Negative (Negative) g/dL Urine Ketones Trace H (NEGATIVE) Urine Occult Blood 2+ H (Negative) Urine Nitrate Negative (Negative) Urine Bilirubin Negative (NEGATIVE) Urine Urobilinogen 1.0 (0.2) E.U./dL Ur Leukocyte Esterase 2+ H (NEGATIVE) Urine RBC 5-10/hpf H (0-5/HPF) Urine WBC 30-100/hpf H (0-5/HPF) Ur Squamous Epith Cells 0-1 /hpf (0-5/HPF) Ur Transition Epith Cell 0-1/hpf (0-5/HPF) Urine Bacteria None seen (None) Urine Mucus 1+ H (Negative) Urine Yeast 5-10/hpf H (None) Ur Culture Indicated? Specimen cultured Vol Urine Centrifuged Low vol <10ml (spun) A ECG Data Attestation: I personally reviewed and interpreted this ECG as follows: Discharge Plan Departure Patient Disposition: [facility] Clinical Impression: Elevated troponin, Falling episodes Prescriptions: No Action olanzapine 2.5 mg tablet 2.5 mg PO DAILY Qty: 30 0RF olanzapine 7.5 mg tablet 7.5 mg PO BEDTIME Qty: 30 0RF quetiapine 25 mg tablet 25 mg PO BID Qty: 60 0RF magnesium hydroxide [Milk of Magnesia] 400 mg/5 mL Suspension 400 mg PO PRN PRN (Reason: Constipation) acetaminophen tablet 650 mg PO PRN PRN (Reason: pain/fever) aspirin 81 mg Tablet,Delayed Release (Dr/Ec) 81 mg PO BID Qty: 112 0RF Rx Instructions: Stop date is 02/26/2025 oxycodone 5 mg Tablet 5 mg PO Q3H PRN (Reason: Pain, Moderate (4-6)) Qty: 15 0RF polyethylene glycol 3350 17 gram Powder In Packet 17 g PO DAILY Qty: 30 0RF fluoxetine [Prozac] 10 mg Capsule 10 mg PO DAILY Qty: 30 0RF finasteride 5 mg tablet 5 mg PO DAILY Qty: 90 3RF tamsulosin 0.4 mg capsule 0.8 mg PO DAILY Qty: 180 3RF Referrals: Estuardo Hinton MD [Primary Care Provider] -
[2025-02-01] MEDS: MORPHINE 2 MG/ML INJ IV (10:15)
[2025-02-01] MEDS: ONDANSETRON 4 MG/2 ML INJ IV (10:15)
[2025-02-01 10:51] LABS: Appearance Urine UA CLEAR; Bilirubin Urine UA NEGATIVE (NEGATIVE); Color Urine UA YELLOW; Glucose Urine UA NEGATIVE (Negative); Ketones Urine UA TRACE (NEGATIVE); Leukocyte Esterase Urine UA 2+ (NEGATIVE); Nitrite Urine UA NEGATIVE (Negative); Occult Blood Urine UA 2+ (Negative); Protein Urine UA TRACE (Negative); Specific Gravity Urine UA 1.025 (1.000-1.035); pH Urine UA 5.5 (4.5-8.0)
[2025-02-01 11:09] LABS: RBC Urine 5-10/HPF (0-5/HPF); Urine Volume Low Vol <10mL (spun); WBC Urine 30-100/HPF (0-5/HPF)
[2025-02-01 11:10] LABS: Bacteria Urine None Seen; Culture Indicated Urine Specimen Cultured; Mucus Urine 1+ (Negative); Squamous Epithelial Cell Urine 0-1 /HPF (0-5/HPF); Transitional Epi Cells Urine 0-1/HPF (0-5/HPF)
== END 2025-02-01 15:15 | disposition short-term general hospital (02) ==
PROVIDERS: Emergency Provider Emergency Medicine; Family Provider Family Medicine; PCP Internal Medicine
DX: R79.89 Other specified abnormal findings of blood chemistry (principal); S09.90XA Unspecified injury of head, initial encounter; R29.6 Repeated falls; M25.551 Pain in right hip; W18.30XA Fall on same level, unspecified, initial encounter
CPT/HCPCS: 36415; 70450; 72125; 73502; 80053; 81001; 84484; 85025; 87077; 87086; 93005; 96374; 96375; 99283; 99284; J2270; J2405

== ENCOUNTER 2025-02-15 20:36 | Emergency (ER) | payer MEDICARE, SELFPAY ==
[2025-01-15 04:22] VITALS: BMI 21.4
[2025-02-15 20:41] VITALS: BP 115/56; PULSE 85; RESP 16; TEMP 36.8; O2SAT 97; BMI 19.6
--- NOTE | 2025-02-15 21:47 | PC.NURSE ---
Durant cath in place, not secured to the leg, urine is pink. I tape on device appled to right leg to secure the cath and prevent tugging.
--- NOTE | 2025-02-16 00:38 | ED.MALEGU ---
HPI - Male Genitourinary General Chief complaint: Urogenital-Male Stated complaint: Blood in Urine Time Seen by Provider: 02/16/25 00:38 Source: patient Mode of arrival: Wheelchair History of Present Illness HPI Narrative: 84-year-old male with a past medical history of dementia hypothyroidism indwelling Durant catheter presenting for blood in the Durant catheter, states it was just discharged from [facility] proximally 2 days ago after a mechanical trip and fall, patient states he is on Eliquis, last time they Durant catheter was changed was on the , does live at [facility], patient is at baseline history of dementia therefore additional ROS HPI is limited however patient's son is at bedside states he is at baseline, he states that he was started on Eliquis approximately 1 week ago due to diagnosis of PE. No trauma no falls Related Data Home Medications Medication Instructions Recorded Confirmed acetaminophen 650 mg PO PRN PRN pain/fever 01/15/25 01/15/25 magnesium hydroxide 400 mg/5 mL 400 mg PO PRN PRN Constipation 01/15/25 01/15/25 oral suspension (Milk of Magnesia) Previous Rx's Medication Instructions Recorded finasteride 5 mg tablet 5 mg PO DAILY #90 tabs 10/23/24 tamsulosin 0.4 mg capsule 0.8 mg (2 x 0.4 mg) PO DAILY #180 10/23/24 caps aspirin 81 mg tablet,delayed 81 mg PO BID #112 tabs 01/17/25 release oxycodone 5 mg tablet 5 mg PO Q3H PRN Pain, Moderate 01/17/25 (4-6) #15 tabs fluoxetine 10 mg capsule (Prozac) 10 mg PO DAILY #30 caps 01/24/25 polyethylene glycol 3350 17 gram 17 g PO DAILY Constipation #30 ea 01/24/25 oral powder packet olanzapine 2.5 mg tablet 2.5 mg PO DAILY #30 tabs 01/25/25 olanzapine 7.5 mg tablet 7.5 mg PO BEDTIME #30 tabs 01/25/25 quetiapine 25 mg tablet 25 mg PO BID #60 tabs 01/25/25 Allergies Allergy/AdvReac Type Severity Reaction Status Date / Time No Known Drug Allergies Allergy Verified 02/01/25 08:24 Review of Systems Review of Systems Narrative: General: Denies fever, chills, weight loss HEENT: Denies headache, eye drainage, eye irritation, head trauma, sore throat, voice change Cardiovascular: Denies any chest pain, palpitations, tachycardia Respiratory: Denies any shortness of breath, cough, wheeze, stridor GI/: Positive hematuria to Durant catheter Denies any abdominal pain, nausea, vomiting, diarrhea, bright red blood per rectum, melanotic stools, urinary frequency, urinary retention, dysuria, MSK: Denies any joint pain, muscle pains, swelling Skin: Denies any rashes, lesions, discoloration Neuro: Denies any headache, lightheadedness, dizziness, fainting, weakness Psych: Denies SI/HI Patient History Medical History Urinary retention Durant catheter in place Obstructive uropathy Complex renal cyst Dementia Acquired hypothyroidism Surgical History Anesthesia History of hernia repair Family History Father Cancer Mother Bronchitis Social History household members: none Smoking Status: Never smoker alcohol intake: never caffeine: Yes Smoking Status: Never smoker Exam Narrative Exam Narrative: General: Cooperative, well-developed, not in acute distress HEENT: Normocephalic, atraumatic, PERRLA, normal sclera, eyelids normal Neck: Active full range of motion, atraumatic Chest: Normal to inspection, negative crepitus, no overlying erythema ecchymosis Respiratory: Normal respiratory effort, not in acute respiratory distress, clear to auscultation bilaterally negative cough, wheeze, tachypnea, rhonchi, rales Cardiology: Regular rate rhythm negative gallop, murmur, rubs GI/: No tenderness to palpation, soft, non rigid, normal to inspection, Durant catheter in place, bright red blood noted to the Durant catheter MSK: Full active range of motion in all 4 extremities, atraumatic, no tenderness to palpation of any bony prominences Skin: No rashes or lesions noted Neuro: Patient history of dementia, intermittently alert to self this is his baseline Psych: Cooperative, negative suicidal or homicidal ideations Initial Vital Signs Initial Vital Signs: Vital Signs Temperature 98.3 F 05/15/25 20:41 Pulse Rate 85 02/15/25 20:41 Respiratory Rate 16 02/15/25 20:41 Blood Pressure 115/56 L 02/15/25 20:41 Pulse Oximetry 97 02/15/25 20:41 Oxygen Delivery Method Room Air 02/15/25 20:41 Course Orders Ordered: Discontinued Medications Lidocaine HCl (Lidocaine 2% (Glydo) 6 Ml Gel) 6 ml TOP NOW ONE Stop: 02/16/25 01:48 Last Admin: 02/16/25 02:17 Dose: 6 ml Documented By: RUBIN Phenazopyridine HCl (Phenazopyridine 100 Mg Tablet) 200 mg PO NOW ONE Stop: 02/16/25 01:13 Last Admin: 02/16/25 01:25 Dose: 200 mg Documented By: ANDREW Vital Signs Vital signs: Vital Signs - 8 hr 02/15/25 20:41 Temperature 98.3 F Pulse Rate 85 Respiratory Rate 16 Blood Pressure 115/56 L Pulse Oximetry 97 Oxygen Delivery Method Room Air MDM - Male Genitourinary Differential Diagnosis Differential diagnosis: Likely other (Gross hematuria, Durant catheter malfunction) MDM Narrative Medical decision making narrative: 84-year-old male with a past medical history of dementia hypothyroidism indwelling Durant catheter presenting for blood in the Durant catheter, states it was just discharged from [facility] proximally 2 days ago after a mechanical trip and fall, patient states he is on Eliquis, last time they Durant catheter was changed was on the , does live at [facility], patient is at baseline history of dementia therefore additional ROS HPI is limited however patient's son is at bedside states he is at baseline, he states that he was started on Eliquis approximately 1 week ago due to diagnosis of PE. Upon initial examination of Durant catheter, there does appear to be dried blood within the tubing, I personally attempted to flush the Durant catheter will without success therefore changed the Durant catheter to a [address], however after exchange patient had large amount of clot and gross blood noted, therefore decision was made to exchange to a [address], patient was hooked up to bladder irrigation, patient was watched after and urine remained only slightly pink tinged, patient will be discharged home with 3 way Durant catheter and instructed to follow up with his urologist, Dr. Mohamud, in an outpatient setting to discuss further plans in regards to his suprapubic catheter placement and or his current 3 way Durant catheter placement. Discharge Plan Departure Patient Disposition: Home Clinical Impression: Hematuria Qualifiers: Hematuria type: gross Qualified Code(s): R31.0 - Gross hematuria Obstructed Durant catheter Qualifiers: Encounter type: initial encounter Qualified Code(s): T83.091A - Other mechanical complication of indwelling urethral catheter, initial encounter Instructions: How to Care for Your Durant Catheter -- Male Activity Restrictions/Additional Instructions: Please follow up with your urologist Please read the discharge instructions sheet carefully and bring all papers to all doctor follow-up visits, as it may contain information that your doctor may want to see. Disease processes change and evolve, if your symptoms worsen or if you develop any new symptoms that are concerning to you please return for evaluation. Your evaluation today does not show any evidence of any life-threatening/serious illnesses requiring admission to the hospital or surgery. Please follow-up with your doctor for re-evaluation in approximately 1 day. Seek immediate medical attention for any worrisome symptoms. *If you do not have a primary care provider please contact the [facility] Resource line at [phone]. They will ask some questions about your medical history and help get you set up with a doctor in the community. Prescriptions: No Action olanzapine 2.5 mg tablet 2.5 mg PO DAILY Qty: 30 0RF olanzapine 7.5 mg tablet 7.5 mg PO BEDTIME Qty: 30 0RF quetiapine 25 mg tablet 25 mg PO BID Qty: 60 0RF magnesium hydroxide [Milk of Magnesia] 400 mg/5 mL Suspension 400 mg PO PRN PRN (Reason: Constipation) acetaminophen tablet 650 mg PO PRN PRN (Reason: pain/fever) aspirin 81 mg Tablet,Delayed Release (Dr/Ec) 81 mg PO BID Qty: 112 0RF Rx Instructions: Stop date is 02/26/2025 oxycodone 5 mg Tablet 5 mg PO Q3H PRN (Reason: Pain, Moderate (4-6)) Qty: 15 0RF polyethylene glycol 3350 17 gram Powder In Packet 17 g PO DAILY Qty: 30 0RF fluoxetine [Prozac] 10 mg Capsule 10 mg PO DAILY Qty: 30 0RF finasteride 5 mg tablet 5 mg PO DAILY Qty: 90 3RF tamsulosin 0.4 mg capsule 0.8 mg PO DAILY Qty: 180 3RF Referrals: Estuardo Hinton MD [Primary Care Provider] - Stand Alone Forms: Patient Portal/API/Survey
[2025-02-16] MEDS: PHENAZOPYRIDINE 100 MG TABLET 200 MG PO (01:25)
--- NOTE | 2025-02-16 01:41 | PC.NURSE ---
Pt with blood in cath, unable to manually irrigated the cath, large clot expelled when cath removed, new cath placed, 300ml of dark red urine drained.
[2025-02-16] MEDS: LIDOCAINE 2% (GLYDO) 6 ML GEL TOP (02:17)
[2025-02-16 03:14] VITALS: BP 116/57; PULSE 71; O2SAT 95
== END 2025-02-16 03:10 | disposition home or self-care (01) ==
PROVIDERS: Emergency Provider Student in an Organized Health Care Education/Training Program; Family Provider Family Medicine; PCP Internal Medicine
DX: R31.0 Gross hematuria (principal); T83.091A Other mechanical complication of indwelling urethral catheter, initial encounter
CPT/HCPCS: 51702; 99283

== ENCOUNTER 2025-02-17 02:14 | Emergency (ER) | payer MEDICARE, SELFPAY ==
[2025-01-15 04:22] VITALS: BMI 21.4
[2025-02-17] VITALS (25 sets, daily range): BP systolic 109–138; BP diastolic 53–94; PULSE 76–100; RESP 7–23; TEMP 37.5; O2SAT 87–99
--- NOTE | 2025-02-17 02:22 | DI.RAD.S_ITS ---
PROCEDURE: XR PELVIS 1-2V INDICATIONS: fall trauma TECHNIQUE: 1 view(s) of the pelvis acquired. COMPARISON: [facility], CR, XR PELVIS 1-2V, 01/15/2025, 20:01. [facility], CR, XR HIP W PEL IF DONE RT 2V, 02/01/2025, 8:53. [facility], CR, XR PELVIS 1-2V, 02/17/2025, 3:04. 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 No associated fracture is seen. Soft tissues: Visualized bowel gas pattern is normal. No suspicious soft tissue calcifications. IMPRESSION: Right prosthetic hip dislocation. Note: No significant discrepancy from the preliminary report. Dictated by: Warner Moran M.D. on 02/17/2025 at 8:25 Approved by: Warner Moran M.D. on 02/17/2025 at 8:25
--- NOTE | 2025-02-17 02:22 | ED_ITS ---
HPI - Fall General Chief Complaint: Fall Stated Complaint: Fall History of Present Illness HPI Narrative: 84-year-old gentleman history of right hip replacement lives at [facility] care facility brought in via EMS for fall with complaints of hip pain given ketamine and fentanyl prior to arrival here. Patient is a poor historian given that he is pleasantly demented and unable to give me further details of the fall. As such unable to complete 14 point review of system. Related Data Home Medications Medication Instructions Recorded Confirmed acetaminophen 650 mg PO PRN PRN pain/fever 01/15/25 01/15/25 magnesium hydroxide 400 mg/5 mL 400 mg PO PRN PRN Constipation 01/15/25 01/15/25 oral suspension (Milk of Magnesia) Previous Rx's Medication Instructions Recorded finasteride 5 mg tablet 5 mg PO DAILY #90 tabs 10/23/24 tamsulosin 0.4 mg capsule 0.8 mg (2 x 0.4 mg) PO DAILY #180 10/23/24 caps aspirin 81 mg tablet,delayed 81 mg PO BID #112 tabs 01/17/25 release oxycodone 5 mg tablet 5 mg PO Q3H PRN Pain, Moderate 01/17/25 (4-6) #15 tabs fluoxetine 10 mg capsule (Prozac) 10 mg PO DAILY #30 caps 01/24/25 polyethylene glycol 3350 17 gram 17 g PO DAILY Constipation #30 ea 01/24/25 oral powder packet olanzapine 2.5 mg tablet 2.5 mg PO DAILY #30 tabs 01/25/25 olanzapine 7.5 mg tablet 7.5 mg PO BEDTIME #30 tabs 01/25/25 quetiapine 25 mg tablet 25 mg PO BID #60 tabs 01/25/25 hydrocodone 5 mg-acetaminophen 325 1 tab PO Q4-6H PRN pain #20 tabs 02/17/25 mg tablet Allergies Allergy/AdvReac Type Severity Reaction Status Date / Time No Known Drug Allergies Allergy Verified 02/01/25 08:24 Review of Systems Review of Systems ROS Unobtainable: Unobtainable due to mental status/LOC Patient History Medical History Urinary retention Durant catheter in place Obstructive uropathy Complex renal cyst Dementia Acquired hypothyroidism Surgical History Anesthesia History of hernia repair Family History Father Cancer Mother Bronchitis Social History household members: none alcohol intake: never caffeine: Yes Exam Narrative Exam Narrative: GENERAL: [84] year old patient appears stated age. Well-developed patient, in mild distress. HEAD: Atraumatic. Normocephalic. EYES: Pupils equal round and reactive. Extraocular motions intact. No scleral icterus. No injection or drainage. NECK: Trachea midline. Non tender CARDIOVASCULAR: Regular rate and rhythm without murmurs, gallops, or rubs. RESPIRATORY: Clear to auscultation. Breath sounds equal bilaterally. No wheezes, rales, or rhonchi. GASTROINTESTINAL: Abdomen soft, non-tender, nondistended. EXTREMITIES: No edema R leg short and internally rotated BACK: Nontender without deformity or crepitance. No flank tenderness. NEURO: AOx1 SKIN: No rash or erythema of visible areas Initial Vital Signs Initial Vital Signs: Vital Signs Pulse Rate 100 H 02/17/25 02:19 Respiratory Rate 21 02/17/25 02:19 Pulse Oximetry 97 02/17/25 02:19 Procedures Orthopedic Joint Reduction R hip dislocation: Time of procedure: 03:21 Time Out Performed: Yes Side: right Joint Reduction Location: hip Analgesia: procedural sedation (Propofol) Technique used: traction/counter-traction Post-reduction neuro exam: intact Post-reduction vascular: intact Post Reduction X-Ray Obtained: Yes Post Reduction X-Ray Results: reduced Splint Applied: Yes Patient Tolerated Procedure: Well Course Orders Ordered: ED Orders 02/17/25 02:22 XR pelvis 1-2V Stat 02/17/25 03:09 XR pelvis 1-2V Stat Discontinued Medications Hydromorphone HCl (Hydromorphone 1 Mg Inj) 2 mg IV NOW ONE Stop: 02/17/25 02:38 Last Admin: 02/17/25 02:43 Dose: 2 mg Documented By: BALJEET Propofol (Propofol 200 Mg/20 Ml Vial) 65 mg 1 mg/kg (65 mg) IV NOW ONE Stop: 02/17/25 03:03 Last Admin: 02/17/25 03:28 Dose: Not Given Documented By: BALJEET Propofol (Propofol 200 Mg/20 Ml Vial) 100 mg IV NOW ONE Stop: 02/17/25 03:16 Last Admin: 02/17/25 03:29 Dose: 100 mg Documented By: BALJEET Vital Signs Vital signs: Vital Signs - 8 hr 02/17/25 02:19 02/17/25 02:21 02/17/25 02:21 Temperature 99.5 F Pulse Rate 100 H 81 87 Respiratory Rate 21 20 20 Blood Pressure 121/79 Pulse Oximetry 97 97 97 Oxygen Delivery Method Room Air Oxygen Flow Rate 02/17/25 02:23 02/17/25 02:23 02/17/25 02:30 Temperature Pulse Rate 86 81 Respiratory Rate 22 23 Blood Pressure 121/79 Pulse Oximetry 98 98 Oxygen Delivery Method Oxygen Flow Rate 02/17/25 02:30 02/17/25 03:00 02/17/25 03:10 Temperature Pulse Rate 87 87 Respiratory Rate 12 8 L Blood Pressure 118/94 H Pulse Oximetry 94 87 L Oxygen Delivery Method Oxygen Flow Rate 02/17/25 03:10 02/17/25 03:11 02/17/25 03:11 Temperature Pulse Rate 80 Respiratory Rate 7 L Blood Pressure 125/59 L 109/53 L Pulse Oximetry 89 L Oxygen Delivery Method Oxygen Flow Rate 02/17/25 03:15 02/17/25 03:15 02/17/25 03:20 Temperature Pulse Rate 76 Respiratory Rate 19 Blood Pressure 110/53 L 124/56 L Pulse Oximetry 98 Oxygen Delivery Method Oxygen Flow Rate 02/17/25 03:20 02/17/25 03:25 02/17/25 03:25 Temperature Pulse Rate 83 88 Respiratory Rate 14 15 Blood Pressure 122/54 L Pulse Oximetry 97 96 Oxygen Delivery Method Oxygen Flow Rate 02/17/25 03:30 02/17/25 03:30 02/17/25 03:35 Temperature Pulse Rate 87 89 Respiratory Rate 15 15 Blood Pressure 122/54 L Pulse Oximetry 97 97 Oxygen Delivery Method Non -Rebreather Oxygen Flow Rate 8 02/17/25 03:35 02/17/25 03:45 02/17/25 03:45 Temperature Pulse Rate 96 H Respiratory Rate 16 Blood Pressure 120/57 L 133/59 L Pulse Oximetry 96 Oxygen Delivery Method Oxygen Flow Rate 02/17/25 04:00 02/17/25 04:00 Temperature Pulse Rate 97 H Respiratory Rate 20 Blood Pressure 126/61 Pulse Oximetry 96 Oxygen Delivery Method Oxygen Flow Rate MDM - Fall MDM Narrative Medical decision making narrative: Vital signs, nurse triage note, medication list, previous ER visits, and x-rays and all imaging modalities reviewed. Time-out performed with patient placed on cardiac cath rn with vital signs blood pressure heart rate oxygen saturation and tidal CO2 all monitored. procedural sedation using propofol administered and using traction counter traction technique patient right hip was successfully reduced confirmed with postreduction x-ray. Knee immobilizer placed and patient will follow up with orthopedic surgeon Dr.Stachia Talbot with recent surgery from 01/15/25 as outpatient. Discharge Plan Departure Patient Disposition: Home Clinical Impression: Dislocation, hip closed Qualifiers: Encounter type: initial encounter Laterality: right Qualified Code(s): S73.004A - Unspecified dislocation of right hip, initial encounter Instructions: DI for Hip Dislocation -- Adult Activity Restrictions/Additional Instructions: Return with new or worsening symptoms. Follow up with Dr. Radha Lambert MD as outpatient call office on Wednesday for appointment. Prescriptions: New hydrocodone-acetaminophen 5-325 mg tablet 1 tab PO Q4-6H PRN (Reason: pain) Qty: 20 0RF No Action olanzapine 2.5 mg tablet 2.5 mg PO DAILY Qty: 30 0RF olanzapine 7.5 mg tablet 7.5 mg PO BEDTIME Qty: 30 0RF quetiapine 25 mg tablet 25 mg PO BID Qty: 60 0RF magnesium hydroxide [Milk of Magnesia] 400 mg/5 mL Suspension 400 mg PO PRN PRN (Reason: Constipation) acetaminophen tablet 650 mg PO PRN PRN (Reason: pain/fever) aspirin 81 mg Tablet,Delayed Release (Dr/Ec) 81 mg PO BID Qty: 112 0RF Rx Instructions: Stop date is 02/26/2025 oxycodone 5 mg Tablet 5 mg PO Q3H PRN (Reason: Pain, Moderate (4-6)) Qty: 15 0RF polyethylene glycol 3350 17 gram Powder In Packet 17 g PO DAILY Qty: 30 0RF fluoxetine [Prozac] 10 mg Capsule 10 mg PO DAILY Qty: 30 0RF finasteride 5 mg tablet 5 mg PO DAILY Qty: 90 3RF tamsulosin 0.4 mg capsule 0.8 mg PO DAILY Qty: 180 3RF Referrals: Estuardo Hinton MD [Primary Care Provider] - Radha Talbot MD [Physician] - Stand Alone Forms: Patient Portal/API/Survey
[2025-02-17] MEDS: HYDROMORPHONE 1 MG INJ 2 MG IV (02:43)
--- NOTE | 2025-02-17 03:09 | DI.RAD.S_ITS ---
PROCEDURE: XR PELVIS 1-2V INDICATIONS: post reduction TECHNIQUE: 1 view(s) of the pelvis acquired. COMPARISON: [facility], CR, XR PELVIS 1-2V, 02/17/2025, 2:17. [facility], CR, XR HIP W PEL IF DONE RT 2V, 02/01/2025, 8:53. FINDINGS: Bones: The right prosthetic hip has now been relocated. No associated fracture is identified. Soft tissues: Visualized bowel gas pattern is normal. No suspicious soft tissue calcifications. IMPRESSION: Right hip relocation. Note: No significant discrepancy from the preliminary report. Dictated by: Warner Moran M.D. on 02/17/2025 at 8:26 Approved by: Warner Moran M.D. on 02/17/2025 at 8:26
[2025-02-17] MEDS: propofoL 200 MG/20 ML VIAL 100 MG IV (03:29)
--- NOTE | 2025-02-17 04:30 | PC.NURSE ---
spoke with pt's son, he stated that pt usually sleeps very soundly after receiving pain medication and probably will not wake up until about 0900, son states he is going home, informed son we would call if plans changed but the plan was to send the pt back to [facility] after he woke up, pt's son agrees with the plan of care
--- NOTE | 2025-02-17 05:00 | PC.NURSE ---
discussed pt's status with Dr Salazar and it was agreed that pt can be d/c from post procedural sedation but will continue to watch pt in the ED until he wakes and pt will be dc back to [facility]
--- NOTE | 2025-02-17 06:35 | PC.NURSE ---
attempted to call [facility] with no answer
--- NOTE | 2025-02-17 09:33 | PC.NURSE ---
Butch Joe from [facility] called at 0915 to go over discharge summary for patient. [employer] Tech asked which pharmacy patients prescription was sent and asked for ED doc note and Imaging reports be faxed to [facility] at [phone]. This SENIOR TELECOMMUNICATIONS ENGINEER faxed requested records for patient to number listed above at [phone].
== END 2025-02-17 07:06 | disposition home or self-care (01) ==
PROVIDERS: Emergency Provider Family Medicine; Family Provider Family Medicine; PCP Internal Medicine
DX: S73.004A Unspecified dislocation of right hip, initial encounter (principal); W19.XXXA Unspecified fall, initial encounter
CPT/HCPCS: 27265; 72170; 96374; 99152; 99284; J1171; J2704

== ENCOUNTER 2025-02-17 21:25 | Inpatient (IN) | payer MEDICARE, SELFPAY ==
[2025-01-15 04:22] VITALS: BMI 21.4
[2025-02-17] VITALS (9 sets, daily range): BP systolic 103–131; BP diastolic 44–58; PULSE 41–87; RESP 10–17; TEMP 37.3; O2SAT 84–100; BMI 19.9
--- NOTE | 2025-02-17 21:44 | ED_ITS ---
HPI - SOB/Dyspnea General Chief Complaint: Shortness of Breath/Dyspnea Stated Complaint: low bp Time Seen by Provider: 02/17/25 21:28 Source: EMS Mode of arrival: EMS Limitations: altered mental status and physical limitation History of Present Illness HPI Narrative: 84-year-old gentleman pleasantly demented brought in via EMS from [facility] for low BP 82/57 and low O2 in the 80s and temp 99.9 after pain medicine was given earlier today as patient was seen here in the ER earlier yesterday evening status post hip dislocation reduction. He is currently anticoagulated on eliquis due to PE and does have a chronic indwelling garcia catheter. When patient arrived here 02 to was 84% now on 4L Oximask at 100% 02 sat. Unable to obtain 14 point review of system due to dementia baseline. Nurse triage note and EMS report have both been reviewed. Related Data Home Medications Medication Instructions Recorded Confirmed acetaminophen 650 mg PO PRN PRN pain/fever 01/15/25 02/17/25 magnesium hydroxide 400 mg/5 mL 400 mg PO PRN PRN Constipation 01/15/25 02/17/25 oral suspension (Milk of Magnesia) Previous Rx's Medication Instructions Recorded finasteride 5 mg tablet 5 mg PO DAILY #90 tabs 10/23/24 tamsulosin 0.4 mg capsule 0.8 mg (2 x 0.4 mg) PO DAILY #180 10/23/24 caps aspirin 81 mg tablet,delayed 81 mg PO BID #112 tabs 01/17/25 release oxycodone 5 mg tablet 5 mg PO Q3H PRN Pain, Moderate 01/17/25 (4-6) #15 tabs fluoxetine 10 mg capsule (Prozac) 10 mg PO DAILY #30 caps 01/24/25 polyethylene glycol 3350 17 gram 17 g PO DAILY Constipation #30 ea 01/24/25 oral powder packet olanzapine 2.5 mg tablet 2.5 mg PO DAILY #30 tabs 01/25/25 olanzapine 7.5 mg tablet 7.5 mg PO BEDTIME #30 tabs 01/25/25 quetiapine 25 mg tablet 25 mg PO BID #60 tabs 01/25/25 hydrocodone 5 mg-acetaminophen 325 1 tab PO Q4-6H PRN pain #20 tabs 02/17/25 mg tablet Allergies Allergy/AdvReac Type Severity Reaction Status Date / Time No Known Drug Allergies Allergy Verified 02/17/25 21:31 Review of Systems Review of Systems ROS Unobtainable: Unobtainable due to mental status/LOC Patient History Medical History Urinary retention Garcia catheter in place Obstructive uropathy Complex renal cyst Dementia Acquired hypothyroidism Surgical History Anesthesia History of hernia repair Family History Father Cancer Mother Bronchitis Social History household members: none Smoking Status: Never smoker alcohol intake: never caffeine: Yes Smoking Status: Never smoker Exam Narrative Exam Narrative: GENERAL: [84] year old patient appears stated age. Well-developed patient, in mild distress. HEAD: Atraumatic. Normocephalic. EYES: Pupils equal round and reactive. Extraocular motions intact. No scleral icterus. No injection or drainage. ENT: Nose without bleeding, purulent drainage. Throat without erythema, tonsillar hypertrophy or exudate. Airway patent. NECK: Trachea midline. Non tender CARDIOVASCULAR: Regular rate and rhythm without murmurs, gallops, or rubs. RESPIRATORY: Clear to auscultation. Breath sounds equal bilaterally. No wheezes, rales, or rhonchi. GASTROINTESTINAL: Abdomen soft, non-tender, nondistended. EXTREMITIES: No edema BACK: Nontender without deformity or crepitance. No flank tenderness. NEURO: AOx1. GCS 13 grossly moves all extremities. His eyes are closed but open eyes spontaneously. He is unable to answer questions appropriately. SKIN: No rash or erythema of visible areas Initial Vital Signs Initial Vital Signs: Vital Signs Pulse Rate 41 L 02/17/25 21:30 Pulse Oximetry 91 02/17/25 21:30 Course Orders Ordered: ED Orders 02/17/25 21:27 Complete Blood Count AUTO DIFF Stat Comprehensive Metabolic Panel Stat Lactate (Lactic Acid) Stat Lipase Stat Magnesium Stat NT-proBNP (BNP-Adult 18+) Stat PTT Partial Thromboplastin Rene Stat Procalcitonin Stat Prothrombin Time INR Stat Troponin & CK Cardiac Panel Stat 02/17/25 21:45 XR chest 1V Stat EKG-12 Lead Stat RT Consult Eval and Treat NOW 02/18/25 00:12 Troponin I Stat 02/18/25 01:24 Venous Blood Gas STAT 02/18/25 01:34 Venous Blood Gas Routine Discontinued Medications Aspirin (Aspirin 81 Mg Chew Tab) 324 mg PO NOW ONE Stop: 02/17/25 21:46 Last Admin: 02/17/25 22:26 Dose: Not Given Documented By: Morphine Sulfate (Morphine 2 Mg/Ml Inj) 2 mg IV NOW ONE Stop: 02/17/25 22:48 Last Admin: 02/17/25 22:59 Dose: 2 mg Documented By: Morphine Sulfate (Morphine 2 Mg/Ml Inj) 2 mg IV NOW ONE Stop: 02/18/25 01:37 Last Admin: 02/18/25 01:45 Dose: 2 mg Documented By: Vital Signs Vital signs: Vital Signs - 8 hr 02/17/25 21:30 02/17/25 21:32 02/17/25 21:32 Temperature Pulse Rate 41 L 87 Respiratory Rate 17 Blood Pressure 117/58 L Pulse Oximetry 91 90 L Oxygen Delivery Method Oxygen Flow Rate 02/17/25 21:33 02/17/25 22:00 02/17/25 22:01 Temperature 99.1 F Pulse Rate 84 78 Respiratory Rate 17 11 L Blood Pressure 117/58 L 104/49 L Pulse Oximetry 84 L 96 Oxygen Delivery Method Room Air Oxygen Flow Rate 02/17/25 22:01 02/17/25 22:30 02/17/25 22:30 Temperature Pulse Rate 78 78 Respiratory Rate 10 L 16 Blood Pressure 131/58 L Pulse Oximetry 96 99 Oxygen Delivery Method Room Air Oxygen Flow Rate 02/17/25 23:00 02/17/25 23:01 02/17/25 23:01 Temperature Pulse Rate 71 73 Respiratory Rate 11 L 17 Blood Pressure 111/44 L Pulse Oximetry 100 100 Oxygen Delivery Method Oximask Oximask Oxygen Flow Rate 4 4 02/17/25 23:30 02/17/25 23:30 02/18/25 00:00 Temperature Pulse Rate 73 76 Respiratory Rate 11 L 12 Blood Pressure 103/49 L Pulse Oximetry 100 100 Oxygen Delivery Method Oxygen Flow Rate 02/18/25 00:01 02/18/25 00:01 02/18/25 00:30 Temperature Pulse Rate 78 69 Respiratory Rate 20 11 L Blood Pressure 114/55 L Pulse Oximetry 100 100 Oxygen Delivery Method Room Air Oxygen Flow Rate 02/18/25 00:31 02/18/25 00:31 02/18/25 01:00 Temperature Pulse Rate 72 Respiratory Rate 11 L Blood Pressure 105/49 L 109/51 L Pulse Oximetry 100 Oxygen Delivery Method Oxygen Flow Rate 02/18/25 01:00 Temperature Pulse Rate 72 Respiratory Rate 11 L Blood Pressure Pulse Oximetry 100 Oxygen Delivery Method Oximask Oxygen Flow Rate 4 MDM - SOB/Dyspnea Lab Data 02/17/25 21:27 02/17/25 21:27 Labs: Lab Results 02/17/25 02/18/25 02/18/25 Range/Units 21:27 00:12 01:34 WBC 6.9 (4.5-11.0) X10^3/uL RBC 2.69 L (4.5-5.9) X10^6/uL Hgb 8.7 L (13.5-17.5) g/dL Hct 25.4 L (41-53) % MCV 94.7 (80-100) fL MCH 32.5 (26-34) PG MCHC 34.3 (30-36) % RDW 14.5 (11.6-14.8) % Plt Count 186 (150-400) X10^3/uL Neut % (Auto) 68.4 (50-75) % Lymph % (Auto) 18.7 L (25-40) % Parmer % (Auto) 11.6 (3-14) % Eos % (Auto) 0.7 L (2-4) % Baso % (Auto) 0.6 (0-2) % Neut # (Auto) 4700 (0648-2512) /uL Lymph # (Auto) 1300 (5926-4910) /uL Parmer # (Auto) 800 (0-900) /uL Eos # (Auto) 0 (0-450) /uL Baso # (Auto) 0 (0-100) /uL PT 15.7 H (9.4-12.5) SECONDS INR 1.4 H (0.9-1.3) APTT 31 (25.1-36.5) SECONDS VBG pH 7.42 (7.33-7.43) VBG pCO2 46.4 (45-50) mmHg VBG pO2 24 L (35-45) mmHg VBG HCO3 30 H (24-28) mmol/L VBG Total CO2 30 H (24-29) mmol/L VBG O2 Saturation 42 L (70-75) % VBG Base Excess 5.3 H (0-4) mmol/L FiO2 % 30.0 % % Sodium 139 (137-145) mmol/L Potassium 3.9 (3.4-5.1) mmol/L Chloride 107 (98-107) mmol/L Carbon Dioxide 29 (22-32) mmol/L BUN 21 H (9-20) mg/dL Creatinine 0.62 L (0.66-1.25) mg/dL Estimated GFR > 60 (>60) mL/min BUN/Creatinine Ratio 33.9 H (6-22) Glucose 126 H (70-99) mg/dL Lactate 1.5 (0.7-2.1) mmol/L Calcium 8.2 L (8.4-10.2) mg/dL Magnesium 2.1 (1.6-2.3) mg/dL Total Bilirubin 0.6 (0.2-1.3) mg/dL AST 28 (17-59) IU/L ALT 17 (<50) IU/L Alkaline Phosphatase 50 (38-126) U/L Total Creatine Kinase 229 H (55-170) U/L Troponin I < 0.012 < 0.012 (0.01-0.034) ng/mL NT-Pro-B Natriuret Pep 1000 H (<450) pg/mL Total Protein 5.5 L (6.3-8.2) g/dL Albumin 3.1 L (3.5-5.0) g/dL Globulin 2.4 (1.7-4.1) g/dL Albumin/Globulin Ratio 1.3 (1.0-2.8) Lipase 32 (23-300) U/L Procalcitonin 0.075 (<0.5) ng/mL Imaging Data Chest x-ray: Radiologist's Impression: [address] [address] XRay Report Signed Patient: Carmelo Mejias MR#: [id number] : 1940 Acct:[id number] Age/Sex: 84 / M Date of Service: 02/17/25 Loc: ED Accession Number: [id number] Procedure: XR chest 1V Ordering Provider: Estuardo Salazar D.O. PROCEDURE: XR CHEST 1V INDICATIONS: Chest Pain TECHNIQUE: One view of the chest was acquired. COMPARISON: [facility], CR, XR CHEST 1V, 01/18/2025, 7:17. FINDINGS: Surgical changes and devices: None. Lungs and pleura: Lungs are clear. No pleural effusions or pneumothorax. Mediastinum: Mediastinal contours appear normal. Heart size is normal. Bones and chest wall: No suspicious bony lesions. Overlying soft tissues appear unremarkable. IMPRESSION: No acute cardiopulmonary abnormality is seen. MDM Narrative Medical decision making narrative: All lab work, vital signs, nurse triage note, medication list, all reviewed. Pt on arrival had 02 sat 83-84% RA and was placed on oximeter 4L 02 initially as he would put the Nasal cannula in his mouth which has since come up to 100% on 2L oximeter titrated down from 4L initially on arrival. Patient was also given LR 1L bolus x 1 in light low BP and now is currently 117/54. Patient is a light weight and is narcotic naive and given his dementia poor p.o. intake I suspect this is multifactorial but also the patient is a mouth breather leading to his hypotension and hypoxemia. Case discussed with Dr. Bowie who has graciously accepted patient for inpatient admission and to add CBC CMP and a diet order to his admission. Discharge Plan Departure Patient Disposition: Admitted as Observation Clinical Impression: Hypoxemia, Acute dehydration Prescriptions: No Action olanzapine 2.5 mg tablet 2.5 mg PO DAILY Qty: 30 0RF olanzapine 7.5 mg tablet 7.5 mg PO BEDTIME Qty: 30 0RF quetiapine 25 mg tablet 25 mg PO BID Qty: 60 0RF magnesium hydroxide [Milk of Magnesia] 400 mg/5 mL Suspension 400 mg PO PRN PRN (Reason: Constipation) acetaminophen tablet 650 mg PO PRN PRN (Reason: pain/fever) aspirin 81 mg Tablet,Delayed Release (Dr/Ec) 81 mg PO BID Qty: 112 0RF Rx Instructions: Stop date is 02/26/2025 oxycodone 5 mg Tablet 5 mg PO Q3H PRN (Reason: Pain, Moderate (4-6)) Qty: 15 0RF polyethylene glycol 3350 17 gram Powder In Packet 17 g PO DAILY Qty: 30 0RF fluoxetine [Prozac] 10 mg Capsule 10 mg PO DAILY Qty: 30 0RF hydrocodone-acetaminophen 5-325 mg tablet 1 tab PO Q4-6H PRN (Reason: pain) Qty: 20 0RF finasteride 5 mg tablet 5 mg PO DAILY Qty: 90 3RF tamsulosin 0.4 mg capsule 0.8 mg PO DAILY Qty: 180 3RF Referrals: Estuardo Hinton MD [Primary Care Provider] -
--- NOTE | 2025-02-17 21:44 | PC.NURSE ---
Pt came in for low bp and low o2 sat. However, upon arrival all vitals within normal limits. Pt having memory issues, so unable to make issue clear to this nurse. Will follow up via phone with [facility] and with pt family.
[2025-02-17 21:52] LABS: Add Manual Diff / Slide Review NO; Basophils Absolute Auto 0 /uL (0-100); Basophils Percent Auto 0.6 % (0-2); Eosinophils Absolute Auto 0 /uL (0-450); Eosinophils Percent Auto 0.7 % (2-4); Hematocrit 25.4 % (41-53); Hemoglobin 8.7 g/dL (13.5-17.5); Lymphocytes Absolute Auto 1300 /uL (1100-4500); Lymphocytes Percent Auto 18.7 % (25-40); Mean Corpuscular HGB Conc 34.3 % (30-36); Mean Corpuscular Hemoglobin 32.5 PG (26-34); Mean Corpuscular Volume 94.7 fL (80-100); Monocytes Absolute Auto 800 /uL (0-900); Monocytes Percent Auto 11.6 % (3-14); Neutrophils Absolute Auto 4700 /uL (1500-7000); Neutrophils Percent Auto 68.4 % (50-75); Platelet Count 186 X10^3/uL (150-400); Red Blood Cell Count 2.69 X10^6/uL (4.5-5.9); Red Cell Distribution Width 14.5 % (11.6-14.8); White Blood Cell Count 6.9 X10^3/uL (4.5-11.0)
[2025-02-17 21:54] LABS: INR 1.4 (0.9-1.3); Prothrombin Time 15.7 SECONDS (9.4-12.5)
[2025-02-17 21:56] LABS: PTT Partial Thromboplastin Tim 31 SECONDS (25.1-36.5)
[2025-02-17 21:57] LABS: Alanine Aminotransferase 17 IU/L (<50); Albumin 3.1 g/dL (3.5-5.0); Albumin Globulin Ratio 1.3 (1.0-2.8); Alkaline Phosphatase 50 U/L (38-126); Aspartate Aminotransferase 28 IU/L (17-59); BUN Creatinine Ratio 33.9 (6-22); Bilirubin Total 0.6 mg/dL (0.2-1.3); Blood Urea Nitrogen 21 mg/dL (9-20); Calcium 8.2 mg/dL (8.4-10.2); Carbon Dioxide 29 mmol/L (22-32); Chloride 107 mmol/L (98-107); Creatine Kinase 229 U/L (55-170); Estimated Glomerular Filt Rate > 60 mL/min (>60); Globulin 2.4 g/dL (1.7-4.1); Glucose 126 mg/dL (70-99); HEMOLYSIS < 15 (0-50); Lactate (Lactic Acid) 1.5 mmol/L (0.7-2.1); Lipase 32 U/L (23-300); Magnesium 2.1 mg/dL (1.6-2.3); Potassium 3.9 mmol/L (3.4-5.1); Sodium 139 mmol/L (137-145); Total Protein 5.5 g/dL (6.3-8.2)
[2025-02-17 22:09] LABS: NT-proBNP (BNP-Adult 18+) 1000 pg/mL (<450); Troponin I < 0.012 ng/mL (0.01-0.034)
[2025-02-17 22:15] LABS: Procalcitonin 0.075 ng/mL (<0.5)
[2025-02-17] MEDS: MORPHINE 2 MG/ML INJ IV (22:59)
[2025-02-18] VITALS (26 sets, daily range): BP systolic 94–119; BP diastolic 32–55; PULSE 58–86; RESP 9–27; TEMP 36.3–36.8; O2SAT 86–100; BMI 19.9
[2025-02-18 00:45] LABS: Troponin I < 0.012 ng/mL (0.01-0.034)
[2025-02-18 01:37] LABS: Base Excess VBG 5.3 mmol/L (0-4); HCO3 VBG 30 mmol/L (24-28); Oxygen Saturation VBG 42 % (70-75); PCO2 VBG 46.4 mmHg (45-50); PO2 VBG 24 mmHg (35-45); Total CO2 VBG 30 mmol/L (24-29); pH VBG 7.42 (7.33-7.43)
[2025-02-18] MEDS: MORPHINE 2 MG/ML INJ IV (01:45)
[2025-02-18] MEDS: MORPHINE 4 MG/ML INJ IV (05:11)
[2025-02-18 06:04] LABS: Add Manual Diff / Slide Review NO; Basophils Absolute Auto 100 /uL (0-100); Basophils Percent Auto 1.2 % (0-2); Eosinophils Absolute Auto 100 /uL (0-450); Hematocrit 23.7 % (41-53); Hemoglobin 8.1 g/dL (13.5-17.5); Lymphocytes Absolute Auto 1400 /uL (1100-4500); Lymphocytes Percent Auto 20.7 % (25-40); Mean Corpuscular HGB Conc 34.3 % (30-36); Mean Corpuscular Hemoglobin 32.7 PG (26-34); Mean Corpuscular Volume 95.3 fL (80-100); Monocytes Absolute Auto 800 /uL (0-900); Monocytes Percent Auto 11.1 % (3-14); Neutrophils Absolute Auto 4500 /uL (1500-7000); Platelet Count 169 X10^3/uL (150-400); Red Blood Cell Count 2.49 X10^6/uL (4.5-5.9); Red Cell Distribution Width 14.9 % (11.6-14.8); White Blood Cell Count 6.9 X10^3/uL (4.5-11.0)
[2025-02-18 06:08] LABS: Alanine Aminotransferase 18 IU/L (<50); Albumin 3.1 g/dL (3.5-5.0); Albumin Globulin Ratio 1.2 (1.0-2.8); Alkaline Phosphatase 52 U/L (38-126); Aspartate Aminotransferase 41 IU/L (17-59); BUN Creatinine Ratio 34.4 (6-22); Bilirubin Total 0.6 mg/dL (0.2-1.3); Blood Urea Nitrogen 21 mg/dL (9-20); Calcium 8.2 mg/dL (8.4-10.2); Carbon Dioxide 27 mmol/L (22-32); Chloride 109 mmol/L (98-107); Estimated Glomerular Filt Rate > 60 mL/min (>60); Globulin 2.5 g/dL (1.7-4.1); Glucose 119 mg/dL (70-99); HEMOLYSIS < 15 (0-50); Potassium 4.7 mmol/L (3.4-5.1); Sodium 141 mmol/L (137-145); Total Protein 5.6 g/dL (6.3-8.2)
--- NOTE | 2025-02-18 06:23 | PC.ADMIT ---
[email or web address] Admission Note: Patient arrived heavily sedated, in no apparent respiratory or cardiac distress, alert to self only, chronic cath present on admission for retention. Able to move patient from stretcher to bed without difficulty. Patient unable to verbalize understanding of policies and procedures. Wound photos taken. The patient,Carmelo Mejias,84 y/o, was given written information regarding hospital policies, unit procedures and contact persons. Patient's smoking status: Never smoker. Vital Signs - 8 hr 02/17/25 22:30 02/17/25 22:30 02/17/25 23:00 Temperature Pulse Rate 78 71 Respiratory Rate 16 11 L Blood Pressure 131/58 L Pulse Oximetry 99 100 Oxygen Delivery Method Nasal Cannula Oximask Oxygen Flow Rate 2 4 02/17/25 23:01 02/17/25 23:01 02/17/25 23:30 Temperature Pulse Rate 73 Respiratory Rate 17 Blood Pressure 111/44 L 103/49 L Pulse Oximetry 100 Oxygen Delivery Method Oximask Oxygen Flow Rate 4 02/17/25 23:30 02/18/25 00:00 02/18/25 00:01 Temperature Pulse Rate 73 76 78 Respiratory Rate 11 L 12 20 Blood Pressure Pulse Oximetry 100 100 100 Oxygen Delivery Method Room Air Oxygen Flow Rate 02/18/25 00:01 02/18/25 00:30 02/18/25 00:31 Temperature Pulse Rate 69 72 Respiratory Rate 11 L 11 L Blood Pressure 114/55 L Pulse Oximetry 100 100 Oxygen Delivery Method Oxygen Flow Rate 02/18/25 00:31 02/18/25 01:00 02/18/25 01:00 Temperature Pulse Rate 72 Respiratory Rate 11 L Blood Pressure 105/49 L 109/51 L Pulse Oximetry 100 Oxygen Delivery Method Oximask Oxygen Flow Rate 4 02/18/25 01:30 02/18/25 02:00 02/18/25 02:30 Temperature Pulse Rate 83 68 67 Respiratory Rate 27 H 13 10 L Blood Pressure Pulse Oximetry 87 L 98 100 Oxygen Delivery Method Room Air Oximask Oxygen Flow Rate 2 02/18/25 03:00 02/18/25 03:30 02/18/25 03:42 Temperature Pulse Rate 66 75 Respiratory Rate 10 L 9 L Blood Pressure 117/54 L Pulse Oximetry 100 100 Oxygen Delivery Method Oximask Oxygen Flow Rate 2 02/18/25 03:42 02/18/25 04:00 02/18/25 04:01 Temperature Pulse Rate 73 66 Respiratory Rate 11 L 10 L Blood Pressure 95/48 L Pulse Oximetry 97 99 Oxygen Delivery Method Oxygen Flow Rate 02/18/25 04:01 02/18/25 04:18 02/18/25 04:30 Temperature Pulse Rate 66 68 Respiratory Rate 11 L 9 L Blood Pressure Pulse Oximetry 99 99 Oxygen Delivery Method Room Air Room Air Oxygen Flow Rate 02/18/25 04:30 02/18/25 05:00 02/18/25 05:40 Temperature 97.9 F Pulse Rate 80 65 Respiratory Rate 24 15 Blood Pressure 107/49 L 119/39 L Pulse Oximetry 86 L 95 Oxygen Delivery Method Oxygen Flow Rate 0
--- NOTE | 2025-02-18 06:38 | PC.WOUNDPHOT ---
R hip scar from prior hip replacement 01/26 R arm bruise LLE abrasion RLE swelling LUE forearm LUE RUE blanchable
[2025-02-18] MEDS: QUETIAPINE 25 MG TABLET PO ×2 (10:30→20:35)
[2025-02-18] MEDS: ACETAMINOPHEN 325 MG TABLET 650 MG PO ×2 (10:30→17:32)
--- NOTE | 2025-02-18 12:25 | PM.HP.1 ---
History of Present Illness History of Present Illness Date Patient Seen: 02/18/25 Time Patient Seen: 12:25 Date of Onset of Symptoms: 02/17/25 Chief complaint: low bp Narrative: Patient is an 84-year-old male with history of significant dementia who history is through emergency room physician. Apparently patient was brought in earlier yesterday for a fall which dislocated his hip he recently had hip surgery back in mid January for 01/15. ER replaced his hip and discharge him back to his home. Apparently things went well. He then presented again with shortness of breath and weakness. Has been noted to be hypoxic on presentation with 4 L of oxygen needed. Patient had chest x-ray which showed no abnormality. Otherwise is feeling well. Had no other significant change or complaint. This morning has no complaints. But is oriented to Kenisha Escobar only. REPLACED BY [facility] Medical History Urinary retention Durant catheter in place Obstructive uropathy Complex renal cyst Dementia Acquired hypothyroidism Surgical History Anesthesia History of hernia repair Family History Father Cancer Mother Bronchitis Social History household members: none Smoking Status: Never smoker alcohol intake: never caffeine: Yes Meds Home Medications and Allergies Home Medications Medication Instructions Recorded Confirmed Type finasteride 5 mg tablet 5 mg PO DAILY #90 tabs 10/23/24 02/17/25 Rx tamsulosin 0.4 mg capsule 0.8 mg (2 x 0.4 mg) PO DAILY #180 10/23/24 02/17/25 Rx caps acetaminophen 650 mg PO PRN PRN pain/fever 01/15/25 02/17/25 History magnesium hydroxide 400 mg/5 mL 400 mg PO PRN PRN Constipation 01/15/25 02/17/25 History oral suspension (Milk of Magnesia) aspirin 81 mg tablet,delayed 81 mg PO BID #112 tabs 01/17/25 02/17/25 Rx release oxycodone 5 mg tablet 5 mg PO Q3H PRN Pain, Moderate 01/17/25 02/17/25 Rx (4-6) #15 tabs fluoxetine 10 mg capsule (Prozac) 10 mg PO DAILY #30 caps 01/24/25 02/17/25 Rx polyethylene glycol 3350 17 gram 17 g PO DAILY Constipation #30 ea 01/24/25 02/17/25 Rx oral powder packet olanzapine 2.5 mg tablet 2.5 mg PO DAILY #30 tabs 01/25/25 02/17/25 Rx olanzapine 7.5 mg tablet 7.5 mg PO BEDTIME #30 tabs 01/25/25 02/17/25 Rx quetiapine 25 mg tablet 25 mg PO BID #60 tabs 01/25/25 02/17/25 Rx hydrocodone 5 mg-acetaminophen 325 1 tab PO Q4-6H PRN pain #20 tabs 02/17/25 02/17/25 Rx mg tablet Allergies Allergy/AdvReac Type Severity Reaction Status Date / Time No Known Drug Allergies Allergy Verified 02/17/25 21:31 Review of Systems Review of Systems Narrative: Unable to obtain Exam Vital Signs (past 8 hours): - 02/18/25 04:30 02/18/25 04:30 02/18/25 05:00 Temperature Pulse Rate 68 80 Respiratory Rate 9 L 24 Blood Pressure 107/49 L Pulse Oximetry 99 86 L Oxygen Flow Rate 02/18/25 05:40 02/18/25 11:30 Temperature 97.9 F 98.3 F Pulse Rate 65 58 L Respiratory Rate 15 18 Blood Pressure 119/39 L 107/32 L Pulse Oximetry 95 97 Oxygen Flow Rate 0 0 Oxygen Delivery Method Room Air Oxygen Flow Rate 0 Narrative Exam Narrative: Alert elderly male interacting but not answering questions. Did know he was in [place] that was really the only question answered with me. Bulbar conjunctiva are pale mucous membranes moist neck supple without adenopathy JVD or bruits lungs are clear heart is regular rate and rhythm abdomen is soft positive bowel sounds nontender extremities without cyanosis clubbing or edema. Neurologic exam is nonfocal. Patient is confused Objective Labs 02/18/25 05:04 02/18/25 05:04 Labs: Laboratory Results - last 24 hr 02/17/25 02/18/25 02/18/25 21:27 00:12 01:34 WBC 6.9 RBC 2.69 L Hgb 8.7 L Hct 25.4 L MCV 94.7 MCH 32.5 MCHC 34.3 RDW 14.5 Plt Count 186 Neut % (Auto) 68.4 Lymph % (Auto) 18.7 L [place]go % (Auto) 11.6 Eos % (Auto) 0.7 L Baso % (Auto) 0.6 Neut # (Auto) 4700 Lymph # (Auto) 1300 Hidalgo # (Auto) 800 Eos # (Auto) 0 Baso # (Auto) 0 PT 15.7 H INR 1.4 H APTT 31 VBG pH 7.42 VBG pCO2 46.4 VBG pO2 24 L VBG HCO3 30 H VBG Total CO2 30 H VBG O2 Saturation 42 L VBG Base Excess 5.3 H FiO2 % 30.0 % Sodium 139 Potassium 3.9 Chloride 107 Carbon Dioxide 29 BUN 21 H Creatinine 0.62 L Estimated GFR > 60 BUN/Creatinine Ratio 33.9 H Glucose 126 H Lactate 1.5 Calcium 8.2 L Magnesium 2.1 Total Bilirubin 0.6 AST 28 ALT 17 Alkaline Phosphatase 50 Total Creatine Kinase 229 H Troponin I < 0.012 < 0.012 NT-Pro-B Natriuret Pep 1000 H Total Protein 5.5 L Albumin 3.1 L Globulin 2.4 Albumin/Globulin Ratio 1.3 Lipase 32 Procalcitonin 0.075 05/18/25 05:04 WBC 6.9 RBC 2.49 L Hgb 8.1 L Hct 23.7 L MCV 95.3 MCH 32.7 MCHC 34.3 RDW 14.9 H Plt Count 169 Neut % (Auto) 66.0 Lymph % (Auto) 20.7 L [place]go % (Auto) 11.1 Eos % (Auto) 1.0 L Baso % (Auto) 1.2 Neut # (Auto) 4500 Lymph # (Auto) 1400 [place]go # (Auto) 800 Eos # (Auto) 100 Baso # (Auto) 100 PT INR APTT VBG pH VBG pCO2 VBG pO2 VBG HCO3 VBG Total CO2 VBG O2 Saturation VBG Base Excess FiO2 % Sodium 141 Potassium 4.7 Chloride 109 H Carbon Dioxide 27 BUN 21 H Creatinine 0.61 L Estimated GFR > 60 BUN/Creatinine Ratio 34.4 H Glucose 119 H Lactate Calcium 8.2 L Magnesium Total Bilirubin 0.6 AST 41 ALT 18 Alkaline Phosphatase 52 Total Creatine Kinase Troponin I NT-Pro-B Natriuret Pep Total Protein 5.6 L Albumin 3.1 L Globulin 2.5 Albumin/Globulin Ratio 1.2 Lipase Procalcitonin Assessment & Plan Assessment & Plan narrative: Anemia. Pretty severe. Patient lows in the 30s 31 as recently as a few days ago. Now at 23. No evidence of bleeding that I can get a history of. Will follow with serial CBC will type and cross and guaiac stool. Clearly this could be part of his issue with his acute respiratory failure and will just have to follow. Will give blood if needed. Acute respiratory failure. Maybe secondary to his pulmonary embolus. Patient apparently was diagnosed in a week ago. Was on Eliquis. But currently he seems to be doing well with no O2 requirement Pulmonary embolus. Puts us in a difficult position given the fact that he has recent diagnosis of pulmonary embolus and now is pretty significantly anemic. The question is is he bleeding or not. At this point I think we have to hold his Eliquis and see what the next 24 hour brings if he would lose his no further blood and this is just a progression of blood loss from his original surgery then we can restart his Eliquis certainly he has risk for poor outcome from this and where a little bit stuck between a rock and a hard place will just have to follow closely Dementia. Appears to be pretty severe. Patient has had history of agitation. Will continue his usual meds and follow. DVT prophylaxis patient apparently may have a DVT. SCDs are all we are going to be able to do at this point. Patient's platelets are slightly down so Lovenox would not be a good choice patient has a PE and we would put him back on his Eliquis if we needed and we are able to treat. I think he is high risk for bleed clearly and will need to follow. Code status. Discussed with son. Patient has been in no code and does not want any aggressive therapy or to be on any respiratory intubation Disposition. Discussed with son. This is a difficult place to be. It is certainly possible high risk for terminal event. Patient has a PE and was on Eliquis next and now was anemic. This is a high-risk situation in the he could either bleed out or have a worsening PE. Currently pulmonary noel he appears to be stable. Discussed with son he understands questions answered. 75 minutes spent discussing with son nursing chart review history physical dictation orders Time-Based Coding :: [TOTAL MINUTES] spent with patient and on the chart (including review of chart, obtaining history, exam, reviewing outside data, placing orders, documenting exam and treatment plan, and counseling patient) on [DATE]. Quality VTE Deep Vein Thrombosis/Pulmonary Embolism Present on Admission: No
--- NOTE | 2025-02-18 13:36 | CM.DANOTE ---
Initial DCP Assessment Note Pt is an 84 yo M, resident at [facility]), presents from [facility] w/ low BP, low O2 sats and temp after pain medicine administered, patient was seen in the ER 02/17 after a fall, hip dislocation reduction and was sent back to [facility]. PCP: Dr Hinton Payer: MCR/SANJEEV Reviewed chart, pt discussed with Dr Bowie this morning; patient now suspected to be bleeding, source unknown, may need blood transfusion. DR Hinton returns to service Monday 02/19. Patient with severe dementia, lives at [facility] where all ADLs require assistance due to patient's dementia. Patient is DNR. Flaco Mejias (son/DPOA) [phone] may benefit from a discussion about his Dad's goals of care with patient's PCP. SW team will plan to follow closely as medical plan of care unfolds. Plan: Discharge back to [facility] vs SNF (likely [facility]) depending on patient's eventual needs, medical plan of care still unfolding. TAMMI Umanzor Discharge Planning/Care Management CM Discharge Assessment Start: 02/18/25 04:18 Freq: Status: Active Protocol: Document 02/18/25 13:33 MARIE (Rec: 02/18/25 13:36 MARIE [id number]) Discharge Planning Assessment Assigned Lacquer Pin Press Operator TAMMI Del Rio/Assigned Designee Name Flaco Mejias (son) Advance Directives? Yes Advance Directives on File No History Provided By Family Member,Medical Record Has Patient been admitted in last 30 Yes days? Comment DC to [facility] 01/25. ER 02/01, 02/15, (fall). Prior Living Arrangements Assisted Living Household Members none Type of transporation used prior to Relies on Others admit Facility Name Admitted From: [facility] Willing to Return to Facility? Yes Independent with ADL's No Is patient alert and oriented? No Needs Assistance With Bathing,Grooming,Meal Prep, Toileting,Managing Medications ,Home Chores / Shopping Barriers to Discharge Yes Discharge Plan Assisted Living Facility Transportation Arrangement Facility van SNF/HH Preference [facility], if SNF is needed.
[2025-02-18 16:26] LABS: Add Manual Diff / Slide Review NO; Basophils Absolute Auto 100 /uL (0-100); Basophils Percent Auto 1.2 % (0-2); Eosinophils Absolute Auto 200 /uL (0-450); Eosinophils Percent Auto 2.4 % (2-4); Hematocrit 21.9 % (41-53); Hemoglobin 7.6 g/dL (13.5-17.5); Lymphocytes Absolute Auto 1100 /uL (1100-4500); Lymphocytes Percent Auto 16.6 % (25-40); Mean Corpuscular HGB Conc 34.9 % (30-36); Mean Corpuscular Hemoglobin 32.8 PG (26-34); Mean Corpuscular Volume 93.8 fL (80-100); Monocytes Absolute Auto 800 /uL (0-900); Monocytes Percent Auto 11.7 % (3-14); Neutrophils Absolute Auto 4500 /uL (1500-7000); Neutrophils Percent Auto 68.1 % (50-75); Platelet Count 158 X10^3/uL (150-400); Red Blood Cell Count 2.33 X10^6/uL (4.5-5.9); Red Cell Distribution Width 14.2 % (11.6-14.8); White Blood Cell Count 6.6 X10^3/uL (4.5-11.0)
--- NOTE | 2025-02-18 17:51 | PC.NURSE ---
Addendum entered by Candi Andrade R.N. 02/18/25 18:12: 1754 Call received from . Orders received for 0.5 mg of Ativan q 4 hours PRN and protonix 20 mg IV daily. Blood values discussed, orders received for 2 units of PRBCs to be given each over 4 hours. Original Note: 1756 Patient attempting to get out of bed and pull medical devices. Patient reoriented multiple times, however continues to pull medical devices and attempt to get out of bed. Call placed to MD Bowie regarding possible PRN orders for agitation.
[2025-02-18] MEDS: LORazepam 0.5 MG TABLET PO (19:47)
[2025-02-18] MEDS: OXYCODONE IR 5 MG TABLET PO (20:35)
[2025-02-18] MEDS: OLANZapine 2.5 MG TABLET 7.5 MG PO (20:35)
[2025-02-19 00:01] VITALS: BP 110/44; PULSE 68; RESP 16; TEMP 36.4
[2025-02-19] MEDS: LORazepam 0.5 MG TABLET PO (00:18)
[2025-02-19] MEDS: OXYCODONE IR 5 MG TABLET PO ×3 (00:18→17:17)
[2025-02-19 05:21] LABS: Add Manual Diff / Slide Review NO; Basophils Absolute Auto 0 /uL (0-100); Basophils Percent Auto 0.8 % (0-2); Eosinophils Absolute Auto 200 /uL (0-450); Eosinophils Percent Auto 2.8 % (2-4); Hematocrit 28.4 % (41-53); Hemoglobin 10.1 g/dL (13.5-17.5); Lymphocytes Absolute Auto 1000 /uL (1100-4500); Lymphocytes Percent Auto 14.7 % (25-40); Mean Corpuscular HGB Conc 35.4 % (30-36); Mean Corpuscular Hemoglobin 32.7 PG (26-34); Mean Corpuscular Volume 92.2 fL (80-100); Monocytes Absolute Auto 800 /uL (0-900); Monocytes Percent Auto 11.9 % (3-14); Neutrophils Absolute Auto 4600 /uL (1500-7000); Neutrophils Percent Auto 69.8 % (50-75); Platelet Count 154 X10^3/uL (150-400); Red Blood Cell Count 3.08 X10^6/uL (4.5-5.9); Red Cell Distribution Width 14.2 % (11.6-14.8); White Blood Cell Count 6.5 X10^3/uL (4.5-11.0)
[2025-02-19 05:36] LABS: Alanine Aminotransferase 15 IU/L (<50); Albumin Globulin Ratio 1.2 (1.0-2.8); Alkaline Phosphatase 49 U/L (38-126); Aspartate Aminotransferase 26 IU/L (17-59); Bilirubin Total 0.9 mg/dL (0.2-1.3); Blood Urea Nitrogen 21 mg/dL (9-20); Calcium 8.1 mg/dL (8.4-10.2); Carbon Dioxide 29 mmol/L (22-32); Chloride 107 mmol/L (98-107); Estimated Glomerular Filt Rate > 60 mL/min (>60); Globulin 2.5 g/dL (1.7-4.1); Glucose 105 mg/dL (70-99); HEMOLYSIS < 15 (0-50); Potassium 3.7 mmol/L (3.4-5.1); Sodium 138 mmol/L (137-145); Total Protein 5.5 g/dL (6.3-8.2)
[2025-02-19 07:00] VITALS: O2SAT 94
--- NOTE | 2025-02-19 07:30 | PM.PN.IH.1 ---
Subjective Subjective Date Patient Seen: 02/19/25 Time Patient Seen: 07:30 Interval history: 84-year-old male well known to me admitted over the weekend after hypoxia at his assisted living/memory care facility. Patient had been admitted to [facility] in [facility] after first presenting to [facility] here. He had abnormal troponin suggesting active cardiac event and so he was transferred to closest available facility with bed availability. He was diagnose with a pulmonary embolism he was started on Eliquis. He also positive for COVID-19, and also felt to have a type 2 NSTEMI. He was discharged on 02/13/2025 He was admitted here because of his hypoxia after presenting after falling and dislocating his hip. He was had fallen and fractured his hip with it being surgically repaired on 01/15/2025. Since admission he was found to be anemic and his anticoagulation was held. His hypoxia very quickly resolved in an unusual fashion. Because of his recent PE and his anemia it has been difficult to ascertain which he was more important treatment of his PE verses potential bleeding Blood counts dropped enough yesterday that he was received transfusion. Hemoglobin hematocrit much improved this morning Patient also with dementia and some agitated behavior requiring some Ativan yesterday This morning patient recognizes me it seems. Denies any pain except for maybe that hip off and on. Denies any abdominal pain of any sort including stomach pain epigastric pain etcetera. No evidence bleeding he was not nauseated Exam Vital Signs (past 8 hours): - 02/19/25 00:01 Temperature 97.6 F Pulse Rate 68 Respiratory Rate 16 Blood Pressure 110/44 L Oxygen Delivery Method Room Air Oxygen Flow Rate 0 Objective Labs 02/19/25 05:06 02/19/25 05:06 Labs: Laboratory Results - last 24 hr 02/18/25 02/18/25 02/19/25 13:15 16:15 05:06 WBC 6.6 6.5 RBC 2.33 L 3.08 L Hgb 7.6 L 10.1 L Hct 21.9 L 28.4 L MCV 93.8 92.2 MCH 32.8 32.7 MCHC 34.9 35.4 RDW 14.2 14.2 Plt Count 158 154 Neut % (Auto) 68.1 69.8 Lymph % (Auto) 16.6 L 14.7 L Glades % (Auto) 11.7 11.9 Eos % (Auto) 2.4 2.8 Baso % (Auto) 1.2 0.8 Neut # (Auto) 4500 4600 Lymph # (Auto) 1100 1000 L Glades # (Auto) 800 800 Eos # (Auto) 200 200 Baso # (Auto) 100 0 Sodium 138 Potassium 3.7 Chloride 107 Carbon Dioxide 29 BUN 21 H Creatinine 0.60 L Estimated GFR > 60 BUN/Creatinine Ratio 35.0 H Glucose 105 H Calcium 8.1 L Total Bilirubin 0.9 AST 26 ALT 15 Alkaline Phosphatase 49 Total Protein 5.5 L Albumin 3.0 L Globulin 2.5 Albumin/Globulin Ratio 1.2 Blood Type A Positive Antibody Screen Negative Crossmatch See Detail [facility] Medical History Urinary retention Durant catheter in place Obstructive uropathy Complex renal cyst Dementia Acquired hypothyroidism Surgical History Anesthesia History of hernia repair Family History Father Cancer Mother Bronchitis Social History household members: none Smoking Status: Never smoker alcohol intake: never caffeine: Yes Assessment & Plan Assessment & Plan narrative: 1. Acute pulmonary embolism-diagnose approximately 2 weeks ago or so. I believe his risk of issues related to his pulmonary embolism outweigh his risk of bleeding. No evidence of active large volume bleeding at this time. Therefore will restart his Eliquis. However given his age and risk of bleeding will institute at 2.5 mg b.i.d. 2. Acute respiratory failure-resolved 3. Anemia-no evidence of large volume bleeding at this time. No symptoms to suggest intra-abdominal or GI bleeding etcetera. Obviously difficult to ascertain for sure given his underlying dementia. Continue to monitor but will resume anticoagulation as above. Did receive transfusion yesterday and will monitor H&H as well as clinical evidence of bleeding 4. Dementia-continue patient's outpatient medications which includes quetiapine and olanzapine which has been effective in helping with his agitated behavior 5. -patient previously treated with antibiotic therapy during his [place] [facility] [place], no evidence of active infection at this time 6. Disposition-patient to return to [facility]. Time-Based Coding :: [TOTAL MINUTES] spent with patient and on the chart (including review of chart, obtaining history, exam, reviewing outside data, placing orders, documenting exam and treatment plan, and counseling patient) on [DATE]. Quality VTE Deep Vein Thrombosis/Pulmonary Embolism Present on Admission: No IH PROFEE Floral Designer Salesperson Document charge(s): Yes Charge Codes Subsequent inpatient/observation care: [id number]
[2025-02-19 08:00] VITALS: BP 191/40; PULSE 65; RESP 15; TEMP 36.4; O2SAT 95
[2025-02-19] MEDS: PANTOPRAZOLE 40 MG VIAL 20 MG IV (09:05)
[2025-02-19] MEDS: FINASTERIDE 5 MG TABLET PO (09:06)
[2025-02-19] MEDS: QUETIAPINE 25 MG TABLET PO ×2 (09:06→20:11)
[2025-02-19] MEDS: FLUoxetine 10 MG CAPSULE PO (09:06)
[2025-02-19] MEDS: OLANZapine 2.5 MG TABLET PO (09:06)
[2025-02-19] MEDS: TAMSULOSIN 0.4 MG CAPSULE 0.8 MG PO (09:06)
[2025-02-19] MEDS: APIXABAN 5 MG TABLET 2.5 MG PO ×2 (09:06→20:19)
[2025-02-19] MEDS: polyethylene glycoL 3350 17 GM POWD.PACK PO (09:07)
--- NOTE | 2025-02-19 11:52 | PT-IP ANOTE ---
Pt readm after ED visit when his previously operated right hip dislocated and was reduced on 02/17/25. ED d/c paperwork does not reflect previous ortho orders. Pt originally experienced right hip fracture in January and underwent surgery by Dr. Talbot on 01/15/25 and was made WBAT and placed on posterior hip precautions with no flexion past 70 deg, and no crossing or IR of operated leg. Another physician performed the reduction 02/17/25. PT leaves message for Dr. Talbot to ask her about any updated precautions. Will proceed with previous WBAT and other hip precautions per her order on 01/16/25 unless updated by ortho.
--- NOTE | 2025-02-19 12:07 | CM.DPNOTE ---
Addendum entered by TAMMI Mccoy 02/19/25 15:26: ADD: MATA attempted to call [facility] to follow up on the clinicals sent earlier today and alerting them to likely d/c back in 1-2 days and no answer. MATA called [facility] admissions and confirmed pt had been discharged to their facility about a month ago after his initial hip repair and was somewhat difficult to keep from wandering due to his dementia and was only at their facility for about a week before he discharge back to [facility] but into their Memory Care unit. [facility] willing to review with their team and follow in case SNF recommended after PT eval and Cassandra review. [facility] would be willing to consider but would need their DNS and team to approve. BF Original Note: DCP Cont: Per MD, pt needed some Ativan overnight as he was somewhat restless and pulling on lines but redirectable. Pt making improvements and recognized MD today and MD anticipates return to [facility] in the next 1-2 days. PT ordered and pending. MATA secure emailed Isabell at [facility] clinicals to review for likely return in the next 1-2 days. Plan: SW to follow closely for Cassandra review and PT eval to confirm return to [facility] when medically stable and any further identified needs. TAMMI Mccoy
--- NOTE | 2025-02-19 12:13 | PT-IP ANOTE ---
After full chart review, pt is on bed rest. PT checks in on pt who is lying in bed and talking to himself out loud. Spoke with SW and nsg about holding today. SW is on WebEx and will ask Dr. Hinton for OOB order so that PT can proceed with assessment when pt is more appropriate. May also be able to hear back from Dr. Talbot about precautions and WB and PT communicates this with nsg.
--- NOTE | 2025-02-19 12:28 | DIET.CONS2 ---
Dietary Inpatient Consultation Note Admission Date: 02/18/2025 04:12 84y M with hx dementia and hx fracture with postsurgical dislocation referred to nutrition for low body weight. Pt with severe BMI for age but of higher BW than previous hospitalization. Pt enjoys ONS smoothies, will send bid with meal trays to support nutrition status and healing. Diet: 02/18/25 Breakfast General (Regular) Diet Diet Modifications: May Advance Diet as Tolerated: No Safety Tray needed?: No Food Texture: Level 7 - Regular Liquid Consistency: Level 0 - Thin 02/18/25 Dinner General (Regular) Diet Diet Modifications: Nutrition Percent Meal Consumed 0% 02/18/25 18:00 Electronically Signed by: Mary Turk 02/19/25 12:28 Clinical Dietitian [address] [id number]
--- NOTE | 2025-02-19 13:44 | PT-IP ANOTE ---
Artig gets PT as Dr. Talbot is on the phone. Dr. Talbot verbally confirms over the phone for pt to be WBAT RLE, no hip flexion past 90 deg, no crossing of legs or IR right leg. Pt to wear knee immobilizer. Aruna Forde, to write order in chart.
[2025-02-19 15:19] LABS: Hematocrit 31.8 % (41-53)
[2025-02-19 19:00] VITALS: O2SAT 95
[2025-02-19] MEDS: HYDROCODONE/ACET 5/325 TABLET 1 TAB PO ×2 (19:06→23:17)
[2025-02-19] MEDS: OLANZapine 2.5 MG TABLET 7.5 MG PO (20:11)
[2025-02-20 05:14] LABS: Hematocrit 28.9 % (41-53); Hemoglobin 10.1 g/dL (13.5-17.5)
--- NOTE | 2025-02-20 06:52 | PM.PN.IH.1 ---
Subjective Subjective Date Patient Seen: 02/20/25 Time Patient Seen: 06:52 Interval history: Pretty much uneventful day yesterday No physical therapy yesterday as waiting for clarification from Ortho regarding restrictions. That has now in place and should be able to evaluate him more carefully today Hemoglobin hematocrit stable back on Eliquis. No evidence of active bleeding Exam Vital Signs (past 8 hours): Oxygen Delivery Method Room Air Oxygen Flow Rate 0 Objective Labs 02/20/25 04:55 02/19/25 05:06 Labs: Laboratory Results - last 24 hr 02/19/25 02/20/25 15:13 04:55 Hgb 11.0 L 10.1 L Hct 31.8 L 28.9 L PFSH Medical History Urinary retention Durant catheter in place Obstructive uropathy Complex renal cyst Dementia Acquired hypothyroidism Surgical History Anesthesia History of hernia repair Family History Father Cancer Mother Bronchitis Social History household members: none Smoking Status: Never smoker alcohol intake: never caffeine: Yes Assessment & Plan Assessment & Plan narrative: 1. Acute pulmonary embolism-diagnose approximately 2 weeks ago or so. I believe his risk of issues related to his pulmonary embolism outweigh his risk of bleeding. Continue on Eliquis 2.5 mg b.i.d. at this time. Continue to monitor for evidence of bleeding 2. Acute respiratory failure-resolved. Likely secondary to his pulmonary embolism. Continue anticoagulation as above. 3. Anemia-no evidence of large volume bleeding at this time. Continue to monitor for evidence of bleeding. Recheck hemoglobin hematocrit in a.m. 4. Dementia-continue patient's outpatient medications which includes quetiapine and olanzapine which has been effective in helping with his agitated behavior 5. -patient previously treated with antibiotic therapy during his previous hospitalization at [facility] [place], no evidence of active urinary tract infection at this time 6. Disposition-patient to return to [facility] care unit verses [facility] depending on his physical therapy evaluation. Time-Based Coding :: [TOTAL MINUTES] spent with patient and on the chart (including review of chart, obtaining history, exam, reviewing outside data, placing orders, documenting exam and treatment plan, and counseling patient) on [DATE]. Quality VTE Deep Vein Thrombosis/Pulmonary Embolism Present on Admission: No IH PROFEE Morgue Technician Document charge(s): Yes Charge Codes Subsequent inpatient/observation care: [id number]
[2025-02-20] MEDS: APIXABAN 5 MG TABLET 2.5 MG PO (08:30)
[2025-02-20] MEDS: PANTOPRAZOLE 40 MG VIAL 20 MG IV (08:30)
[2025-02-20] MEDS: QUETIAPINE 25 MG TABLET PO (08:31)
[2025-02-20] MEDS: TAMSULOSIN 0.4 MG CAPSULE 0.8 MG PO (08:31)
[2025-02-20] MEDS: FLUoxetine 10 MG CAPSULE PO (08:31)
[2025-02-20] MEDS: FINASTERIDE 5 MG TABLET PO (08:31)
[2025-02-20] MEDS: OLANZapine 2.5 MG TABLET PO (08:32)
[2025-02-20] MEDS: polyethylene glycoL 3350 17 GM POWD.PACK PO (08:32)
[2025-02-20 08:42] VITALS: BP 111/47; RESP 18; TEMP 36.4; O2SAT 97; O2SAT 98
--- NOTE | 2025-02-20 09:32 | PT.IIE ---
Current Diagnoses Anemia, unspecified (02/18/25) Surgical History (Last Reviewed 01/24/25 @ 09:01 by Estuardo Hinton MD) Anesthesia History of hernia repair Medical History (Last Reviewed 01/24/25 @ 09:01 by Estuardo Hinton MD) Acquired hypothyroidism Complex renal cyst Dementia Durant catheter in place Obstructive uropathy Urinary retention Physical Therapy Inpatient Evaluation/Re-Eval M1 PT/OT-IP Prior Functional Status Start: 02/19/25 11:42 Freq: NEEDED Status: Active Protocol: Document 02/20/25 08:40 MB (Rec: 02/20/25 09:31 MB Desktop) Medical Review Prior Functional Status Medical History Reviewed Yes Communication Unsure baseline diet and pt eating full breakfast well and rapidly on PT arrival, no coughing Mobility and Gait Unsure how much he was mobilizing at facility. Per chart, dislocated right hip at facility, was reduced in ED, returned back to ED with hypotension. Activities of Daily Living and IADL's Assistance for all mobility and ADLs Social History Household Members none Living Arrangements Assisted Living Number of Stairs To Enter/Railing? Accessible living at facility, accessible BR, adjustable bed , w/c, walker, lift, assistance, accessible entrance M2 PT-IP Current Condition Start: 02/19/25 11:42 Freq: NEEDED Status: Active Protocol: Document 02/20/25 08:40 MB (Rec: 02/20/25 09:31 MB Desktop) Physical Therapy Current Condition Current Condition Evaluation Date 02/20/25 Treatment Diagnosis Hypotension, right hip dislocation and reduction within 24 hours of adm M3 PT-IP Subjective Start: 02/19/25 11:42 Freq: NEEDED Status: Active Protocol: Document 02/20/25 08:40 MB (Rec: 02/20/25 09:31 MB Desktop) Subjective Physical Therapy Visit Type Type Initial Evaluation Visit Start Time 08:40 Visit Stop Time 08:55 Number of PIZZA MA[employer]ER Visits 0 Physical Therapy Visit Comments Patient Comments Pt happily eating, does not make conversation relevant to questions asks, states he is glad he hasn't fallen and busted his head yet, so that is good Therapy Pain Assessment Pain When Pain Assessed At Rest Pain Present Pain Present Denied Pain M4 PT-IP Mobility and Gait Start: 02/19/25 11:42 Freq: NEEDED Status: Active Protocol: Document 02/20/25 08:40 MB (Rec: 02/20/25 09:31 MB Desktop) PT-Bed Mobility Assessment Rolling Level of Assist Maximal Assistance,2 Person Assistance Supine to Sit Supine to Sit Maximum Assistance,2 Person Assistance,Head of Bed Elevated,Bedrails Sit to Supine Sit to Supine Maximum Assistance,2 Person Assistance Scooting Scooting to Edge of Bed Maximum Assistance PT-Transfer Assessment Comments Mobility Comments Pt tends to IR his right leg with all bed mobility and so PT assistance to hold and guard leg to keep it in neutral to avoid dislocation. Nsg with PT during short assessment. BP and HR is 90/51 in right UE in hook lying upon arrival and mildly lower with sitting EOB. Pt cannot follow any commands to put left foot on the floor or push up from the bed to attempt standing today, returned to supine and left with nsg. R ankle is somewhat edematous, right immobilizer is donned on RLE PT-Balance Assessment Sitting Balance and Reactions Static Sitting Balance Ability Fair Dynamic Sitting Balance Ability Poor Comments Other Balance Tests/Deviations/Treatment Inability to follow commands : to put left foot on the floor, keeps left foot DF and then tends to try to step on PT's foot M5 PT-IP Objective Assessments Start: 02/19/25 11:42 Freq: NEEDED Status: Active Protocol: Document 02/20/25 08:40 MB (Rec: 02/20/25 09:31 MB Desktop) Orientation Orientation/Cognition Level of Alertness Confusional State Orientation Name,Birthday Safety Awareness Decreased Safety Awareness Memory Description Short Term Impaired,Stay Cutter Impaired Gross Range of Motion Upper Extremity ROM Impairments Unable to follow commands and did not not deficits Lower Extremity ROM Assessment Right Impaired Strength Comments Strength Comments Unable to follow ROM and MMT commands Coordination Assessment Gross Coordination Gross Coordination Impaired Assessment Coordination Comments Cannot follow commands, no trouble eating/UE coordination noted Sensation Assessment Comments Sensation Comments Unable to follow commands M6 PT-IP Treatment Start: 02/19/25 11:42 Freq: NEEDED Status: Active Protocol: Document 02/20/25 08:40 MB (Rec: 02/20/25 09:31 MB Desktop) Physical Therapy Treatment Education Education Provided Precautions,Weight Bearing Status,Safety M7 PT-IP Assessment and Plan Start: 02/19/25 11:42 Freq: NEEDED Status: Active Protocol: Document 02/20/25 08:40 MB (Rec: 02/20/25 09:31 MB Desktop) PT Summary Assessment and Plan Potential Rehabilitation Potential Poor Status of Condition at Evaluation Evolving Summary Impairments Pain,ROM,Strength,Balance, Coordination,Cognition,Bed Mobility,Transfers,Gait, Activity Tolerance Assessment Summary Pt is an 84 y/o male adm with hypotension. Since his right hip fracture and surgery in January, he d/cd to facility and appears to have had adm to outside facility, was dx with DVT and PE, has been on anti- coagulants, dislocated right hip and it was reduced in the ED on 02/17/25. PT spent a lot of time yesterday clarifying WB orders with Dr. Talbot, his original surgeon, since he had not yet followed up with her and ED d/c orders differed after the right hip reduction on 02/17/25. Pt is WBAT in right knee immobilizer with standard right hip precautions . Pt presents with confusion and IR right leg often in the bed. He is unable to understand any hip precautions and is at high risk for another dislocation. Can con't PT efforts as pt tolerates and consider d/c acute PT if he does not progress. Goals Bed Mobility Goal Contact Guard Assistance Transfer Goal Contact Guard Assistance,Front Wheeled Walker Gait Goal Contact Guard Assistance,Front Wheel Walker Gait Distance 25 Days to Meet Goals 5 Frequency of Treatment Frequency Of Treatment Once a Day Treatment Plan Physical Therapy Treatment Plan Bed Mobility Training,Transfer Training,Gait Training, Therapeutic Exercise,Balance Retraining,Discharge Planning, Hot or Cold Pack,Neuromuscular Re-ed,Coordination Retraining ,Manual Therapy Precautions Posterior Hip Precautions No Hip Flexion > 90 degrees,No Hip Internal Rotation,No Hip Adduction Other Precautions Right knee immobilizer Weight Bearing Status Weight Bearing Status Weight Bear as Tolerated Recommendations To Nursing Amount of Assist Needed Total Assistance Discharge Recommendations PT Discharge Recommendations SNF Rehab Other Discharge Recommendations SNF vs return to [facility] if he does not progress with PT Transportation Needs at Discharge Stretcher/Ambulance - PT assist x2
--- NOTE | 2025-02-20 11:47 | P.DS_ITS ---
History of Present Illness History of Present Illness Date Patient Seen: 02/20/25 Time Patient Seen: 11:48 Chief complaint: low bp Narrative: Patient is an 84-year-old male with history of significant dementia who history is through emergency room physician. Apparently patient was brought in earlier yesterday for a fall which dislocated his hip he recently had hip surgery back in mid January for 01/15. ER replaced his hip and discharge him back to his home. Apparently things went well. He then presented again with shortness of breath and weakness. Has been noted to be hypoxic on presentation with 4 L of oxygen needed. Patient had chest x-ray which showed no abnormality. Otherwise is feeling well. Had no other significant change or complaint. This morning has no complaints. But is oriented to Kenisha Escobar {[place]} only. {from Dr. Bowie's H&P 02/18/2025} Discharge Providers Provider Date of admission: 02/18/25 04:12 Discharge Date: 02/20/25 Primary care physician: Estuardo Hinton MD Consults: 02/18/25 05:54 Consult to Dietitian, Adult Routine Comment: Reason For Exam: low protein + low body weight 02/19/25 10:24 Consult to Physical Therapy Evaluate & Treat Comment: Physician Instructions: Evaluate and Treat Discharge provider: Estuardo Hinton MD Summary Hospital Course Discharge Diagnosis: 1. Hypoxia 2. Acute pulmonary embolism 3. Anemia, acute 4. Status post right hip relocation 5. Status post right hip hemiarthroplasty due to fall and fracture 6. Dementia 7. Acquired hypothyroidism 8. Obstructive uropathy 9. Bladder atony Hospital Course: As above patient was admitted via the emergency department with an episode of hypoxia and significant anemia Patient was been recently started on anticoagulation because of the relatively recent finding of the acute pulmonary emboli at an outside hospital. This was held for the initial part of his hospitalization. He was hypoxia resolved very quickly. That has no evidence of large volume bleeding. Patient was transfused packed red blood cells and had appropriate response with no further significant decline in hemoglobin hematocrit. Therefore anticoagulation he was restarted that is slightly lower dose Patient also recently had a fall and sustained a dislocation of his recently repaired right hip. This was relocated emergency department but because of this patient was having increased gait disorder and mild discomfort. He was seen during this hospitalization by skilled therapy who evaluated him felt like he required additional assistance and will continue with skilled therapies in halfway facility with the listed restrictions on movement of his right hip due to the dislocation. He also course he had recently fallen and fractured that hip which he was what required the surgical repair and he needs continued ongoing skilled therapy for continued rehabilitation from the original fall, fracture, and surgical repair. Therefore placement in halfway seems to make the most sense at this time. At time of discharge patient was not hypoxic normal vital signs including oxygen saturation. He was working with skilled therapy. Patient was have a history of dementia he was some agitation and wandering at times. However on current medication this is vastly improved. No changes were made to his medications for this indication during this hospitalization Status at Discharge Cognitive/behavioral status at discharge: at baseline, confused Functional status at discharge: uses cane/walker Overall status at discharge: patient is progressing back to baseline Time Spent with Patient Time spent: Greater than 30 minutes Exam Vital Signs (past 8 hours): - 02/20/25 08:42 02/20/25 08:42 Temperature 97.5 F L Respiratory Rate 18 Blood Pressure 111/47 L Pulse Oximetry 98 97 Oxygen Delivery Method Room Air Oxygen Flow Rate 0 0 Oxygen Delivery Method Room Air Oxygen Flow Rate 0 Objective Labs 02/20/25 04:55 02/19/25 05:06 Labs: Laboratory Results - last 24 hr 02/19/25 02/20/25 15:13 04:55 Hgb 11.0 L 10.1 L Hct 31.8 L 28.9 L PFSH Medical History Urinary retention Durant catheter in place Obstructive uropathy Complex renal cyst Dementia Acquired hypothyroidism Surgical History Anesthesia History of hernia repair Family History Father Cancer Mother Bronchitis Social History household members: none Smoking Status: Never smoker alcohol intake: never caffeine: Yes Discharge Assessment & Plan Assessment and Plan Plan of Treatment: Discharge to halfway for continued rehabilitation Continued careful monitoring for evidence of any sort of blood loss or bleeding secondary to his anticoagulation which was felt to be essential for his acute pulmonary embolism Discharge Plan Discharge Plan Patient Disposition: SNF Transfer to: [facility] Discharge orders & Medications Prescriptions: New Eliquis 5 mg Tablet 2.5 mg PO BID Qty: 45 0RF Continued olanzapine 2.5 mg tablet 2.5 mg PO DAILY Qty: 30 0RF olanzapine 7.5 mg tablet 7.5 mg PO BEDTIME Qty: 30 0RF quetiapine 25 mg tablet 25 mg PO BID Qty: 60 0RF magnesium hydroxide [Milk of Magnesia] 400 mg/5 mL Suspension 400 mg PO PRN PRN (Reason: Constipation) acetaminophen tablet 650 mg PO PRN PRN (Reason: pain/fever) aspirin 81 mg Tablet,Delayed Release (Dr/Ec) 81 mg PO BID Qty: 112 0RF Rx Instructions: Stop date is 02/26/2025 polyethylene glycol 3350 17 gram Powder In Packet 17 g PO DAILY Qty: 30 0RF fluoxetine [Prozac] 10 mg Capsule 10 mg PO DAILY Qty: 30 0RF finasteride 5 mg tablet 5 mg PO DAILY Qty: 90 3RF tamsulosin 0.4 mg capsule 0.8 mg PO DAILY Qty: 180 3RF Discontinued oxycodone 5 mg Tablet 5 mg PO Q3H PRN (Reason: Pain, Moderate (4-6)) Qty: 15 0RF hydrocodone-acetaminophen 5-325 mg tablet 1 tab PO Q4-6H PRN (Reason: pain) Qty: 20 0RF Follow up/Referrals: Estuardo Hinton MD [Primary Care Provider] - Discharge Health Status Multidrug resistant organism: No MDRO Precautions: [place] Diet/Activity/Treatments Diet: Diet as Tolerated Liquid consistency: Normal/Thin Food texture: Regular [facility] Rehab type: Physical therapy, Occupational therapy and Speech therapy Restrictions to mobility: WBAT RLE, no hip flexion past 90 deg, no crossing of legs or IR right leg. Visit Report/Discharge Packet Stand Alone Forms: Patient Portal/API Discharge Data Primary Care Provider: Estuardo Hinton Quality VTE Deep Vein Thrombosis/Pulmonary Embolism Present on Admission: No IH PROFEE Charge Codes Discharge inpatient/observation: 36721
--- NOTE | 2025-02-20 12:07 | CM.DPNOTE ---
DCP Continued: Reviewed EMR and team rounds for pt?s medical status. Per Provider, pt is medically cleared for discharge to SNF per PT recommendations. DCP coordinated discharge with [facility] at anytime via stretcher ambulance; utilizing previous admission for GLF/hip dislocation for MCR SNF benefit. PASRR initiated, hospital exempt needed. DCP coordinating with Pt Provider for discharge clinicals and in agreement with discharge to SNF. SW Admin kindly coordinated [facility] transport to [facility] at 1245. EXTRACT OPERATOR, Pt RN notified of S tranport at 1245. Plan: Anticipating dc to [facility] via BLS ETA 1245. CM Team will continue to follow for coordination of discharge plans. HAZEL SimsSW
[2025-02-20] MEDS: ACETAMINOPHEN 325 MG TABLET 650 MG PO (12:10)
[2025-02-20] MEDS: OXYCODONE IR 5 MG TABLET PO (12:11)
== END 2025-02-20 12:59 | DRG 811 ==
LOC: ED 02-18 03:46 → AC 02-18 04:13
PROVIDERS: Admitting Provider Family Medicine; Emergency Provider Family Medicine; Family Provider Family Medicine; PCP Internal Medicine; Referring Provider Family Medicine; Visit Provider Internal Medicine
DX: D64.9 Anemia, unspecified (principal); I26.99 Other pulmonary embolism without acute cor pulmonale; J96.01 Acute respiratory failure with hypoxia; F03.C11 Unspecified dementia, severe, with agitation; F03.C18 Unspecified dementia, severe, with other behavioral disturbance; E03.9 Hypothyroidism, unspecified; N13.9 Obstructive and reflux uropathy, unspecified; E86.0 Dehydration; N31.2 Flaccid neuropathic bladder, not elsewhere classified; Z91.83 Wandering in diseases classified elsewhere; Z96.641 Presence of right artificial hip joint; Z79.01 Long term (current) use of anticoagulants
CPT/HCPCS: 36415; 36430; 71045; 80053; 82550; 82805; 83605; 83690; 83735; 83880; 84145; 84484; 85014; 85018; 85025; 85610; 85730; 86850; 86900; 86901; 96374; 96376; 97162; 99285; P9016; J2270; J2470

== ENCOUNTER 2025-03-02 17:15 | Emergency (ER) | payer MEDICARE, SELFPAY ==
[2025-02-18 04:23] VITALS: BMI 19.9
[2025-03-02 17:42] VITALS: BP 131/59; PULSE 89; RESP 17; TEMP 36.6; O2SAT 97
[2025-03-02] MEDS: LIDOCAINE 2% (GLYDO) 6 ML GEL TOP (21:02)
[2025-03-02 21:59] VITALS: BP 117/80; PULSE 72; RESP 16; O2SAT 97
--- NOTE | 2025-03-02 23:16 | ED.MALEGU ---
HPI - Male Genitourinary General Chief complaint: Urogenital-Male Stated complaint: pulled catheter out bleeding Time Seen by Provider: 03/02/25 23:16 Source: patient Mode of arrival: Ambulatory Limitations: no limitations History of Present Illness HPI Narrative: 84-year-old male history of dementia, hypothyroidism, indwelling Durant catheter which pulled his catheter out earlier this evening. Presented to have it replaced. No other complaints currently. No complaints of hematuria or pain. Sudden notes he was in his baseline with his dementia in his not atypical for this to happen. Related Data Home Medications ?Medication ?Instructions ?Recorded ?Confirmed acetaminophen 650 mg PO PRN PRN pain/fever 01/15/25 02/17/25 magnesium hydroxide 400 mg/5 mL 400 mg PO PRN PRN Constipation 01/15/25 02/17/25 oral suspension (Milk of Magnesia) Previous Rx's ?Medication ?Instructions ?Recorded finasteride 5 mg tablet 5 mg PO DAILY #90 tabs 10/23/24 tamsulosin 0.4 mg capsule 0.8 mg (2 x 0.4 mg) PO DAILY #180 10/23/24 caps aspirin 81 mg tablet,delayed 81 mg PO BID #112 tabs 01/17/25 release fluoxetine 10 mg capsule (Prozac) 10 mg PO DAILY #30 caps 01/24/25 polyethylene glycol 3350 17 gram 17 g PO DAILY Constipation #30 ea 01/24/25 oral powder packet olanzapine 2.5 mg tablet 2.5 mg PO DAILY #30 tabs 01/25/25 olanzapine 7.5 mg tablet 7.5 mg PO BEDTIME #30 tabs 01/25/25 quetiapine 25 mg tablet 25 mg PO BID #60 tabs 01/25/25 apixaban 5 mg tablet (Eliquis) 2.5 mg (1/2 x 5 mg) PO BID #45 tabs 02/20/25 Allergies Allergy/AdvReac Type Severity Reaction Status Date / Time No Known Drug Allergies Allergy Verified 03/02/25 17:46 Review of Systems Review of Systems ROS Unobtainable: All systems reviewed & are unremarkable except as noted in HPI and below Patient History Medical History Urinary retention Durant catheter in place Obstructive uropathy Complex renal cyst Dementia Acquired hypothyroidism Surgical History Anesthesia History of hernia repair Family History Father Cancer Mother Bronchitis Social History household members: none Smoking Status: Current some day smoker alcohol intake: never caffeine: Yes Smoking Status: Current some day smoker Exam Narrative Exam Narrative: GENERAL: Alert and oriented to self, patient is ambulating in the department HEENT: Head normocephalic, atraumatic, EOMI, pupils reactive, face symmetric, moist mucous membranes NECK: Supple, full range of motion CARDIOVASCULAR: Regular rate and rhythm without murmurs, rubs or gallops. RESPIRATORY: Breath sounds equal bilaterally, no wheezes rales or rhonchi. ABDOMEN: Soft, nontender. Normoactive bowel sounds all 4 quadrants. No guarding or rebound, rigidity, no mass : No CVA tenderness, Durant catheter replaced by nursing currently draining. EXTREMITIES: Normal range of motion, no clubbing or edema. Neurovascularly intact NEUROLOGICAL: Cranial nerves II through XII grossly intact. Moving all extremities SKIN: Warm, dry, no petechiae, no rashes or lesions. Initial Vital Signs Initial Vital Signs: Vital Signs Temperature 98 F 03/02/25 17:42 Pulse Rate 89 03/02/25 17:42 Respiratory Rate 17 03/02/25 17:42 Blood Pressure 131/59 L 03/02/25 17:42 Pulse Oximetry 97 03/02/25 17:42 Oxygen Delivery Method Room Air 03/02/25 17:42 Course Orders Ordered: Discontinued Medications Lidocaine HCl (Lidocaine 2% (Glydo) 6 Ml Gel) 6 ml TOP NOW ONE Stop: 03/02/25 20:44 Last Admin: 03/02/25 21:02 Dose: 6 ml Documented By: MICHELLE Vital Signs Vital signs: Vital Signs - 8 hr 03/02/25 17:42 03/02/25 21:59 Temperature 98 F Pulse Rate 89 72 Respiratory Rate 17 16 Blood Pressure 131/59 L 117/80 Pulse Oximetry 97 97 Oxygen Delivery Method Room Air Room Air MDM - Male Genitourinary MDM Narrative Medical decision making narrative: Durant catheter was replaced by nursing, patient is ambulating in the department without any issue. Son is at bedside we will help him return to his memory care unit and states they will watch his catheter for any complications. Discharge Plan Departure Patient Disposition: Home Clinical Impression: Encounter for Durant catheter replacement Instructions: How to Care for Your Durant Catheter -- Male Activity Restrictions/Additional Instructions: Please return for any new changes, if you are catheter is not working or draining, any hematuria, bleeding, penile pain or abdominal pain or other new or concerning changes. Prescriptions: No Action olanzapine 2.5 mg tablet 2.5 mg PO DAILY Qty: 30 0RF olanzapine 7.5 mg tablet 7.5 mg PO BEDTIME Qty: 30 0RF quetiapine 25 mg tablet 25 mg PO BID Qty: 60 0RF magnesium hydroxide [Milk of Magnesia] 400 mg/5 mL Suspension 400 mg PO PRN PRN (Reason: Constipation) acetaminophen tablet 650 mg PO PRN PRN (Reason: pain/fever) aspirin 81 mg Tablet,Delayed Release (Dr/Ec) 81 mg PO BID Qty: 112 0RF Rx Instructions: Stop date is 02/26/2025 polyethylene glycol 3350 17 gram Powder In Packet 17 g PO DAILY Qty: 30 0RF fluoxetine [Prozac] 10 mg Capsule 10 mg PO DAILY Qty: 30 0RF Eliquis 5 mg Tablet 2.5 mg PO BID Qty: 45 0RF finasteride 5 mg tablet 5 mg PO DAILY Qty: 90 3RF tamsulosin 0.4 mg capsule 0.8 mg PO DAILY Qty: 180 3RF Stand Alone Forms: Patient Portal/API/Survey
== END 2025-03-02 23:19 | disposition home or self-care (01) ==
PROVIDERS: Emergency Provider Emergency Medicine; Family Provider Family Medicine
DX: T83.9XXA Unspecified complication of genitourinary prosthetic device, implant and graft, initial encounter (principal)
CPT/HCPCS: 99283